=== PATIENT | male | born 1935 | race Caucasian/White ===

== ENCOUNTER 2017-11-19 12:32 | Observation (INO) | payer MEDICARE, OTHER, SELFPAY ==
[2017-11-19] VITALS (12 sets, daily range): BP systolic 119–173; BP diastolic 59–103; PULSE 58–103; RESP 12–20; TEMP 36.6–36.9; O2SAT 94–98; BMI 28.9; BMI 29.0
--- NOTE | 2017-11-19 12:49 | RAD_ITS ---
STUDY: X-RAY CHEST REASON FOR EXAM: Male, 82 years old. Left anterior chest pain. TECHNIQUE: Single AP portable view of the chest. COMPARISON: Comparison is made with prior study dated December 10, 2015. FINDINGS: EKG electrodes are seen. Scattered calcified granulomas. The lungs are clear. There is no demonstrated pleural abnormality. Normal size heart. Normal mediastinum and gerber. Normal visualized pulmonary arteries. There is atherosclerotic tortuosity of the aortic arch and descending thoracic aorta. Normal visualized thoracic spine. Normal visualized ribs, clavicles, and shoulders. There is no demonstrated abnormality of the visualized soft tissue structures of the upper abdomen. RAD/Chest 1 View (Portable) IMPRESSION: No acute abnormality is seen. Electronically Signed: Neil Hines MD at 13:31 EST Tel [phone], Service support ,
--- NOTE | 2017-11-19 12:49 | EKG12_ITS ---
Test Reason : Blood Pressure : / mmHG Vent. Rate : 094 BPM Atrial Rate : 094 BPM P-R Int : 222 ms QRS Dur : 092 ms QT Int : 352 ms P-R-T Axes : 037 -17 016 degrees QTc Int : 440 ms Sinus rhythm with 1st degree A-V block Otherwise normal ECG Confirmed by LOUANN JAFFE, MANUEL ([id number]), photograph editor NAGA RANDHAWA ([id number]) on 11/22/2017 1:33:41 PM Referred By: SHANTELLE Confirmed By:MANUEL LEW MD
--- NOTE | 2017-11-19 12:54 | ED.VISSUMM ---
- ER Visit Summary Date of Service: 11/19/17 Chief Complaint: Achy left-sided chest pain with diaphoresis on Saturday and midsternal chest discomfort with radiation to both arms and diaphoresis this morning History of Present Illness: The patient is a 82 M because of aching chest discomfort that occurred on Saturday while at rest. Lasted approximately hour. He took one his 's nitro. There was no effect. He states it did not burn under his tongue. He denied nausea question dyspnea. There was no alleviating, precipitating or exacerbating factors. Both parents had [place] in their 80s. He states this morning at 0930 while at rest developed mid chest discomfort with radiation to left and right shoulder and down the right and left upper extremity associated with significant diaphoresis and no other symptoms. Since he was still having pain 1 hour after onset he took 1 of his 's nitroglycerin tablets. He states this 1 burned and it did improve his discomfort. He reports mild discomfort presently. He denies any fever, chills or night sweats. He denies any ocular, visual or auditory symptoms. He denies back pain. He denies any paresthesia, anesthesia or motor weakness. He denies any GI or symptoms. He was seen by Dr. Lonny Masters many years ago and his workup at that time was negative. Physical Examination: Patient's vitals remarkable blood pressure 173/95 and heart rate 103. He states he does not have history of hypertension. He is slightly diaphoretic. HEENT exam is unremarkable. Heart is regular without murmur, gallop or rub. S1 and S2 are normal. Lungs are clear to auscultation with good movement of air bilaterally. There is no reproducible chest or abdominal pain. Abdomen is soft nontender with no palpable subtle mass abdominal bruit. There is no asymmetry, swelling, discoloration, leg vein distention, palpable cords or tenderness along the distribution of the deep venous system. Patient is alert and oriented ?3. Motor is 5 over 5. Sensory is intact. DTRs are symmetric with no clonus or Babinski sign. Cranial 2 through 12 are intact. Cerebellar testing is normal. Test Results: EKG reveals a sinus rhythm rate of 94 with first-degree AV block, otherwise normal. Portable chest x-ray to read by me as negative. CBC is unremarkable. BMP reveals slight elevation of glucose of 116. Troponin less than 0.02. Emergency Department Course and Treatment: Chest pain workup was undertaken to evaluate cardiac versus noncardiac etiology. He will receive aspirin since he does not take aspirin and nitroglycerin was ordered since he still complaining of discomfort. Treatment Plan: Serial blood work and provocative testing Disposition: Hospitalist was informed the patient and will admit 23 hour observation monitored bed Impression: Chest pain unknown etiology This note was generated with PowWow[employer] dictation software. It may contain incorrect words, spelling, and punctuation that were not noted in review of the chart prior to signing ED Disposition - Plan for ED Patient: Chief Complaint: Chest Pain Referrals: Al Higuera MD [Primary Care Provider] -
--- NOTE | 2017-11-19 12:58 | ED.DCSUM_ITS ---
- ER Visit Summary Date of Service: 11/19/17 Chief Complaint: Achy left-sided chest pain with diaphoresis on Saturday and midsternal chest discomfort with radiation to both arms and diaphoresis this morning History of Present Illness: The patient is a 82 M because of aching chest discomfort that occurred on Saturday while at rest. Lasted approximately hour. He took one his 's nitro. There was no effect. He states it did not burn under his tongue. He denied nausea question dyspnea. There was no alleviating , precipitating or exacerbating factors. Both parents had [place] in their 80s. He states this morning at 0930 while at rest developed mid chest discomfort with radiation to left and right shoulder and down the right and left upper extremity associated with significant diaphoresis and no other symptoms. Since he was still having pain 1 hour after onset he took 1 of his 's nitroglycerin tablets. He states this 1 burned and it did improve his discomfort. He reports mild discomfort presently. He denies any fever, chills or night sweats. He denies any ocular, visual or auditory symptoms. He denies back pain. He denies any paresthesia, anesthesia or motor weakness. He denies any GI or symptoms. He was seen by Dr. Lonny Masters many years ago and his workup at that time was negative. Physical Examination: Patient's vitals remarkable blood pressure 173/95 and heart rate 103. He states he does not have history of hypertension. He is slightly diaphoretic. HEENT exam is unremarkable. Heart is regular without murmur, gallop or rub. S1 and S2 are normal. Lungs are clear to auscultation with good movement of air bilaterally. There is no reproducible chest or abdominal pain. Abdomen is soft nontender with no palpable subtle mass abdominal bruit. There is no asymmetry, swelling, discoloration, leg vein distention, palpable cords or tenderness along the distribution of the deep venous system. Patient is alert and oriented ?3. Motor is 5 over 5. Sensory is intact. DTRs are symmetric with no clonus or Babinski sign. Cranial 2 through 12 are intact. Cerebellar testing is normal. Test Results: EKG reveals a sinus rhythm rate of 94 with first-degree AV block, otherwise normal. Portable chest x-ray to read by me as negative. CBC is unremarkable. BMP reveals slight elevation of glucose of 116. Troponin less than 0.02. Emergency Department Course and Treatment: Chest pain workup was undertaken to evaluate cardiac versus noncardiac etiology. He will receive aspirin since he does not take aspirin and nitroglycerin was ordered since he still complaining of discomfort. Treatment Plan: Serial blood work and provocative testing Disposition: Hospitalist was informed the patient and will admit 23 hour observation monitored bed Impression: Chest pain unknown etiology This note was generated with [employer] dictation software. It may contain incorrect words, spelling, and punctuation that were not noted in review of the chart prior to signing ED Disposition - Plan for ED Patient: Chief Complaint: Chest Pain Referrals: Al Higuera MD [Primary Care Provider] -
[2017-11-19 13:00] LABS: Absolute Lymphocyte Count 2.01 X10^3/ul (0.83-4.51); Absolute Neutrophil Count 4.8 X10^3/uL (2.0-7.7); Basophil# 0.04 X10^3/uL; Basophil% 0.5 % (0-1); Eosinophil# 0.05 X10^3/uL; Eosinophils% 0.7 % (0-5); Hematocrit 42.6 % (40-54); Hemoglobin 14.5 g/dl (13.0-16.5); Lymphocyte # 2.01 X10^3/ul (4.0); Lymphocyte % 26.8 % (19-41); Mean Corpuscular Hgb 32.8 pg (27.0-32.0); Mean Corpuscular Volume 96.4 fL (80-94); Mean Platelet Vol. 10.3 fl (6.2-12.0); Monocyte# 0.63 X10^3/uL; Monocyte% 8.4 % (0-10); Neutrophil # 4.75 X10^3/uL (2.7-7.7); Neutrophil % 63.3 % (47-70); Platelet Count 272 K/mm3 (150-450); RBC Distribution Width CV 13.5 % (11.6-14.6); RBC Distribution Width SD 46.3 fl (35.1-43.9); Red Blood Count 4.42 M/mm3 (4.6-6.2); White Blood Count 7.5 K/mm3 (4.4-11.0)
[2017-11-19 13:02] LABS: POSITIVE COUNT NO; POSITIVE DIFFERENTIAL NO; POSITIVE MORPHOLOGY NO
[2017-11-19] MEDS: Aspirin 81 MG TAB.CHEW 324 MG PO (13:05)
[2017-11-19 13:15] LABS: Anion Gap 9 (5-15); BUN 16 mg/dL (7-18); BUN/Creat Ratio 16.3 RATIO (10-20); Chloride 106 mmol/L (98-107); Creatinine, Serum 0.98 mg/dL (0.70-1.30); EST Glomerular Filtration Rate 78 mL/min (>60); Est Glom Filt Rate - Afr Amer 95 mL/min (>60); Estimated Creatinine Clearance 58.16 ml/min; Glucose 116 mg/dL (74-106); Potassium 3.7 mmol/L (3.5-5.1); Sodium Level 140 mmol/L (136-145)
--- NOTE | 2017-11-19 13:52 | PCM.HP.STD ---
Problem List (1) Chest pain Status: Acute Qualifiers: Chest pain type: precordial pain Qualified Code(s): R07.2 - Precordial pain History of Present Illness Date of Admission: 11/19/17 Chief Complaint: Chest pain The patient is a 82 year old M in the emergency room at [facility] with chief complaint of midsternal chest pain which occurred this morning at rest. Patient described the pain as being dull and pressure-like, radiating to both arms, it also caused him to be sweaty and nauseated. Patient took 1 of his 's nitroglycerin today and this resolved the chest pain. The chest pain lasted approximately half an hour. Patient also stated that 48 hours ago he had an additional episode of chest discomfort which lasted 10 minutes this time it went into the left shoulder and down the left arm he described this also as a dull achy feeling and pressure-like in nature. Patient took 1 of his 's nitroglycerin but it did not have any effect on the discomfort and it went away after about 10 minutes. Patient has no history of medical problems, he takes no medications, he does take a baby aspirin daily. Evaluation in the emergency room included an EKG which showed a normal sinus rhythm without evidence of ischemic changes, patient's labs were unremarkable, patient's chest x-ray was unremarkable. On examination, patient's heart rate and rhythm was regular with occasional unifocal PVCs noted on the monitor, lungs are clear bilaterally, patient was alert and appropriate and had no lower extremity edema. Patient will be placed into observation status on PCU for chest pain, cardiac enzymes will be cycled, echocardiogram will be obtained, patient will undergo nuclear stress test (resting) if his enzymes remain negative. I will keep him on a baby aspirin a day for now Past Medical History Past Medical History (Chronic Problems): Chronic Problems Spinal stenosis (Chronic) Allergies gluten Adverse Reaction (Verified 06/16/17 15:18) Other celiac's disease Home Medications: Ambulatory Orders Medication Instructions Recorded NK [NK] 11/19/17 Surgical History: appendectomy, cataract, - - Lumbar surgery for spinal stenosis Psychiatric History: No pertinent psych hx Lives: Spouse/ Significant Other Smoking Status: Never smoker Tobacco Use: Non-smoker Alcohol: None Drugs: None - *Family History Maternal History Items: No pertinent history Paternal History Items: Heart Disease - of heart failure Review of Systems Constitutional: Denies: Anorexia, Chills, Fever, Night Sweats, Malaise, Weakness, Weight Change, Fatigue Eyes: Denies: Blurred vision, Cataracts, Conjunctivae Inflammation, Double vision, Drainage, Eyelid Inflammation HEENT: Denies: Difficulty Swallowing, Dysphasia, Ear Pain, Eye Pain, Head Aches, Hearing Changes, Nasal bleeding, Nasal Congestion, Post Nasal Drip Cardiovascular: Reports: Chest Pain, Chest Pressure. Denies: Claudication, Chest Tightness, Edema, Heaviness, Light Headedness, Orthopnea, Palpitations, Paroxysmal Noc. Dyspnea, Syncope Respiratory: Denies: Cough, Hemoptysis, Pleuritic Pain, Shortness of Breath, Shortness of breath at rest, Shortness of breath upon exertion, Sputum production, Wheezing Gastrointestinal: Reports: Nausea - With episodes of chest discomfort. Denies: Abdominal Pain, Constipation, Diarrhea, Hematemesis, Hematochezia, Melena, Vomiting Genitourinary: Denies: Dysuria, Frequency, Hematuria, Hesitancy, Incontinence, Nocturia, Urgency Musculoskeletal: Denies: Foot Pain, Hand Pain, Joint Pain, Joint stiffness, Joint swelling, Joint Tenderness Skin: Denies: Dryness, Jaundice, Pruritis, Rash Neurological: Denies: Balance problems, Blurred vision, Double vision, Slurred speech, Difficulty swallowing, Focal weakness, Headaches, Incoordination, Numbness, Tingling Psychiatric: Denies: Anxiety, Depression, Homicidal Ideations, Suicidal Ideations Endocrine: Denies: Change in Body Habitus, Heat/ Cold Intolerance, Polydipsia, Polyuria Hematologic/ Lymphatic: Denies: Adenopathy, Anemia, Easy Bruising, Easy Bleeding, Petechiae, Purpura VTE Information - Inpt Only VTE Present on Admission: No VTE Mechan Device Prophylaxis: None VTE Pharm Prophylaxis ordered?: Yes - Physical Exam General: Alert, Oriented x3, Cooperative, No apparent distress, Well developed, Well nourished HEENT: Atraumatic, PERRLA, EOMI, Normocephalic Oral: Moist Mucosa Neck: Supple, No JVD, Negative Carotid Bruits Lungs: Clear to auscultation, Normal air movement, No rhonchi, No wheeze, No rales Cardiovascular: Regular rate, Regular Rhythm, Normal S1, Normal S2, No murmurs, PMI Normal, No rub noted, No Gallop, - - unifocal PVCs are noted occasionally on the monitor Abdomen: Bowel Sounds Present, Soft, Non Tender, Non-Distended, No hernias noted Extremities: No clubbing, No cyanosis, No edema, Capillary Refill Less than 3 Seconds Skin: No rashes, No breakdown Musculoskeletal: No Tenderness to Palpation of Joints or Extremities Neurological: Cranial nerves II-XII grossly intact, Neuro grossly intact, Sensory exam intact to light touch and pain, Coordination normal Psych/Mental Status: Normal Affect, Appropriate, Alert and oriented to time, place, person, mood and affect Vital Signs Temp Pulse Resp BP Pulse Ox 98.2 F 91 16 127/83 H 98 11/19/17 12:34 11/19/17 13:10 11/19/17 12:34 11/19/17 13:10 11/19/17 13:06 Oxygen Flow Rate 2 Oxygen Delivery Method Nasal Cannula Weight: 89.584 kg Body Mass Index (BMI) 30.0 Laboratory Tests Past 24 Hrs 11/19/17 11/19/17 12:40 12:40 WBC 7.5 RBC 4.42 L Hgb 14.5 Hct 42.6 MCV 96.4 H MCH 32.8 H MCHC 34.0 RDW 13.5 RDW Differential 46.3 H Plt Count 272 MPV 10.3 Immature Gran % (Auto) 0.300 Neut % (Auto) 63.3 Lymph % (Auto) 26.8 [place] % (Auto) 8.4 Eos % (Auto) 0.7 Baso % (Auto) 0.5 Absolute Neuts (auto) 4.8 Absolute Lymphs (auto) 2.01 Total Counted Not Reportable Sodium 140 Potassium 3.7 Chloride 106 Carbon Dioxide 25.0 Anion Gap 9 BUN 16 Creatinine 0.98 Estim Creat Clear Calc 58.16 Est GFR (MDRD) Af Amer 95 Est GFR (MDRD) Non-Af 78 BUN/Creatinine Ratio 16.3 Glucose 116 H Calcium 9.0 Troponin I < 0.02 Assessment/Plan #1 precordial chest pain-etiology unclear, patient will be placed in observation status on PCU, enzymes will be cycled, patient will have an echocardiogram, if enzymes are negative, patient will have a resting nuclear stress test tomorrow. Patient will remain on one baby aspirin a day #2 unifocal PVCs-significance unknown patient will be monitored on telemetry Code Visit OBSV E&M: [id number] Initial observation care L3
--- NOTE | 2017-11-19 14:02 | HP.PCM_ITS ---
Problem List (1) Chest pain Status: Acute Qualifiers: Chest pain type: precordial pain Qualified Code(s): R07.2 - Precordial pain History of Present Illness Date of Admission: 11/19/17 Chief Complaint: Chest pain The patient is a 82 year old M in the emergency room at [facility] with chief complaint of midsternal chest pain which occurred this morning at rest. Patient described the pain as being dull and pressure-like, radiating to both arms, it also caused him to be sweaty and nauseated. Patient took 1 of his 's nitroglycerin today and this resolved the chest pain. The chest pain lasted approximately half an hour. Patient also stated that 48 hours ago he had an additional episode of chest discomfort which lasted 10 minutes this time it went into the left shoulder and down the left arm he described this also as a dull achy feeling and pressure-like in nature. Patient took 1 of his 's nitroglycerin but it did not have any effect on the discomfort and it went away after about 10 minutes. Patient has no history of medical problems, he takes no medications, he does take a baby aspirin daily. Evaluation in the emergency room included an EKG which showed a normal sinus rhythm without evidence of ischemic changes, patient 's labs were unremarkable, patient's chest x-ray was unremarkable. On examination, patient's heart rate and rhythm was regular with occasional unifocal PVCs noted on the monitor, lungs are clear bilaterally, patient was alert and appropriate and had no lower extremity edema. Patient will be placed into observation status on PCU for chest pain, cardiac enzymes will be cycled, echocardiogram will be obtained, patient will undergo nuclear stress test ( resting) if his enzymes remain negative. I will keep him on a baby aspirin a day for now Past Medical History Past Medical History (Chronic Problems): Chronic Problems Spinal stenosis (Chronic) Allergies gluten Adverse Reaction (Verified 06/16/17 15:18) Other celiac's disease Home Medications: Ambulatory Orders Medication Instructions Recorded NK [NK] 11/19/17 Surgical History: appendectomy, cataract, - - Lumbar surgery for spinal stenosis Psychiatric History: No pertinent psych hx Lives: Spouse/ Significant Other Smoking Status: Never smoker Tobacco Use: Non-smoker Alcohol: None Drugs: None - *Family History Maternal History Items: No pertinent history Paternal History Items: Heart Disease - of heart failure Review of Systems Constitutional: Denies: Anorexia, Chills, Fever, Night Sweats, Malaise, Weakness , Weight Change, Fatigue Eyes: Denies: Blurred vision, Cataracts, Conjunctivae Inflammation, Double vision, Drainage, Eyelid Inflammation HEENT: Denies: Difficulty Swallowing, Dysphasia, Ear Pain, Eye Pain, Head Aches , Hearing Changes, Nasal bleeding, Nasal Congestion, Post Nasal Drip Cardiovascular: Reports: Chest Pain, Chest Pressure. Denies: Claudication, Chest Tightness, Edema, Heaviness, Light Headedness, Orthopnea, Palpitations, Paroxysmal Noc. Dyspnea, Syncope Respiratory: Denies: Cough, Hemoptysis, Pleuritic Pain, Shortness of Breath, Shortness of breath at rest, Shortness of breath upon exertion, Sputum production, Wheezing Gastrointestinal: Reports: Nausea - With episodes of chest discomfort. Denies: Abdominal Pain, Constipation, Diarrhea, Hematemesis, Hematochezia, Melena, Vomiting Genitourinary: Denies: Dysuria, Frequency, Hematuria, Hesitancy, Incontinence, Nocturia, Urgency Musculoskeletal: Denies: Foot Pain, Hand Pain, Joint Pain, Joint stiffness, Joint swelling, Joint Tenderness Skin: Denies: Dryness, Jaundice, Pruritis, Rash Neurological: Denies: Balance problems, Blurred vision, Double vision, Slurred speech, Difficulty swallowing, Focal weakness, Headaches, Incoordination, Numbness, Tingling Psychiatric: Denies: Anxiety, Depression, Homicidal Ideations, Suicidal Ideations Endocrine: Denies: Change in Body Habitus, Heat/ Cold Intolerance, Polydipsia, Polyuria Hematologic/ Lymphatic: Denies: Adenopathy, Anemia, Easy Bruising, Easy Bleeding , Petechiae, Purpura VTE Information - Inpt Only VTE Present on Admission: No VTE Mechan Device Prophylaxis: None VTE Pharm Prophylaxis ordered?: Yes - Physical Exam General: Alert, Oriented x3, Cooperative, No apparent distress, Well developed, Well nourished HEENT: Atraumatic, PERRLA, EOMI, Normocephalic Oral: Moist Mucosa Neck: Supple, No JVD, Negative Carotid Bruits Lungs: Clear to auscultation, Normal air movement, No rhonchi, No wheeze, No rales Cardiovascular: Regular rate, Regular Rhythm, Normal S1, Normal S2, No murmurs, PMI Normal, No rub noted, No Gallop, - - unifocal PVCs are noted occasionally on the monitor Abdomen: Bowel Sounds Present, Soft, Non Tender, Non-Distended, No hernias noted Extremities: No clubbing, No cyanosis, No edema, Capillary Refill Less than 3 Seconds Skin: No rashes, No breakdown Musculoskeletal: No Tenderness to Palpation of Joints or Extremities Neurological: Cranial nerves II-XII grossly intact, Neuro grossly intact, Sensory exam intact to light touch and pain, Coordination normal Psych/Mental Status: Normal Affect, Appropriate, Alert and oriented to time, place, person, mood and affect Vital Signs Temp Pulse Resp BP Pulse Ox 98.2 F 91 16 127/83 H 98 11/19/17 12:34 11/19/17 13:10 11/19/17 12:34 11/19/17 13:10 11/19/17 13:06 Oxygen Flow Rate 2 Oxygen Delivery Method Nasal Cannula Weight: 89.584 kg Body Mass Index (BMI) 30.0 Laboratory Tests Past 24 Hrs 11/19/17 11/19/17 12:40 12:40 WBC 7.5 RBC 4.42 L Hgb 14.5 Hct 42.6 MCV 96.4 H MCH 32.8 H MCHC 34.0 RDW 13.5 RDW Differential 46.3 H Plt Count 272 MPV 10.3 Immature Gran % (Auto) 0.300 Neut % (Auto) 63.3 Lymph % (Auto) 26.8 [place] % (Auto) 8.4 Eos % (Auto) 0.7 Baso % (Auto) 0.5 Absolute Neuts (auto) 4.8 Absolute Lymphs (auto) 2.01 Total Counted Not Reportable Sodium 140 Potassium 3.7 Chloride 106 Carbon Dioxide 25.0 Anion Gap 9 BUN 16 Creatinine 0.98 Estim Creat Clear Calc 58.16 Est GFR (MDRD) Af Amer 95 Est GFR (MDRD) Non-Af 78 BUN/Creatinine Ratio 16.3 Glucose 116 H Calcium 9.0 Troponin I < 0.02 Assessment/Plan #1 precordial chest pain-etiology unclear, patient will be placed in observation status on PCU, enzymes will be cycled, patient will have an echocardiogram, if enzymes are negative, patient will have a resting nuclear stress test tomorrow. Patient will remain on one baby aspirin a day #2 unifocal PVCs-significance unknown patient will be monitored on telemetry Code Visit OBSV E&M: [id number] Initial observation care L3
--- NOTE | 2017-11-19 14:20 | ECHOD_ITS ---
Reason For Study: CHEST PAIN Procedure This was a 2D Doppler, Color Flow transthoracic echocardiogram. The exam was of fair technical quality due to poor acoustic windows. The study was technically difficult. Contrast injection was performed. Exam performed in department. Left Ventricle Normal LV size. Left ventricular systolic function is normal. The estimated ejection fraction is 60 %. No regional wall motion abnormalities noted. Right Ventricle Normal RV size. Normal systolic function. Atria Normal left atrium. Normal right atrium. No doppler evidence for ASD. Mitral Valve There is mild to moderate mitral annular calcification. Equivocal mitral valve prolapse. Trivial mitral valve insufficiency. Tricuspid Valve Normal tricuspid valve. Trivial tricuspid valve insufficiency. Right ventricular systolic pressure estimated to be 31 mmHg. Aortic Valve Trisinus/trileaflet aortic valve. Mild focal aortic valve calcification. Trivial aortic valve insufficiency. Pulmonic Valve The pulmonic valve is not well visualized. Trivial eccentric pulmonic valve insufficiency. Great Vessels Normal sized aortic root. Pericardium/Pleural No pericardial effusion. Medication Diluted definity 3ml given slow IV push to enhance endocardial definition. MMode/2D Measurements & Calculations LVIDd: 4.9 cm IVSd: 1.00 cm Ao root diam: 3.7 cm LVIDs: 3.5 cm LVPWd: 1.2 cm LA dimension: 3.8 cm RVDd: 3.9 cm FS: 27.7 % LAV(MOD-bp): 39.6 ml EDV(MOD-sp4): 117.4 ml EDV(MOD-sp2): 106.9 ml LAV(MOD-bp) Indexed: 19.4 ml/m2 ESV(MOD-sp4): 52.9 ml EF(MOD-sp2): 64.3 % LAV(MOD-sp2): 52.1 ml EF(MOD-sp4): 55.0 % LAV(MOD-sp4): 24.1 ml SV(MOD-sp4): 64.5 ml SV(MOD-sp2): 68.8 ml LA A4 area: 11.3 cm2 RA A4 area: 8.8 cm2 Doppler Measurements & Calculations MV E max jeannine: 63.9 cm/sec Ao V2 max: 143.1 cm/sec AI max jeannine: 332.5 cm/sec MV A max jeannine: 114.1 cm/sec Ao max P.2 mmHg AI max P.2 mmHg MV E/A: 0.56 AI dec slope: 163.4 cm/sec2 AI P1/2t: 596.1 msec PA V2 max: 110.3 cm/sec PI end-d jeannine: 129.4 cm/sec TR max jeannine: 263.9 cm/sec TR max P.9 mmHg Interpretation Summary The study was technically difficult. Contrast injection was performed. Left ventricular systolic function is normal. The estimated ejection fraction is 60 %. There is mild to moderate mitral annular calcification. Equivocal mitral valve prolapse. Trivial mitral valve insufficiency. Trivial tricuspid valve insufficiency. Mild focal aortic valve calcification. Trivial aortic valve insufficiency. Trivial eccentric pulmonic valve insufficiency. Right ventricular systolic pressure estimated to be 31 mmHg. Ordering Physician: Joshua Garrison Referring Physician: VICKI SALINAS Performed By: Ya Robleod RDCS, RVT
[2017-11-19] MEDS: Heparin Injection 5,000 UNITS/ML Syringe 5000 UNITS SC ×2 (15:57→21:02)
[2017-11-20] MEDS: 0.9% NaCl Peripheral Flush Adult/Peds IV (02:47)
[2017-11-20 02:50] VITALS: BP 133/70; PULSE 66; RESP 18; TEMP 36.7; O2SAT 95
[2017-11-20 03:09] LABS: Absolute Lymphocyte Count 1.91 X10^3/ul (0.83-4.51); Absolute Neutrophil Count 3.3 X10^3/uL (2.0-7.7); Basophil# 0.05 X10^3/uL; Basophil% 0.8 % (0-1); Eosinophil# 0.06 X10^3/uL; Hematocrit 37.4 % (40-54); Hemoglobin 13.2 g/dl (13.0-16.5); Lymphocyte # 1.91 X10^3/ul (4.0); Lymphocyte % 31.9 % (19-41); Mean Corp Hgb Conc 35.3 g/gl (32-36); Mean Corpuscular Hgb 33.8 pg (27.0-32.0); Mean Corpuscular Volume 95.9 fL (80-94); Mean Platelet Vol. 10.3 fl (6.2-12.0); Monocyte# 0.67 X10^3/uL; Monocyte% 11.2 % (0-10); Neutrophil # 3.29 X10^3/uL (2.7-7.7); Neutrophil % 54.9 % (47-70); POSITIVE COUNT NO; POSITIVE DIFFERENTIAL NO; POSITIVE MORPHOLOGY NO; Platelet Count 230 K/mm3 (150-450); RBC Distribution Width CV 13.3 % (11.6-14.6); RBC Distribution Width SD 45.1 fl (35.1-43.9)
[2017-11-20 03:12] VITALS: PULSE 65
[2017-11-20 03:13] LABS: International Normalized Ratio 1.2; Prothrombin Time (Protime)PT. 14.9 SECONDS (11.7-14.9)
[2017-11-20 03:14] LABS: Partial Thromboplast Time 51.3 Seconds (24.1-36.2)
[2017-11-20 03:47] LABS: Anion Gap 6 (5-15); BUN 16 mg/dL (7-18); BUN/Creat Ratio 18.9 RATIO (10-20); Calcium,Total 8.4 mg/dL (8.5-10.1); Chloride 106 mmol/L (98-107); Creatinine, Serum 0.85 mg/dL (0.70-1.30); EST Glomerular Filtration Rate 92 mL/min (>60); Est Glom Filt Rate - Afr Amer 112 mL/min (>60); Estimated Creatinine Clearance 67.06 ml/min; Glucose 98 mg/dL (74-106); Sodium Level 140 mmol/L (136-145)
--- NOTE | 2017-11-20 05:55 | EKG12_ITS ---
Test Reason : MORNING EKG Blood Pressure : / mmHG Vent. Rate : 064 BPM Atrial Rate : 064 BPM P-R Int : 214 ms QRS Dur : 098 ms QT Int : 410 ms P-R-T Axes : 021 -10 020 degrees QTc Int : 422 ms Sinus rhythm with 1st degree A-V block Otherwise normal ECG Confirmed by LOUANN JAFFE, MANUEL ([id number]), clinical editor NAGA RANDHAWA ([id number]) on 11/25/2017 1:58:29 PM Referred By: Confirmed By:MANUEL LEW MD
[2017-11-20 06:58] VITALS: PULSE 70
[2017-11-20] MEDS: Aspirin 81 MG TAB.CHEW PO (07:42)
[2017-11-20 07:45] VITALS: BP 140/71; PULSE 71; RESP 15; TEMP 36.7; O2SAT 96
[2017-11-20 11:00] VITALS: PULSE 62
[2017-11-20] MEDS: Heparin Injection 5,000 UNITS/ML Syringe 5000 UNITS SC (13:41)
[2017-11-20 13:42] VITALS: BP 132/75; PULSE 68; RESP 16; TEMP 37.1; O2SAT 94
--- NOTE | 2017-11-20 13:48 | PCM.DC ---
- Discharge Diagnoses Reason(s) for Visit for Discharge Instructions: chest pain You will use the following diet at home:: Regular Your food should be the consistency of: Regular Your liquids should be the consistency of: Regular/Thin Discharge Activity: Return to Normal Activity Additional Instructions: Your stress test was negative. Please follow-up with your doctor on discharge. Allergies/Adverse Reactions: Allergies gluten Adverse Reaction (Verified 06/16/17 15:18) Other celiac's disease Medications to take at Discharge Aspirin [Aspirin, Baby] 81 mg PO DAILY@0800 #0 tab.chew 11/20/17 Primary Care Physician: Al Higuera MD [Primary Care Provider] - Please follow up with your Primary Care Physician in: within 2 weeks Proposed Discharge Date: 11/20/17
--- NOTE | 2017-11-20 13:50 | PCM.DC.SUM ---
Discharge Date and Diagnosis Date of Admission: 11/19/17 Date of Discharge: 11/20/17 - Primary Discharge Diagnosis Chest pain - Secondary Discharge Diagnosis Chronic Problems Spinal stenosis (Chronic) Hospital Course and Treatment Imaging Results: Clinical Impression(s) from Imaging Studies Chest X-Ray 11/19/17 12:49 IMPRESSION: No acute abnormality is seen. Electronically Signed: Neil Hines MD at 13:31 EST Tel [phone], Service support , None Operations: None Procedures: None Summary of Care Provided: 82 year old M with no significant past medical history who comes in to the hospital with complaints of midsternal chest pain that located at rest, described as dull and pressure-like , radiating to both arms, causing him to be sweaty and nauseated. Patient says his chest pain went away with his 's nitroglycerin. His admitting EKG showed normal sinus rhythm with no ST-T changes, his labs are unremarkable as well as his chest x-ray. Patient was admitted to the monitored bed, monitored on telemetry with no acute events. He underwent 2D echo that was essentially normal. He also underwent stress test that was negative. Patient continued to be asymptomatic throughout his hospital stay and was subsequently discharged to continue on baby aspirin. He will follow-up with his primary care doctor within 2 weeks. Discharge Diet: No Restrictions Discharge Activity: Return to Normal Activity Home Medications: Medications to take at Discharge Aspirin [Aspirin, Baby] 81 mg PO DAILY@0800 #0 tab.chew 11/20/17 Primary Care Physician: Al Higuera MD [Primary Care Provider] - Please follow up with your Primary Care Physician in: within 2 weeks Disposition: Home Minutes spent on discharge:: 25 Patient Condition:: Stable Meaningful Use Info Meaningful Use Diagnoses (Choose all that apply): None applicable Code Visit Inpatient E&M: 78560 Disch Hosp
--- NOTE | 2017-11-20 14:14 | CHAPLAIN ---
Type of Pastoral Visit _x__ Initial Visit ___ Follow-up Visit ___ On-call Visit ___ General Patient Visit ___ Spiritual Assessment ___ Family Conference ___ Bereavement ___ Rapid Response ___ Code Blue ___ Other (describe below) Pastoral Care Referral From _x__ Patient ___ Family ___ Nurse ___ Physician ___ Plating Tank Operator Apprentice ___ Outsole Compressor ___ Other (describe below) Sacrament/Intervention _x__ Active listening ___ Anointing ___ Alevism ___ Bereavement ___ Communion ___ Linda exploration ___ ___ Life review _x__ Prayer ___ Reconciliation ___ Sacrament of Sick ___ Supportive presence ___ Wedding ___ Other (describe below) Pastoral Comments
--- NOTE | 2017-11-20 14:24 | STRESSREP ---
Stress Test Report Pharmacologic myocardial perfusion stress test. 82-year-old man with a history of chest pain. Stress protocol: Resting EKG demonstrates sinus rhythm with a rate of 71 bpm resting blood pressure is 142/84 mmHg. 0.4 mg of regadenoson was infused per usual protocol followed by rapid intravenous saline flush injection continuous EKG monitoring was performed. The patient maintained sinus rhythm throughout the recording the resting heart rate was 72 bpm with a maximum heart rate of 94 bpm. The maximum workload was 1 metabolic equivalent. At rest there were no ST or T-wave changes noted to suggest abnormal flow reserve at peak infusion no ST or T-wave changes were noted to suggest abnormal flow reserve. Myocardial perfusion protocol. 9.9 mCi of technetium 99m sestamibi was injected at rest. 0.4 mg of regadenoson was infused per usual protocol peak infusion 30.3 mCi of technetium 99m sestamibi was injected. Stress images were obtained. Stress and rest images were reconstructed and compared in the short axis vertical long and horizontal long axis. Gated images were also obtained. Perfusion SPECT analysis: Review of the stress images demonstrate normal uptake of tracer noted in all areas of the myocardium. The resting images similarly demonstrate normal uptake of tracer noted in all areas of the myocardium. No areas of reversibility are noted suggest ischemia. Gated SPECT analysis: The gated ejection fraction is noted to be 61%. Conclusion: Normal pharmacologic myocardial perfusion stress test. Preserved ejection fraction.
--- NOTE | 2017-11-20 15:05 | STRESSREP_ITS ---
Stress Test Report Pharmacologic myocardial perfusion stress test. 82-year-old man with a history of chest pain. Stress protocol: Resting EKG demonstrates sinus rhythm with a rate of 71 bpm resting blood pressure is 142/84 mmHg. 0.4 mg of regadenoson was infused per usual protocol followed by rapid intravenous saline flush injection continuous EKG monitoring was performed. The patient maintained sinus rhythm throughout the recording the resting heart rate was 72 bpm with a maximum heart rate of 94 bpm. The maximum workload was 1 metabolic equivalent. At rest there were no ST or T- wave changes noted to suggest abnormal flow reserve at peak infusion no ST or T- wave changes were noted to suggest abnormal flow reserve. Myocardial perfusion protocol. 9.9 mCi of technetium 99m sestamibi was injected at rest. 0.4 mg of regadenoson was infused per usual protocol peak infusion 30.3 mCi of technetium 99m sestamibi was injected. Stress images were obtained. Stress and rest images were reconstructed and compared in the short axis vertical long and horizontal long axis. Gated images were also obtained. Perfusion SPECT analysis: Review of the stress images demonstrate normal uptake of tracer noted in all areas of the myocardium. The resting images similarly demonstrate normal uptake of tracer noted in all areas of the myocardium. No areas of reversibility are noted suggest ischemia. Gated SPECT analysis: The gated ejection fraction is noted to be 61%. Conclusion: Normal pharmacologic myocardial perfusion stress test. Preserved ejection fraction.
== END 2017-11-20 14:20 | disposition home or self-care (01) ==
LOC: ED 13:35 → PCU 13:56
PROVIDERS: Admitting Provider Internal Medicine; Emergency Provider Emergency Medicine; Family Provider Family Medicine; PCP Family Medicine; Visit Provider Internal Medicine
DX: R07.2 Precordial pain (principal); M48.061 Spinal stenosis, lumbar region without neurogenic claudication; M25.512 Pain in left shoulder; M25.511 Pain in right shoulder; I49.3 Ventricular premature depolarization; R11.0 Nausea
CPT/HCPCS: 36415; 71045; 78452; 80048; 84484; 85025; 85610; 85730; 93005; 93017; 93306; 96372; 99218; 99285; A9500; Q9957; A4216; C8929; G0378; J2785

== ENCOUNTER → 2017-12-04 14:43 | Outpatient (CLI) | payer MEDICARE, OTHER, SELFPAY ==
--- NOTE | 2017-12-04 15:00 | RAD_ITS ---
STUDY: X-RAY - ABDOMEN/PELVIS REASON FOR EXAM: Male, 82 years old. Constipation. Pain. TECHNIQUE: AP supine and upright views of the abdomen and pelvis. COMPARISON: January 22, 2017 FINDINGS: Normal visualized lung bases. There is an unremarkable bowel gas pattern. There is a moderate amount of feces in the colon. There is no demonstrated free abdominal air. The visualized liver, spleen and kidneys are grossly normal in size and morphology. Incidentally noted is a stable calcification in the right upper quadrant of the abdomen There are postsurgical changes in the region of the prostate. There is generalized osteopenia with lower lumbar spondylosis and postsurgical changes. RAD/Abd Inc Decub and/or Erect IMPRESSION: Moderate amount of feces in the colon. No acute pathology. Electronically Signed: Daniel Lora MD at 19:09 EST , Service support ,
== END ==
PROVIDERS: Family Provider Family Medicine; PCP Family Medicine; Visit Provider Family Medicine Geriatric Medicine
DX: K59.09 Other constipation (principal)
CPT/HCPCS: 74019

== ENCOUNTER → 2017-12-04 14:45 | Outpatient (CLI) | payer MEDICARE, OTHER, SELFPAY ==
[2017-12-04 17:21] LABS: Absolute Lymphocyte Count 1.49 X10^3/ul (0.83-4.51); Absolute Neutrophil Count 4.7 X10^3/uL (2.0-7.7); Basophil# 0.02 X10^3/uL; Basophil% 0.3 % (0-1); Eosinophil# 0.05 X10^3/uL; Eosinophils% 0.7 % (0-5); Hematocrit 40.1 % (40-54); Hemoglobin 13.8 g/dl (13.0-16.5); Lymphocyte # 1.49 X10^3/ul (4.0); Lymphocyte % 21.5 % (19-41); Mean Corp Hgb Conc 34.4 g/gl (32-36); Mean Corpuscular Hgb 33.5 pg (27.0-32.0); Mean Corpuscular Volume 97.3 fL (80-94); Mean Platelet Vol. 10.8 fl (6.2-12.0); Monocyte# 0.62 X10^3/uL; Neutrophil # 4.73 X10^3/uL (2.7-7.7); Neutrophil % 68.4 % (47-70); Platelet Count 268 K/mm3 (150-450); RBC Distribution Width CV 13.5 % (11.6-14.6); RBC Distribution Width SD 47.2 fl (35.1-43.9); Red Blood Count 4.12 M/mm3 (4.6-6.2); White Blood Count 6.9 K/mm3 (4.4-11.0)
[2017-12-04 17:30] LABS: POSITIVE COUNT NO; POSITIVE DIFFERENTIAL NO; POSITIVE MORPHOLOGY NO
[2017-12-04 17:34] LABS: ALB/GLOB Ratio 1.2 RATIO (0.9-2.4); AST(SGOT) 34 U/L (15-37); Alanine Aminotransfer ALT/SGPT 33 U/L (16-61); Albumin, Serum 4.4 g/dL (3.2-5.0); Alkaline Phosphatase 89 U/L (45-117); Anion Gap 9 (5-15); BUN 26 mg/dL (7-18); BUN/Creat Ratio 27.4 RATIO (10-20); Calcium,Total 8.6 mg/dL (8.5-10.1); Chloride 103 mmol/L (98-107); Creatinine, Serum 0.95 mg/dL (0.70-1.30); EST Glomerular Filtration Rate 81 mL/min (>60); Est Glom Filt Rate - Afr Amer 98 mL/min (>60); Globulin 3.6 g/dL (2.2-4.2); Glucose 88 mg/dL (74-106); Potassium 3.7 mmol/L (3.5-5.1); Sodium Level 139 mmol/L (136-145); Thyroid Stim Hormone (TSH) 1.23 uIU/mL (0.358-3.74)
[2017-12-06 10:27] LABS: Vitamin D,25 Hydroxy 13.7 ng/mL (19.95-100.01)
== END ==
PROVIDERS: Visit Provider Family Medicine Geriatric Medicine
DX: E55.9 Vitamin D deficiency, unspecified (principal); R53.83 Other fatigue; K59.09 Other constipation
CPT/HCPCS: 36415; 74019; 80053; 82306; 84443; 85025

== ENCOUNTER → 2018-05-29 09:16 | Outpatient (CLI) | payer MEDICARE, OTHER, SELFPAY ==
[2018-05-29 11:45] LABS: AST(SGOT) 26 U/L (15-37); Alanine Aminotransfer ALT/SGPT 29 U/L (16-61); Albumin, Serum 4.2 g/dL (3.2-5.0); Alkaline Phosphatase 91 U/L (45-117); Anion Gap 6 (5-15); BUN 16 mg/dL (7-18); BUN/Creat Ratio 15.1 RATIO (10-20); Calcium,Total 9.2 mg/dL (8.5-10.1); Chloride 104 mmol/L (98-107); Creatinine, Serum 1.06 mg/dL (0.70-1.30); EST Glomerular Filtration Rate 71 mL/min (>60); Est Glom Filt Rate - Afr Amer 86 mL/min (>60); Glucose 111 mg/dL (74-106); Potassium 4.2 mmol/L (3.5-5.1); Protein, Total 8.2 g/dL (6.4-8.2); Sodium Level 139 mmol/L (136-145)
[2018-05-29 14:08] LABS: Absolute Neutrophil Count 3.8 X10^3/uL (2.0-7.7); Basophil# 0.03 X10^3/uL; Basophil% 0.5 % (0-1); Eosinophil# 0.05 X10^3/uL; Eosinophils% 0.8 % (0-5); Hematocrit 43.1 % (40-54); Hemoglobin 14.2 g/dl (13.0-16.5); Lymphocyte % 26.1 % (19-41); Mean Corp Hgb Conc 32.9 g/gl (32-36); Mean Corpuscular Hgb 32.7 pg (27.0-32.0); Mean Corpuscular Volume 99.3 fL (80-94); Mean Platelet Vol. 11.3 fl (6.2-12.0); Monocyte# 0.64 X10^3/uL; Monocyte% 10.4 % (0-10); Neutrophil # 3.81 X10^3/uL (2.7-7.7); Neutrophil % 62.2 % (47-70); Platelet Count 263 K/mm3 (150-450); RBC Distribution Width CV 13.8 % (11.6-14.6); Red Blood Count 4.34 M/mm3 (4.6-6.2); White Blood Count 6.1 K/mm3 (4.4-11.0)
[2018-05-29 14:11] LABS: POSITIVE COUNT NO; POSITIVE DIFFERENTIAL NO; POSITIVE MORPHOLOGY NO
[2018-05-30 08:25] LABS: Vitamin B12 503 pg/mL (211-911); Vitamin D,25 Hydroxy 28.8 ng/mL (29.95-100.01)
== END ==
PROVIDERS: Family Provider Internal Medicine; PCP Internal Medicine; Visit Provider Internal Medicine
DX: K90.9 Intestinal malabsorption, unspecified (principal)
CPT/HCPCS: 36415; 80053; 82306; 82607; 85025

== ENCOUNTER → 2018-07-07 09:21 | Outpatient (CLI) | payer MEDICARE, OTHER, SELFPAY | PROVIDERS: Family Provider Internal Medicine; PCP Internal Medicine; Visit Provider Internal Medicine | DX: R10.9 Unspecified abdominal pain (principal) | CPT/HCPCS: 82274 ==

== ENCOUNTER → 2018-08-07 08:58 | Outpatient (CLI) | payer MEDICARE, OTHER, SELFPAY ==
--- NOTE | 2018-08-07 09:00 | US_ITS ---
STUDY: ABDOMINAL ULTRASOUND - RIGHT UPPER QUADRANT REASON FOR VISIT: Male, 82 years old. Right upper quadrant pain radiating to back x2 years TECHNIQUE: Ultrasound evaluation of the right upper quadrant was performed with real-time and static metz-scale imaging. TECHNICAL QUALITY: Limited. Examination limited by bowel gas. COMPARISON: None. FINDINGS: Liver: The liver measures 13.1 cm. There is normal echogenicity of the liver. The bile ducts are within normal limits. There is hepatic color flow. The direction of portal flow is hepatopetal. There is no demonstrated mass lesion. Gallbladder: Normal distended gallbladder. The gallbladder wall measures 3.9 mm. There is a negative sonographic Quezada's sign. There is no pericholecystic fluid. There are no gallstones. There are several small hyperechoic nonmobile foci of the gallbladder which may represent polyps. Common Bile Duct (C.B.D.): The common bile duct measures 3.2 mm. Pancreas: There is nonvisualization of the pancreas. Right Kidney: Normal size of the right kidney. The right kidney measures 9.1 x 4.7 x 4.3 cm. Normal renal cortex. The right cortex measures 1.3 cm. There is no demonstrated renal mass or cyst. There is no right hydronephrosis. US/Gallbladder IMPRESSION: Limited study secondary to excessive bowel gas artifact. Several small hyperechoic nonmobile foci along the gallbladder wall noted which may represent polyps. There is nonvisualization of the pancreas. Electronically Signed: Malachi Ferro MD at 19:03 EDT , Service support ,
== END ==
PROVIDERS: Family Provider Internal Medicine; PCP Internal Medicine; Referring Provider Surgery; Visit Provider Surgery
DX: R10.11 Right upper quadrant pain (principal)
CPT/HCPCS: 76705

== ENCOUNTER 2018-08-19 07:23 | Day surgery (SDC) | payer MEDICARE, OTHER, SELFPAY ==
--- NOTE | 2018-08-19 | IMM_PTH ---
PATIENT: SARAH WHALEY LOC: EN U#:[id number] AGE/SX: 82/M ROOM: RE08/19/[address]: Dr. Adolph Wilde MD : 1935 BED: DIS: 08/19/2018 SPEC #: [id number] RECD: 08/19/18 15:53 STATUS: AI REKeyon #: [id number] MAXIMINO: 08/19/18 00:[address]: Adolph Wilde DEPT: IMMUNOHISTOCHEMISTRY RECD BY: Bhumika Trimble ENTERED: 08/19/18 15:53 SP TYPE: IMMUNO OTHR DR: Dr. Abilio Valencia MD Tissues: Stomach, NOS Procedures: H Pylori (initial) PHYSICIAN & [place] [id number] SPECIMEN INFORMATION: Tissue Source: Antrum biopsy Clinical Info: RUQ pain Specimen Number: [id number] CPT code: 17014 METHODOLOGY: Deparaffinized sections of prefer/formalin-fixed tissue or PAP/DQ stained slides are incubated with monoclonal/polyclonal antibodies/oligonucleotide probes. Localization is made via biotin free immunoperoxidase method. Appropriate controls are performed and reacted as expected. Results on target cell population are indicated in the following table: RESULTS: ANTIBODY / CLONE RESULT H Pylori (polyclonal) negative These tests were developed and their performance characteristics determined by [facility]. They may not have been cleared or approved by the U.S. Food and Drug Administration. The FDA has determined that such clearance or approval is not necessary. INTERPRETATION: Antrum, biopsy: Negative for Helicobacter pylori organisms. SJ:juan luis 08/20/18
[2018-08-19 07:54] VITALS: BP 140/72; PULSE 80; RESP 16; TEMP 36.7; O2SAT 98; BMI 29.2
--- NOTE | 2018-08-19 08:30 | EGD_PTH ---
PATIENT: SARAH WHALEY LOC: EN U#:[id number] AGE/SX: 82/M ROOM: RE08/19/[address]: Dr. Adolph Wilde MD : 1935 BED: DIS: 08/19/2018 SPEC #: [id number] RECD: 08/19/18 12:22 STATUS: AI SHAYE #: [id number] MAXIMINO: 08/19/18 08:[address]: Adolph Wilde DEPT: SURGICAL PATHOLOGY RECD BY: Tequila North ENTERED: 08/19/18 12:47 SP TYPE: EGD BIOPSY OT DR: Dr. Abilio Valencia MD Tissues: Gastric mucous membrane Procedures: Surgery Specimen Level IV HEADER OPERATION: EGD ([facility] [place]) PRE-OP DIAGNOSIS: RUQ pain TISSUE SUBMITTED: Antrum biopsy for H. pylori and path MICROSCOPIC DIAGNOSIS Gastric antrum, biopsy: Chronic gastritis, mild to moderate. AM:juan luis 08/20/18 COMMENT The results of immunohistochemistry for Helicobacter pylori will be reported separately ([id number]). MICROSCOPIC DESCRIPTION Slides are reviewed. GROSS DESCRIPTION Received in fixative is one container labeled with the patient's name and designated antrum biopsy for H. pylori and path. The specimen consists of multiple irregular fragments of light elizabeth soft tissue that in aggregate measure 0.8 x 0.3 x 0.1 cm. The specimen is totally submitted in one cassette. / SJ:juan luis 08/19/18 TC:3 CPT: 18262
[2018-08-19 09:01] VITALS: BP 102/52; BP 140/72; PULSE 63; RESP 16; TEMP 36.8; O2SAT 97
[2018-08-19 09:06] VITALS: BP 108/57; BP 140/72; PULSE 61; RESP 16; O2SAT 97
--- NOTE | 2018-08-19 09:08 | OP.ENDO_ITS ---
Patient Name: Bret Rivera Procedure Date: 08/19/2018 8:49 AM Date of : 1935 Age: 82 Procedure: Upper GI endoscopy Indications: Abdominal pain in the right upper quadrant Providers: Adolph Wilde MD Referring MD: Adolph Wilde MD Medicines: Monitored Anesthesia Care Patient Profile: This is an 82 year old male. Refer to note in patient chart for documentation of history and physical. Complications: No immediate complications. Estimated blood loss: Minimal. Procedure: Pre-Anesthesia Assessment: - Prior to the procedure, a History and Physical was performed, and patient medications and allergies were reviewed. The patient's tolerance of previous anesthesia was also reviewed. The risks and benefits of the procedure and the sedation options and risks were discussed with the patient. All questions were answered, and informed consent was obtained. Prior Anticoagulants: The patient has taken aspirin, last dose was 5 days prior to procedure. After reviewing the risks and benefits, the patient was deemed in satisfactory condition to undergo the procedure. After obtaining informed consent, the endoscope was passed under direct vision. Throughout the procedure, the patient's blood pressure, pulse, and oxygen saturations were monitored continuously. The gastroscope was introduced through the mouth, and advanced to the second part of duodenum. The upper GI endoscopy was accomplished without difficulty. The patient tolerated the procedure well. Scope In: 8:52:55 AM Scope Out: 8:57:38 AM Total Procedure Duration Time 0 hours 4 minutes 43 seconds Findings: Localized mild inflammation characterized by linear erosions was found in the cardia. The exam was otherwise without abnormality. Biopsies were taken with a cold forceps in the gastric antrum for Helicobacter pylori testing. The esophagus was normal. Impression: - Gastritis. - The examination was otherwise normal. - Normal esophagus. - Biopsies were taken with a cold forceps for Helicobacter pylori testing. Recommendation: - Patient has a contact number available for emergencies. The signs and symptoms of potential delayed complications were discussed with the patient. Return to normal activities tomorrow. Written discharge instructions were provided to the patient. - Resume previous diet. - Continue present medications. - Await pathology results. - Resume aspirin at prior dose tomorrow. - Return to my office in 1 month. - Use sucralfate suspension 1 gram PO QID for 1 month. Procedure Code(s): --- Professional --- 30880, Esophagogastroduodenoscopy, flexible, transoral; with biopsy, single or multiple Diagnosis Code(s): --- Professional --- K29.70, Gastritis, unspecified, without bleeding R10.11, Right upper quadrant pain CPT copyright 2017 [employer]. All rights reserved. The codes documented in this report are preliminary and upon pyrometer operator review may be revised to meet current compliance requirements. Adolph Wilde MD 08/19/2018 9:07:51 AM This report has been signed electronically. Number of Addenda: 0 Note Initiated On: 08/19/2018 8:49 AM
[2018-08-19 09:11] VITALS: BP 114/59; BP 140/72; PULSE 61; RESP 16; O2SAT 97
[2018-08-19 09:16] VITALS: BP 110/60; BP 140/72; PULSE 62; RESP 16; TEMP 36.8; O2SAT 100
[2018-08-19 09:40] VITALS: BP 140/72
== END 2018-08-19 09:40 | disposition home or self-care (01) ==
LOC: EN 07:23 → AC 07:24
PROVIDERS: Family Provider Internal Medicine; PCP Internal Medicine; Referring Provider Surgery; Visit Provider Surgery
PROC: 0DJ08ZZ Inspection of Upper Intestinal Tract, Via Natural or Artificial Opening Endoscopic (ICD-10-PCS; CPT 43235; principal; 2018-08-19 08:25)
DX: K29.50 Unspecified chronic gastritis without bleeding (principal); K58.1 Irritable bowel syndrome with constipation; K21.9 Gastro-esophageal reflux disease without esophagitis; Z79.82 Long term (current) use of aspirin; Z79.899 Other long term (current) drug therapy
CPT/HCPCS: 43239; 88305; 88342; J7120

== ENCOUNTER 2018-09-24 12:15 | Day surgery (SDC) | payer MEDICARE, OTHER, SELFPAY ==
[2018-09-17 09:25] VITALS: BMI 28.9
[2018-09-24] VITALS (9 sets, daily range): BP systolic 148–196; BP diastolic 85–96; PULSE 70–96; RESP 16–18; TEMP 36.4–37; O2SAT 92–100; BMI 29.8
--- NOTE | 2018-09-24 12:41 | EKG12_ITS ---
Test Reason : PREOP Blood Pressure : / mmHG Vent. Rate : 086 BPM Atrial Rate : 074 BPM P-R Int : 214 ms QRS Dur : 088 ms QT Int : 386 ms P-R-T Axes : 030 -12 062 degrees QTc Int : 461 ms Sinus rhythm with 1st degree A-V block with frequent and consecutive Premature ventricular complexes Abnormal ECG When compared with ECG of 20-NOV-2017 05:29, Premature ventricular complexes are now Present Confirmed by ZACKARY JAFFE, PORFIRIO ([id number]), content editor NAGA RANDHAWA ([id number]) on 09/26/2018 11:27:54 AM Referred By: Adolph Wilde Confirmed By:PORFIRIO RAYMUNDO MD
[2018-09-24 12:50] LABS: Hematocrit 42.2 % (40-54); Hemoglobin 14.3 g/dl (13.0-16.5); Mean Corp Hgb Conc 33.9 g/gl (32-36); Mean Corpuscular Hgb 32.7 pg (27.0-32.0); Mean Corpuscular Volume 96.6 fL (80-94); Platelet Count 252 K/mm3 (150-450); RBC Distribution Width CV 13.4 % (11.6-14.6); RBC Distribution Width SD 47.5 fl (35.1-43.9); Red Blood Count 4.37 M/mm3 (4.6-6.2)
[2018-09-24 12:52] LABS: Scan Indicated on CBC? Y/N NO
[2018-09-24 13:07] LABS: International Normalized Ratio 1.2; Partial Thromboplast Time 40.2 Seconds (24.1-36.2); Prothrombin Time (Protime)PT. 14.7 SECONDS (11.7-14.9)
[2018-09-24 13:15] LABS: AST(SGOT) 19 U/L (15-37); Alanine Aminotransfer ALT/SGPT 28 U/L (16-61); Albumin, Serum 4.3 g/dL (3.2-5.0); Alkaline Phosphatase 104 U/L (45-117); Bilirubin, Direct 0.17 mg/dL (0.00-0.30); Globulin 3.8 g/dL (2.2-4.2); Protein, Total 8.1 g/dL (6.4-8.2)
--- NOTE | 2018-09-24 14:35 | GALL_PTH ---
PATIENT: SARAH WHALEY LOC: [facility] [place] U#:[id number] AGE/SX: 83/M ROOM: RE09/24/[address]: Dr. Adolph Wilde MD : 1935 BED: DIS: 09/24/2018 SPEC #: [id number] RECD: 09/24/18 16:23 STATUS: AI SHAYE #: [id number] MAXIMINO: 09/24/18 14:[address]: Adolph Wilde DEPT: SURGICAL PATHOLOGY RECD BY: Nemesio Greene ENTERED: 09/25/18 11:23 SP TYPE: SHIRA VARELA DR: Dr. Abilio Valencia MD Tissues: Gallbladder, NOS Procedures: Surgery Specimen Level III HEADER OPERATION: Laparoscopic cholecystectomy with IOC PRE-OP DIAGNOSIS: Biliary colic TISSUE SUBMITTED: Gallbladder MICROSCOPIC DIAGNOSIS Gallbladder: Chronic cholecystitis and cholesterolosis. No stones are identified in the container or in the gallbladder. SJ:juan luis 09/26/18 MICROSCOPIC DESCRIPTION Slides are reviewed. GROSS DESCRIPTION Received is one container labeled with the patient's name and designated gallbladder. The specimen consists of a gallbladder measuring 8 cm in length and up to 4 cm in diameter. The external surface is pink-elizabeth, smooth and glistening for the most part. Focally it is granular, hemorrhagic and contains cautery artifact. The gallbladder contains green-yellow mucoid bile. No stones are identified in the container or in the gallbladder. The mucosa is bile-stained and without any mass lesions. The gallbladder wall measures up to 0.5 cm in thickness. A focal area of increased subserosal fat is noted. Office Inspector sections from the gallbladder and the cystic duct are submitted in one cassette. / SJ:juan luis 09/25/18 TC:3 [facility]: [id number]
--- NOTE | 2018-09-24 14:49 | RAD_ITS ---
CLINICAL HISTORY: Male, 83 years old. Cholecystectomy PROCEDURE: CHOLANGIOGRAM - intraoperative CONSENT: Obtained Placement of the catheter and the procedure were performed by: Dr. Wilde Fluoroscopy was provided by Sarmad Garcia, who was present in the room time of the procedure. TECHNIQUE: (All elements of maximal sterile barrier technique followed, including US elements as applicable) After removal of the gallbladder, the cystic duct was cannulized, and contrast injected into the biliary tree in a retrograde manner. There is normal distention of the biliary tree with normal flow of contrast into the duodenum. There is no extravasation of contrast outside the lumen of the biliary tree. RAD/Cholangiogram/ O R,Initial IMPRESSION: Normal intraoperative cholangiogram Electronically Signed: Joe Iraheta MD at 16:17 EST , Service support ,
[2018-09-24] MEDS: Bupiv/Epi 0.5% Mpf 30 ML Vial (15:15)
--- NOTE | 2018-09-24 15:33 | PCM.OPRPT ---
Problem List (1) Chronic cholecystitis Status: Chronic Report of Operation Date of Procedure: 09/24/18 Pre-Operative Diagnosis: Biliary colic and chronic cholecystitis Post-Operative Diagnosis: Same Surgery/Procedure Performed:: Laparoscopic cholecystectomy with intraoperative cholangiogram Description of Surgical Findings:: Inflamed gallbladder Specimen's removed: Gallbladder and contents Description of Procedure: After obtaining informed consent patient was brought back to the operating room. General anesthesia was induced. The abdomen was prepped and draped in usual sterile fashion. A small midline incision was made superior to the umbilicus and deepened to the level of fascia. The fascia was elevated and incised. Next the peritoneum was elevated and incised in the same fashion. Finger sweep was performed and the Ramírez trocar was placed into the abdomen. The balloon was inflated. The abdomen was inflated to 15 mmHg. Next a camera was introduced into the abdomen and the abdomen was inspected. Next under direct visualization three 5-mm ports were placed one subxiphoid and 2 subcostal. The gallbladder appeared inflamed. Next the gallbladder was elevated and retracted toward the right shoulder. The peritoneum was stripped from the gallbladder. The infundibulum was located and retracted laterally. Next the triangle of Calot was dissected and the cystic duct and cystic artery were identified. Cholangiograms were performed. The Cooney catheter was used to clamp across the infundibulum and the needle was inserted into the gallbladder. Under fluoroscopy contrast was instilled into the gallbladder and the common duct, cystic duct as well as proximal hepatic ducts were identified. There was good filling of the duodenum. There were no filling defects noted in the common bile duct. The clamp was removed as well as the needle and the infundibulum was grasped once more. Three hemolock clips were placed across the cystic duct. The cystic duct was then divided leaving 2 clips on the stump. The cystic artery was clipped and divided in the same fashion. The hook cautery was then used to take the gallbladder off of the gallbladder bed. Hemostasis was obtained. Gallbladder fossa was irrigated and no active bleeding or bile leakage was noted. Next the camera switched to a 5 mm camera and introduced in the subxiphoid port. An Endopouch bag was placed through the umbilical port and the gallbladder was placed into it. The gallbladder was then removed through the umbilical incision. The camera was then reinserted through the umbilical port. The gallbladder fossa was inspected once more and noted to be hemostatic with no leaking bile. The abdomen was suctioned dry the 5 mm ports were removed under direct visualization. The umbilical port was then removed and the air was removed from the abdomen. Next using an 0 Vicryl suture the umbilical fascia was closed in a slumdi-[id number] fashion. The umbilical port site was irrigated local anesthetic was administered to all the incisions. All the incisions were closed subcuticular 4-0 Monocryl sutures followed by Steri-Strips and dressings. The patient was awoken and taken to PACU in stable condition. - Admit VTE Documentation VTE Mechan Device Prophylaxis: SCD's
--- NOTE | 2018-09-24 15:35 | DCINST_ITS ---
Discharge Diet: Light diet - advance as tolerated Discharge Activity: Return to Normal Activity, May Not Drive - for 2-3 days or while taking narcotic pain medicataions., - - Do not drive, work heavy equipment or sign legal documents for 24 hours. May shower in (days): 1 - with the bandage in place. Additional Activity Instructions:: Pain medication may cause nausea. You should typically eat light foods as you take your pain medications. Pain medication may also cause constipation. If this is a problem for you, please discuss with your doctor. Call your doctor if your incision/area has: Continuous Slow Oozing, Sudden Increased Bleeding, Increased Pain/ Swelling, Increased Redness, Foul Smelling Discharge, Fever of 101 or Higher Call your doctor if you observe: Fever of 101 or Higher Suture Line Care: Avoid Pulling/Pushing, Avoid Pinching/Bending Additional Dressing/Incision Instructions:: Leave operative bandaids on for 2 days. When you remove dressing, leave Steri-Strips on until your follow-up appointment, or until the Steri-Strips fall off on their own. Allergies/Adverse Reactions: Allergies gluten Adverse Reaction (Verified 09/23/18 08:06) Other celiac's disease Medications to take at Discharge Aspirin [Aspirin, Baby] 81 mg PO DAILY@0800 #0 tab.chew 11/20/17 omeprazole 40 mg capsule,delayed release 40 mg PO QAM #90 cap 07/29/18 Cholecalciferol (VIT D3) [Vitamin D] 1,000 unit PO DAILY 08/18/18 Cholecalciferol (Vitamin D3) [Vitamin D3] 50,000 unit PO QMONTH 08/18/18 Polyethylene Glycol 3350 [Miralax] 17 gm PO DAILY 08/18/18 Hydrocodone Bitart/Apap 5-325 [[place] 5MG-325MG] 1 - 2 tablet PO Q6H PRN PRN 4 Days #20 tablet 09/24/18 The following prescriptions were given: Hydrocodone Bitart/Apap 5-325 [[place] 5MG-325MG] 1 - 2 tablet PO Q6H PRN PRN 4 Days #20 tablet PRN Reason: Pain Orders to be completed after discharge: 12 Lead EKG [[facility]] Time Frame: 09/24/18, Location: None Selected Primary Care Physician: Abilio Valencia MD [Primary Care Provider] - Test Results: Test results from this visit will be discussed in further detail at your follow- up appointment, if applicable. Please Follow Up With: Adolph Wilde MD When: Please call to schedule 2 week follow up appointment. [phone]
[2018-09-24] MEDS: HYDROcodone Bitartrate/Apap 5/325 Tablet PO (17:28)
--- OUTSIDE RECORDS SUMMARY | 2018-11-10 15:43 | XMS RPT_ITS ---
:1935 Author Organization [place] Support Name Relationship Address Phone JUDDDOUGHY Unavailable [address] + [place] [address] DM WHALEY Unavailable [address] + [place] [address] R Unavailable Unavailable Unavailable DRAGAN WHALEY Unavailable [address] + [place] [address] DM WHALEY Unavailable [address] + [place] [address] R Unavailable Unavailable Unavailable DRAGAN WHALEY Unavailable [address] + [place] [address] DM WHALEY Unavailable [address] + [place] [address] R Unavailable Unavailable Unavailable DRAGAN WHALEY Unavailable [address] + [place] [address] DM WHALEY Unavailable [address] + [place] [address] R Unavailable Unavailable Unavailable DRAGAN WHALEY Unavailable [address] + [place] [address] DM WHALEY Unavailable [address] + [place] [address] R Unavailable Unavailable Unavailable DRAGAN WHALEY Unavailable [address] + [place] [address] DM WHALEY Unavailable [address] + [place] [address] R Unavailable Unavailable Unavailable DRAGAN WHALEY Unavailable [address] + [place] [address] DM WHALEY Unavailable [address] + [place] [address] R Unavailable Unavailable Unavailable DRAGAN WHALEY Unavailable [address] + [place] [address] DM WHALEY Unavailable [address] + [place] [address] R Unavailable Unavailable Unavailable DRAGAN WHALEY Unavailable [address] + [place] [address] DM WHALEY Unavailable [address] + [place] [address] R Unavailable Unavailable Unavailable DRAGAN WHALEY Unavailable [address] + [place] [address] DM WHALEY Unavailable [address] + [place] [address] R Unavailable Unavailable Unavailable DRAGAN WHALEY Unavailable [address] + [place] [address] DM WHALEY Unavailable [address] + [place] [address] R Unavailable Unavailable Unavailable DRAGAN WHALEY Unavailable [address] + [place] [address] DM WHALEY Unavailable [address] + [place] [address] R Unavailable Unavailable Unavailable DRAGAN WHALEY Unavailable [address] + [place] [address] DM WHALEY Unavailable [address] + [place] [address] R Unavailable Unavailable Unavailable DRAGAN WHALEY Unavailable [address] + [place] [address] DM WHALEY Unavailable [address] + [place] [address] R Unavailable Unavailable Unavailable DRAGAN WHALEY Unavailable [address] + [place] [address] DM WHALEY Unavailable [address] + [place] [address] R Unavailable Unavailable Unavailable DRAGAN WHALEY Unavailable [address] + [place] [address] DM WHALEY Unavailable [address] + [place] [address] R Unavailable Unavailable Unavailable DRAGAN WHALEY Unavailable [address] + [place] [address] DM WHALEY Unavailable [address] + [place] [address] R Unavailable Unavailable Unavailable DRAGAN WHALEY Unavailable [address] + [place] [address] DM WHALEY Unavailable [address] + [place] [address] R Unavailable Unavailable Unavailable DRAGAN WHALEY Unavailable [address] + [place] [address] DM WHALEY Unavailable [address] + [place] [address] R Unavailable Unavailable Unavailable DRAGAN WHALEY Unavailable [address] + [place] [address] DM WHALEY Unavailable [address] + [place] [address] R Unavailable Unavailable Unavailable DRAGAN WHALEY Unavailable [address] + [place] [address] DM WHALEY Unavailable [address] + [place] [address] R Unavailable Unavailable Unavailable DRAGAN WHALEY Unavailable [address] + [place] [address] DM WHALEY Unavailable [address] + [place] [address] R Unavailable Unavailable Unavailable DRAGAN WHALEY Unavailable [address] + [place] [address] DM WHALEY Unavailable [address] + [place] [address] R Unavailable Unavailable Unavailable DRAGAN WHALEY Unavailable [address] + [place] [address] DM WHALEY Unavailable [address] + [place] [address] R Unavailable Unavailable Unavailable DRAGAN WHALEY Unavailable [address] + [place] [address] DM WHALEY Unavailable [address] + [place] [address] R Unavailable Unavailable Unavailable Care Team Providers Name Role Phone Adolph Wilde Attending Unavailable Adolph Wilde Referring Unavailable Oleghe, Efewongbe Primary Care Unavailable Adolph Wilde Consulting Unavailable Oleghe, Efewongbe Attending Unavailable Oleghe, Efewongbe Referring Unavailable Ronald Taylor Attending Unavailable Adolph Wilde Referring Unavailable Adolph Wilde Attending Unavailable Oleghe, Efewongbe Referring Unavailable Bursley, Al Primary Care Unavailable Tereletsky, Joshua Admitting Unavailable Paintsil, [place] Attending Unavailable Tereletsky, Joshua Admitting Unavailable Tereletsky Joshua Attending Unavailable Bursley, Al Primary Care Unavailable Tereletsky Joshua Consulting Unavailable Tereletsky, Joshua Admitting Unavailable Paint[place], [place] Attending Unavailable Bursley, Al Primary Care Unavailable Paintsil, [place] Consulting Unavailable Ricardo, Yosvany Chi Attending Unavailable Bursley, Al Primary Care Unavailable Ricardo, Yosvany Chi Attending Unavailable Fortino Lew Attending Unavailable Tereletsky, Joshua Referring Unavailable Joshua Crain DISPATCH CLERK-C Attending Unavailable Bursley, Al Primary Care Unavailable Oleghe, Efewongbe Referring Unavailable Oleghe, Efewongbe Attending Unavailable Oleghe, Efewongbe Referring Unavailable Oleghe, Efewongbe Attending Unavailable Oleghe, Efewongbe Referring Unavailable Bursley, Al Primary Care Unavailable Adolph Wilde Attending Unavailable Oleghe, Efewongbe Referring Unavailable [place]ursley, Al Primary Care Unavailable Oleghe, Efewongbe Attending Unavailable Oleghe, Efewongbe Referring Unavailable [place]ursley, Al Primary Care Unavailable Oleghe, Efew[place]be Attending Unavailable Oleghe, Efew[place]be Referring Unavailable Oleghe, Efewongbe Primary Care Unavailable Oleghe, Efew[place]be Attending Unavailable Oleghe, Efew[place]be Referring Unavailable Oleghe, Efewongbe Primary Care Unavailable Oleghe, Efew[place]be Attending Unavailable Oleghe, Efewongbe Referring Unavailable Oleghe, Efewongbe Primary Care Unavailable Oleghe, Efewongbe Attending Unavailable Oleghe, Efewongbe Referring Unavailable Calabretta, Adolph Attending Unavailable Oleghe, Efewongbe Referring Unavailable Calabretta, Adolph Attending Unavailable Calab[place]ta, Adolph Referring Unavailable Oleghe, Efewongbe Primary Care Unavailable [place], Adolph Attending Unavailable Calab[place], Adolph Referring Unavailable Oleghe, Efewongbe Primary Care Unavailable Calab[place]ta, Adolph Attending Unavailable [place], Adolph Attending Unavailable Oleghe, Efewongbe Referring Unavailable [place]ab[place], Adolph Attending Unavailable [place], Adolph Referring Unavailable Oleghe, Efewongbe Primary Care Unavailable PROBLEMS PROBLEMS DATE TYPE CONDITION / CODE ATTENDING STATUS SOURCE 10/28/2018 Unknown I10 - Essential Oleghe, Active [place] (primary) hypertension [facility] / I10(ICD-10) Hospital Repository 10/08/2018 Unknown R94.31 - Abnormal Claudia, [place] Active [facility] electrocardiogram Community [ECG] [EKG] / Hospital R94.31(ICD-10) Repository 09/24/2018 Unknown K80.64 - Calculus of [place], Active [facility] gallbladder and bile [facility] duct with chronic Hospital cholecystitis without Repository obstruction / K80.64(ICD-10) 2018 Unknown K80.50 - Calculus of [place], Active [facility] bile duct without [facility] cholangitis or Hospital cholecystitis without Repository obstruction / K80.50(ICD-10) 09/02/2018 Unknown K21.9 - [place], Active [facility] Gastro-esophageal [facility] reflux disease without Hospital esophagitis / Repository K21.9(ICD-10) 09/02/2018 Unknown R10.11 - Right upper [place], Active [facility] quadrant pain / [facility] R10.11(ICD-10) Hospital Repository 09/02/2018 Unknown K29.50 - Unspecified [place], Active [place] [facility] K29.50(ICD-10) Repository 07/29/2018 Unknown R10.9 - Unspecified Oleghe, Active [facility] abdominal pain / [facility] R10.9(ICD-10) Hospital Repository 05/26/2018 Unknown K90.9 - Intestinal Oleghe, Active [facility] malabsorption, [place] Community unspecified / Hospital K90.9(ICD-10) Repository 01/08/2018 Unknown K59.09 - Other Crain, Joshua Active [facility] constipation / DISPATCH CLERK-C Community K59.09(ICD-10) Hospital Repository 12/04/2017 Unknown E55.9 - Vitamin D Ricardo, Yosvany Chi Active [facility] deficiency, Community unspecified / Hospital E55.9(ICD-10) Repository 12/04/2017 Unknown R53.83 - Other fatigue Ricardo, Yosvany Chi Active [facility] / R53.83(ICD-10) [facility] Hospital Repository 12/23/2017 Unknown R07.9 - Chest pain, [place], Active [facility] unspecified / [facility] R07.9(ICD-10) Hospital Repository PROCEDURES PROCEDURES No Procedure Records FoundRESULTS RESULTS INTERNAL MEDICINE Observed: 10/28/2018 Status: F Source: [place] OFFICE VISIT 4:48 PM [facility] REPOSIT[facility] [address] [place] [address] [address] [place] [address] OFFICE VISIT Date of Service: 10/28/18 MR#: [id number] Acct: [id number] Name: BRET WHALEY Rep #: [id number] : 1935 Provider: Abilio Valencia MD Age/Sex: 83/M Location: [facility] [place] Status: Signed Intake Vital Signs10/28/18 Body Mass Index (BMI) 29.8 10/28/18 Height 5 ft 7 in 10/28/18 Weight: 184 lb 10/28/18 Body Mass Index (BMI) 28.8 10/28/18 Blood Pressure 137/74 H Intake Visit Reasons: 1 MO FU Chief Complaint: 1 Mo follow-up visit Is patient in pain?: No Allergies gluten Adverse Reaction (Verified 10/28/18 09:57) Other Medications Aspirin [Aspirin, Baby] 81 mg PO DAILY@0800 #0 tab.chew 11/20/17 [Rx Confirmed 10/28/18] omeprazole 40 mg capsule,delayed release 40 mg PO QAM #90 cap 07/29/18 [Rx Confirmed 10/28/18] Cholecalciferol (VIT D3) [Vitamin D] 1,000 unit PO DAILY 08/18/18 [History Confirmed 10/28/18] Polyethylene Glycol 3350 [Miralax] 17 gm PO DAILY 08/18/18 [History Confirmed 10/28/18] amlodipine 10 mg tablet 10 mg PO DAILY #90 tab 10/28/18 [Rx Confirmed 10/28/18] cholecalciferol (vitamin D3) 50,000 unit capsule 50,000 unit PO QMONTH #12 cap 10/28/18 [Rx Confirmed 10/28/18] PFSH Medical History Chronic cholecystitis (Chronic) Hypertension (Chronic) Borderline hypertension (Chronic) Elevated blood-pressure reading without diagnosis of hypertension (Acute) Abdominal pain (Chronic) Malabsorption (Chronic) Chronic constipation (Chronic) Diverticulitis (Chronic) Celiac disease (Chronic) IBS (irritable bowel syndrome) (Chronic) Spinal stenosis (Chronic) Carpal tunnel syndrome (Acute) Chronic cholecystitis (Chronic) Surgical History History of appendectomy (Acute) History of back surgery (Acute) History of carpal tunnel surgery (Acute) History of cataract surgery (Acute) History of cholecystectomy (Acute) Family History Brother Heart disease Unknown Celiac disease Social History Smoking Status: Never smoker alcohol intake: never substance use type: does not use 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 He was seen about a month ago and started on amlodipine due to poorly controlled blood pressure. His blood pressure is better however, not optimal. He denies any concerns with the medication. ROS Const Constitutional: No chills, fatigue, fever(s), frequent falls, malaise, weakness, sleep problems or change in appetite Eyes Eyes: No blurry vision, change in vision, double vision, discharge or visual disturbances ENT ENT: No abnormal hearing, ear pain, ear pressure, tinnitus or dizziness/vertigo Resp Respiratory: No cough, shortness of breath or wheezing Cardio Cardiology: No chest pain at rest, chest pain with exertion, shortness of breath, dyspnea on exertion, generalized swelling, irregular heart rhythm, lightheadedness, orthopnea, fast heart rate or palpitations Gastro GI: No abdominal pain, change in bowel habits, constipation, diarrhea, nausea/dyspepsia or vomiting Genitourinary Male: No difficulty urinating, burning urination, painful urination, urinary incontinence, urinary frequency, urinary urgency, urinary hesitancy, urinary retention, blood in urine, Frequent nighttime urination/ nocturia, sexual problems, testicle lump or testicle pain Musc Musculoskeletal: No joint pain, joint swelling, limited range of motion, numbness or tingling Skin Skin: No change in skin color, itching, rash or wounds Breast Breast: No breast lump or breast pain Neuro Neurology: No frequent falls, weakness, visual disturbances, abnormal hearing, numbness, tingling, unsteady gait/balance, dizziness, loss of vision or memory loss Psych Psychiatric: No change in appetite, No memory loss, No anxiety, No depression, No Thoughts of harming yourself/Others Endo Endocrine: No fatigue, heat intolerance, increased thirst/drinking, increased hunger or increased urination Aller/Imm Allergy/Immunologic: No wheezing, itchy eyes or seasonal allergy symptoms Ganesh/Lymp Hematologic/Lymphatic: No easy bleeding, easy bruising or enlarged lymph nodes Exam Const General: cooperative, no acute distress Orientation: alert, awake, oriented x3 [facility]: atraumatic, normocephalic Ears: hearing grossly normal bilaterally Resp Effort AND Inspection: normal respiratory effort, able to speak in complete sentences Auscultation: Bilateral: Clear to Auscultation Cardio Rate: regular rate Rhythm: regular rhythm Heart Sounds: S1 normal, S2 normal GI Palpation: soft, no hepatosplenomegaly Other: Neuro General: alert, awake, oriented x3, moves all extremities, CN's II-XI intact bilaterally Extrem General: no clubbing, cyanosis or edema Psych Appearance: grossly normal Mental Status: mental status grossly normal Affect: normal affect Assessment AND Plan 1. Hypertension I10 Plan Better controlled, however not optimal. Increase amlodipine to 10 mg daily. Continue lifestyle and dietary modifications. Follow-up in 3 months. Orders Orders: 2. Vitamin D deficiency E55.9 Plan Stable. Continue 50,000 units monthly. We will follow. 3. Chronic constipation K59.09 Plan No concerns at this time. He denies blood in his stool. Will monitor. This note was generated with [employer] software. It may contain incorrect words, spelling, and punctuation that were not noted in checking the note before signing. Plan Detail Other Medications New: Changed: Coding Level of Care Code Off vis,est,level 3 Diagnoses Hypertension I10 Vitamin D deficiency E55.9 Chronic constipation K59.09 10/28/18 1648 <Electronically signed by Abilio Valencia MD> Date Abilio Valencia MD Cosigner Signature: Date (if applicable) CC: SURGERY VISIT REPORT Observed: 10/09/2018 Status: F Source: [place] 3:22 PM [facility] [address] [place] [address] [address] [place] [address] OFFICE VISIT Date of Service: 10/09/18 MR#: [id number] Acct: [id number] Name: BRET WHALEY Rep #: [id number] : 1935 Provider: Adolph Wilde MD Age/Sex: 83/M Location: 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 Is patient in pain?: No Allergies gluten Adverse Reaction (Verified 10/09/18 13:30) Other Medications Aspirin [Aspirin, Baby] 81 mg PO DAILY@0800 #0 tab.chew 11/20/17 [Rx Confirmed 10/09/18] omeprazole 40 mg capsule,delayed release 40 mg PO QAM #90 cap 07/29/18 [Rx Confirmed 10/09/18] Cholecalciferol (VIT D3) [Vitamin D] 1,000 unit PO DAILY 08/18/18 [History Confirmed 10/09/18] Cholecalciferol (Vitamin D3) [Vitamin D3] 50,000 unit PO QMONTH 08/18/18 [History Confirmed 10/09/18] Polyethylene Glycol 3350 [Miralax] 17 gm PO DAILY 08/18/18 [History Confirmed 10/09/18] amlodipine 5 mg tablet 5 mg PO DAILY #30 tab 09/29/18 [Rx Confirmed 10/09/18] Subjective Details: Patient is doing well after laparoscopic cholecystectomy. He reports the pain in his right upper quadrant that radiates to his back is gone. Objective Details: Patient's abdomen is soft and nontender and nondistended. Incisions are healing well. Assessment AND Plan Plan 1. Patient is doing well after laparoscopic cholecystectomy. He appears to be having much less pain in his right upper quadrant but he does say that some foods do give him diarrhea and indigestion. 2. Follow-up as needed Adolph Wilde MD Pager: [facility] [address] [place] [address] [address] [place] [address] Office: Coding Level of Care Code Global Post Op 10/09/18 1522 <Electronically signed by Adolph Wilde MD> Date Adolph Wilde MD Cosign Signature: Date (if applicable) CC: Abilio Valencia MD INTERNAL MEDICINE Observed: 10/01/2018 Status: F Source: [place] OFFICE VISIT 4:59 PM [facility] [address] [place] [address] OFFICE VISIT Date of Service: 09/29/18 MR#: [id number] Acct: [id number] Name: BRET WHALEY Rep #: [id number] : 1935 Provider: Abilio Valencia MD Age/Sex: 83/M Location: [facility] Status: Signed Intake Vital Signs09/29/18 Body Mass Index (BMI) 29.8 09/29/18 Height 5 ft 7 in Intake Visit Reasons: 2 MO FU Chief Complaint: follow-up visit Is patient in pain?: Yes (headache) Pain scale (1-10): 6 Allergies gluten Adverse Reaction (Verified 09/23/18 08:06) Other Medications Aspirin [Aspirin, Baby] 81 mg PO DAILY@0800 #0 tab.chew 11/20/17 [Rx Confirmed 09/24/18] omeprazole 40 mg capsule,delayed release 40 mg PO QAM #90 cap 07/29/18 [Rx Confirmed 09/24/18] Cholecalciferol (VIT D3) [Vitamin D] 1,000 unit PO DAILY 08/18/18 [History Confirmed 09/24/18] Cholecalciferol (Vitamin D3) [Vitamin D3] 50,000 unit PO QMONTH 08/18/18 [History Confirmed 09/24/18] Polyethylene Glycol 3350 [Miralax] 17 gm PO DAILY 08/18/18 [History Confirmed 09/24/18] amlodipine 5 mg tablet 5 mg PO DAILY #30 tab 09/29/18 [Rx Confirmed 09/29/18] PFSH Medical History Chronic constipation (Chronic) Diverticulitis (Chronic) Celiac disease (Chronic) IBS (irritable bowel syndrome) (Chronic) Spinal stenosis (Chronic) Carpal tunnel syndrome (Acute) Surgical History History of appendectomy (Acute) History of back surgery (Acute) History of carpal tunnel surgery (Acute) History of cataract surgery (Acute) History of cholecystectomy (Acute) Family History Brother Heart disease Unknown Celiac disease Social History Smoking Status: Never smoker alcohol intake: never substance use type: does not use 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 Has been seen for persistent abdominal pain and was subsequently referred to general surgery. 5 days ago, he had a laparoscopic cholecystectomy. He has done well since surgery. Due to pain medication, he has noted some constipation. He feels well otherwise. Blood pressure has continued to remain elevated. Also noted to have significant elevations during his hospital stay. He is concerned about a lingering dull headache. ROS Const Constitutional: Positive for headache(s) (becoming more frequent); no body ache, chills, weakness or fever(s) Eyes Eyes: No blurry vision, change in vision, eye pain or discharge ENT ENT: Positive for headache(s) (becoming more frequent); no abnormal hearing, ear pain, ear pressure, tinnitus, dizziness/vertigo or balance problems Resp Respiratory: No cough, shortness of breath or wheezing Cardio Cardiology: No chest pain at rest, shortness of breath, dyspnea on exertion or palpitations Gastro GI: Positive for constipation; no abdominal pain or bloating Neuro Neurology: Positive for headache(s) (becoming more frequent); no weakness or abnormal hearing Aller/Imm Allergy/Immunologic: No wheezing Exam Const General: cooperative, no acute distress Orientation: alert, awake, oriented x3 HENMT Head: atraumatic, normocephalic Ears: hearing grossly normal bilaterally Resp Effort AND Inspection: normal respiratory effort, able to speak in complete sentences Auscultation: Bilateral: Clear to Auscultation Cardio Rate: regular rate Rhythm: regular rhythm Heart Sounds: S1 normal, S2 normal GI Palpation: soft, no hepatosplenomegaly Other: Surgical site clean and dry. Neuro General: alert, awake, oriented x3, moves all extremities, CN's II-XI intact bilaterally Extrem General: no clubbing, cyanosis or edema Psych Appearance: grossly normal Mental Status: mental status grossly normal Affect: normal affect Assessment AND Plan 1. Abdominal pain R10.9 Plan Status post recent laparoscopic cholecystectomy. Has done well. Mild constipation. Continue MiraLAX. Add senna. Increase fluid intake. Advised to call with any questions or concerns. 2. Hypertension I10 Plan Poorly controlled. Now open to medication. We will start on amlodipine, 5 mg daily. Lifestyle/dietary modifications also recommended. Follow- up in 1 month. 3. Headache R51 Plan Chronic, intermittent. However appears to be more bothersome lately. Also history of nasal congestion. Patient with a history of chronic sinusitis. No chills, fever or concerns for ongoing infection at this time. Advised to use Flonase. Tylenol as needed. Readdress at next visit. This note was generated with [employer] dictation software. It may contain incorrect words, spelling, and punctuation that were not noted in checking the note before signing. Plan Detail Other Medications New: Coding Level of Care Code Off vis,est,level 4 Diagnoses Abdominal pain R10.9 Hypertension I10 Headache R51 10/01/18 1659 <Electronically signed by Abilio Valencai MD> Date Abilio Valencia MD Cosigner Signature: Date (if applicable) CC: 12 LEAD ELECTROCARDIOGRAM Observed: 09/26/2018 Status: F Source: [place] 11:28 AM [facility] REPOSITORY [facility] [address] [place] [id number] 12 Lead EKG 09/24/18 1241 MR#: [id number] Acct: [id number] Name: BRET WHALEY Rep #: [id number] : 1935 83 From: Ronald Taylor MD Attending Dr: Adolph Wilde MD Status: DEP [facility] Ordering Dr: Adolph Wilde MD Date: 09/24/18 Location: [facility] Sex: M C Admitted: Test Reason : PREOP Blood Pressure : / mmHG Vent. Rate : 086 BPM Atrial Rate : 074 BPM P-R Int : 214 ms QRS Dur : 088 ms QT Int : 386 ms P-R-T Axes : 030 -12 062 degrees QTc Int : 461 ms Sinus rhythm with 1st degree A-V block with frequent and consecutive Premature ventricular complexes Abnormal ECG When compared with ECG of 20-NOV-2017 05:29, Premature ventricular complexes are now Present Confirmed by RONALD TAYLOR MD ([id number]), research editor NAGA RANDHAWA ([id number]) on 09/26/2018 11:27:54 AM Referred By: Adolph Wilde Confirmed By:RONALD TAYLOR MD 09/26/18 1128 Date Ronald Taylor MD CC: Adolph Wilde MD; Abilio Valencia MD Signed OPERATIVE REPORT Observed: 09/24/2018 Status: F Source: [place] 3:35 PM [facility] REPOSITORY [facility] Medical Records Department [address] [place] [address] [place] [address] Operative Report 09/24/18 1533 MR#: [id number] Acct: [id number] Name: BRET WHALEY Rep #: [id number] : 1935 83 From: Adolph Wilde MD PCP: Abilio Valencia MD Status: REG [facility] Y Location: [place] [address] Problem List (1) Chronic cholecystitis Status: Chronic Report of Operation Date of Procedure: 09/24/18 Pre-Operative Diagnosis: Biliary colic and chronic cholecystitis Post-Operative Diagnosis: Same Surgery/Procedure Performed:: Laparoscopic cholecystectomy with intraoperative cholangiogram Description of Surgical Findings:: Inflamed gallbladder Specimen's removed: Gallbladder and contents Description of Procedure: After obtaining informed consent patient was brought back to the operating room. General anesthesia was induced. The abdomen was prepped and draped in usual sterile fashion. A small midline incision was made superior to the umbilicus and deepened to the level of fascia. The fascia was elevated and incised. Next the peritoneum was elevated and incised in the same fashion. Finger sweep was performed and the Ramírez trocar was placed into the abdomen. The balloon was inflated. The abdomen was inflated to 15 mmHg. Next a camera was introduced into the abdomen and the abdomen was inspected. Next under direct visualization three 5-mm ports were placed one subxiphoid and 2 subcostal. The gallbladder appeared inflamed. Next the gallbladder was elevated and retracted toward the right shoulder. The peritoneum was stripped from the gallbladder. The infundibulum was located and retracted laterally. Next the triangle of Calot was dissected and the cystic duct and cystic artery were identified. Cholangiograms were performed. The Cooney catheter was used to clamp across the infundibulum and the needle was inserted into the gallbladder. Under fluoroscopy contrast was instilled into the gallbladder and the common duct, cystic duct as well as proximal hepatic ducts were identified. There was good filling of the duodenum. There were no filling defects noted in the common bile duct. The clamp was removed as well as the needle and the infundibulum was grasped once more. Three hemolock clips were placed across the cystic duct. The cystic duct was then divided leaving 2 clips on the stump. The cystic artery was clipped and divided in the same fashion. The hook cautery was then used to take the gallbladder off of the gallbladder bed. Hemostasis was obtained. Gallbladder fossa was irrigated and no active bleeding or bile leakage was noted. Next the camera switched to a 5 mm camera and introduced in the subxiphoid port. An Endopouch bag was placed through the umbilical port and the gallbladder was placed into it. The gallbladder was then removed through the umbilical incision. The camera was then reinserted through the umbilical port. The gallbladder fossa was inspected once more and noted to be hemostatic with no leaking bile. The abdomen was suctioned dry the 5 mm ports were removed under direct visualization. The umbilical port was then removed and the air was removed from the abdomen. Next using an 0 Vicryl suture the umbilical fascia was closed in a [id number] fashion. The umbilical port site was irrigated local anesthetic was administered to all the incisions. All the incisions were closed subcuticular 4-0 Monocryl sutures followed by Steri-Strips and dressings. The patient was awoken and taken to PACU in stable condition. - Admit VTE Documentation VTE Mechan Device Prophylaxis: SCD's 09/24/18 1535 <Electronically signed by Adolph Wilde MD> Date Adolph Wilde MD CC: Adolph Wilde MD; Abilio Valencia MD Signed DISCHARGE INSTRUCTION Observed: 09/24/2018 Status: F Source: [place] 3:35 PM [facility] Medical Records Department [address] [place] [address] Instructions for Home/Discharge Instructions 09/24/18 1535 MR#: [id number] Acct: [id number] Name: BRET WHALEY Rep #: [id number] : 1935 83 From: Adolph Wilde MD PCP: Abilio Valencia MD Status: REG [facility] Discharge Diet: Light diet - advance as tolerated Discharge Activity: Return to Normal Activity, May Not Drive - for 2-3 days or while taking narcotic pain medicataions., - - Do not drive, work heavy equipment or sign legal documents for 24 hours. May shower in (days): 1 - with the bandage in place. Additional Activity Instructions:: Pain medication may cause nausea. You should typically eat light foods as you take your pain medications. Pain medication may also cause constipation. If this is a problem for you, please discuss with your doctor. Call your doctor if your incision/area has: Continuous Slow Oozing, Sudden Increased Bleeding, Increased Pain/ Swelling, Increased Redness, Foul Smelling Discharge, Fever of 101 or Higher Call your doctor if you observe: Fever of 101 or Higher Suture Line Care: Avoid Pulling/Pushing, Avoid Pinching/Bending Additional Dressing/Incision Instructions:: Leave operative bandaids on for 2 days. When you remove dressing, leave Steri-Strips on until your follow-up appointment, or until the Steri-Strips fall off on their own. Allergies/Adverse Reactions: Allergies gluten Adverse Reaction (Verified 09/23/18 08:06) Other celiac's disease Medications to take at Discharge Aspirin [Aspirin, Baby] 81 mg PO DAILY@0800 #0 tab.chew 11/20/17 omeprazole 40 mg capsule,delayed release 40 mg PO QAM #90 cap 07/29/18 Cholecalciferol (VIT D3) [Vitamin D] 1,000 unit PO DAILY 08/18/18 Cholecalciferol (Vitamin D3) [Vitamin D3] 50,000 unit PO QMONTH 08/18/18 Polyethylene Glycol 3350 [Miralax] 17 gm PO DAILY 08/18/18 Hydrocodone Bitart/Apap 5-325 [[place] 5MG-325MG] 1 - 2 tablet PO Q6H PRN PRN 4 Days #20 tablet 09/24/18 The following prescriptions were given: Hydrocodone Bitart/Apap 5-325 [[place] 5MG-325MG] 1 - 2 tablet PO Q6H PRN PRN 4 Days #20 tablet PRN Reason: Pain Orders to be completed after discharge: 12 Lead EKG [[facility]] Time Frame: 09/24/18, Location: None Selected Primary Care Physician: Abilio Valencia MD [Primary Care Provider] - Test Results: Test results from this visit will be discussed in further detail at your follow-up appointment, if applicable. Please Follow Up With: Adolph Wilde MD When: Please call to schedule 2 week follow up appointment. [phone] 09/24/18 153 <Electronically signed by Adolph Wilde MD> Date Adolph Wilde MD CC: Abilio Valencia MD GALLBLADDER Observed: 09/24/2018 Status: F Source: [place] 2:35 PM [facility] RE[facility]ORY Patient: BRET WHALEY : 1935 (83/M) Acct Num: [id number] Phys: Adolph Wilde MD Unit Num: [id number] Loc: [facility] Specimen: [id number] Received: 09/24/181622 Spec Type: GALLBLADDE TISSUES 1 TISSUES: Gallbladder, NOS GROSS DESCRIPTION Received is one container labeled with the patient's name and designated gallbladder. The specimen consists of a gallbladder measuring 8 cm in length and up to 4 cm in diameter. The external surface is pink- elizabeth, smooth and glistening for the most part. Focally it is granular, hemorrhagic and contains cautery artifact. The gallbladder contains green-yellow mucoid bile. No stones are identified in the container or in the gallbladder. The mucosa is bile- stained and without any mass lesions. The gallbladder wall measures up to 0.5 cm in thickness. A focal area of increased subserosal fat is noted. Early Breastfeeding Care Specialist sections from the gallbladder and the cystic duct are submitted in one cassette. / SJ:juan luis 09/25/18 TC:3 CPT: 41801 HEADER OPERATION: Laparoscopic cholecystectomy with IOC PRE-OP DIAGNOSIS: Biliary colic TISSUE SUBMITTED: Gallbladder MICROSCOPIC DESCRIPTION Slides are reviewed. MICROSCOPIC DIAGNOSIS Gallbladder: Chronic cholecystitis and cholesterolosis. No stones are identified in the container or in the gallbladder. SJ:juan luis 09/26/18 Signed Chuckie Juan 09/26/18 <signature on file> Performed By: #### PGALL #### [facility] [address] [facility] [address] [place], [place], [address] CBC-COMPLETE BLOOD CNT Collected: 09/24/2018 Status: F Source: [place] NO DIFF 12:29 PM [facility] Order Comment: Reason for Laboratory Test PREOP TYPE CODE TESTS RESULT OUT OF RANGE REFERENCE UNITS LAB L100.1000 4.4-11.0 K/mm3 Normal WBC 7.0 LAB L100.1200 4.6-6.2 M/mm3 Low RBC 4.37 LAB L100.1300 13.0-16.5 g/dl Normal HGB 14.3 LAB L100.1400 40-54 % Normal HCT 42.2 LAB L100.1500 80-94 fL High MCV 96.6 LAB L100.1600 27.0-32.0 pg High MCH 32.7 LAB L100.1700 32-36 g/gl Normal MCHC 33.9 LAB L100.1810 11.6-14.6 % Normal RDW CV 13.4 LAB L100.1820 35.1-43.9 fl High RDW SD 47.5 LAB L100.1900 150-450 K/mm3 Normal PLT 252 LAB L100.2000 6.2-12.0 fl Normal MPV 10.0 Performed By: #### L100.0500 #### [facility] [address] [place], [address] PROTHROMBIN TIME W/INR Collected: 09/24/2018 Status: F Source: [place] 12:29 PM [facility] Order Comment: Reason for Laboratory Test PREOP TYPE CODE TESTS RESULT OUT OF RANGE REFERENCE UNITS LAB L300.4150 11.7-14.9 SECONDS Normal PROTIME 14.7 LAB L300.4200 Normal INR 1.2 Performed By: #### L300.3900, L300.4310 #### [facility] [address] [facility] [address] [place], [place], [id number] PARTIAL THROMBOPLAST Collected: 09/24/2018 Status: F Source: [place] TIME 12:29 PM [facility] Order Comment: Reason for Laboratory Test PREOP TYPE CODE TESTS RESULT OUT OF REFERENCE UNITS RANGE LAB L300.4310 24.1-36.2 Seconds High PTT 40.2 Performed By: #### L300.3900, L300.4310 #### [facility] [address] [facility] [place], [place], [id number] LIVER PROFILE Collected: 09/24/2018 Status: F Source: [place] 12:29 PM [facility] Order Comment: Reason for Laboratory Test PREOP TYPE CODE TESTS RESULT OUT OF RANGE REFERENCE UNITS LAB L501.1500 6.4-8.2 g/dL Normal T PROT 8.1 LAB L501.1800 3.2-5.0 g/dL Normal ALB 4.3 LAB L501.1950 2.2-4.2 g/dL Normal GLOB 3.8 LAB L501.4100 15-37 U/L Normal AST 19 LAB L501.4305 45-117 U/L Normal ALK P 104 LAB L501.4405 16-61 U/L Normal ALT 28 LAB L501.4600 0.20-1.00 mg/dL Normal T BILI 0.70 LAB L501.4700 0.00-0.30 mg/dL Normal D BILI 0.17 Performed By: #### L500.3400 #### [facility] [address] [facility] [place], [place], [address] CHOLANGIOGRAM/ O Observed: 09/24/2018 Status: F Source: [place] R,INITIAL 4:25 AM [facility] RE[facility]IT[facility] Imaging Services [address] [place] [address] Cholangiogram/ O R,Initial MR#: [id number] Acct: [id number] Name: BRET WHALEY Rep #: [id number] : 1935 M 83 From: Ronnell Iraheta MD PCP: Abilio Valencia MD Status: [facility] Study: Cholangiogram/ O R,Initial Date of Exam: 09/24/18 Exam# [id number] Ordering Dr: Adolph Wilde MD CLINICAL HISTORY: Male, 83 years old. Cholecystectomy PROCEDURE: CHOLANGIOGRAM - intraoperative CONSENT: Obtained Placement of the catheter and the procedure were performed by: Dr. Wilde Fluoroscopy was provided by Sarmad Garcia, who was present in the room time of the procedure. TECHNIQUE: (All elements of maximal sterile barrier technique followed, including US elements as applicable) After removal of the gallbladder, the cystic duct was cannulized, and contrast injected into the biliary tree in a retrograde manner. There is normal distention of the biliary tree with normal flow of contrast into the duodenum. There is no extravasation of contrast outside the lumen of the biliary tree. RAD/Cholangiogram/ O R,Initial IMPRESSION: Normal intraoperative cholangiogram Electronically Signed: Joe Iraheta MD at 16:17 EST , Service support , CC: Adolph Wilde MD; Abilio Valencia MD Equipment Or Machinery Cleaner: Signed SURGERY VISIT REPORT Observed: 2018 Status: F Source: [place] 10:09 AM [facility] [address] [place] [address] [address] [place] [address] OFFICE VISIT Date of Service: 09/17/18 MR#: [id number] Acct: [id number] Name: BRET WHALEY Rep #: [id number] : 1935 Provider: Adolph Wilde MD Age/Sex: 83/M Location: [facility] Status: Signed Intake Intake Visit Reasons: PO EGD 08/19 Chief Complaint: 1 mo Follow up - stomach problem Allergies gluten Adverse Reaction (Verified 08/18/18 16:20) Other Medications Aspirin [Aspirin, Baby] 81 mg PO DAILY@0800 #0 tab.chew 11/20/17 [Rx Confirmed 09/17/18] omeprazole 40 mg capsule,delayed release 40 mg PO QAM #90 cap 07/29/18 [Rx Confirmed 09/17/18] Cholecalciferol (VIT D3) [Vitamin D] 1,000 unit PO DAILY 08/18/18 [History Confirmed 09/17/18] Cholecalciferol (Vitamin D3) [Vitamin D3] 50,000 unit PO QMONTH 08/18/18 [History Confirmed 09/17/18] Polyethylene Glycol 3350 [Miralax] 17 gm PO DAILY 08/18/18 [History Confirmed 09/17/18] Sucralfate [Carafate] 1 gm PO 4X/DAY 30 Days #120 dose 08/19/18 [Rx Confirmed 09/17/18] PFSH Medical History Chronic constipation (Chronic) Diverticulitis (Chronic) Celiac disease (Chronic) IBS (irritable bowel syndrome) (Chronic) Spinal stenosis (Chronic) Carpal tunnel syndrome (Acute) Surgical History History of appendectomy (Acute) History of back surgery (Acute) History of carpal tunnel surgery (Acute) History of cataract surgery (Acute) Family History Brother Heart disease Unknown Celiac disease Social History Smoking Status: Never smoker alcohol intake: never substance use type: does not use 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 The patient an EGD which did show erythema in the stomach and he was started on Carafate and PPI. The patient overall seems to be doing better but he says that the burning in his epigastric region is better but he still has daily right upper quadrant pain radiating to the back. ROS General General: No weight change or fatigue Cardio Cardiovascular: No murmur, pacemaker, heart disease, atrial fibrillation, high blood pressure, heart attack, heart stent, palpitations, shortness of breat with exertion or chest pain Psych Psychiatric: No depression or anxiety Resp Respiratory: No shortness of breath, No sleep apnea, No cough, No COPD, No asthma, No emphysema, No wheezing Gastro Gastrointestinal: Yes abdominal pain, Yes nausea or vomiting, No diarrhea, No constipation, No blood in stool, No acid reflux, No hemorrhoids, No ulcers, No gallbladder problem, No black,tarry stools Ganesh Hematologic: No blood thinners Exam Const General: cooperative Orientation: alert, oriented x3 Resp Effort AND Inspection: normal respiratory effort Auscultation: clear to auscultation bilaterally Cardio Rate: regular rate Rhythm: regular rhythm Heart Sounds: no murmurs GI Inspection: non-distended Palpation: soft, nontender Assessment AND Plan Problems 1. Biliary colic symptom K80.50 Plan 1. Patient seems to be still having biliary colic. He complains of daily right upper quadrant pain that radiates to the back. The patient had an ultrasound originally that showed thickening of his gallbladder with echogenic structures inside of the gallbladder which were thought to be polyps. I explained that I could remove his gallbladder and I could not guarantee that this would resolve his pain but I have already done an EGD and started patient on Carafate so it does not appear to be peptic ulcer disease in origin. 2. I discussed the procedure in detail with the patient. I discussed the risks, benefits, and alternatives of the procedure. I discussed the risks including but not limited to bleeding, infection, injury to surrounding organs such as the liver, bile duct, bowels. I did discuss the possibility of having to convert to an open procedure as well as the possibility that if any injuries occurred this may necessitate further surgery at a tertiary care center. 3. Hold aspirin 5 days prior to procedure Adolph Wilde MD Pager: [facility] [address] [place] [address], [address] [place] [address] Office: Coding Level of Care Code Off vis,est,level 3 Diagnoses Biliary colic symptom K80.50 09/17/18 1009 <Electronically signed by Adolph Wilde MD> Date Adolph Wilde MD Cosigner Signature: Date (if applicable) CC: Abilio Valencia MD OPERATIVE REPORT - Observed: 08/19/2018 Status: F Source: [place] ENDOSCOPY 9:08 AM [facility]ORY [facility] Medical Records Department [address] [place] [address] Operative Report - Endoscopy MR#: [id number] Acct: [id number] Name: BRET WHALEY Rep #: [id number] : 1935 82 From: Adolph Wilde MD PCP: Abilio Valencia MD Status: REG [facility] Patient Name: Bret Whaley Procedure Date: 08/19/2018 8:49 AM Date of : 1935 Age: 82 Procedure: Upper GI endoscopy Indications: Abdominal pain in the right upper quadrant Providers: Adolph Wilde MD Referring MD: Adolph Wilde MD Medicines: Monitored Anesthesia Care Patient Profile: This is an 82 year old male. Refer to note in patient chart for documentation of history and physical. Complications: No immediate complications. Estimated blood loss: Minimal. Procedure: Pre-Anesthesia Assessment: - Prior to the procedure, a History and Physical was performed, and patient medications and allergies were reviewed. The patient's tolerance of previous anesthesia was also reviewed. The risks and benefits of the procedure and the sedation options and risks were discussed with the patient. All questions were answered, and informed consent was obtained. Prior Anticoagulants: The patient has taken aspirin, last dose was 5 days prior to procedure. After reviewing the risks and benefits, the patient was deemed in satisfactory condition to undergo the procedure. After obtaining informed consent, the endoscope was passed under direct vision. Throughout the procedure, the patient's blood pressure, pulse, and oxygen saturations were monitored continuously. The gastroscope was introduced through the mouth, and advanced to the second part of duodenum. The upper GI endoscopy was accomplished without difficulty. The patient tolerated the procedure well. Scope In: 8:52:55 AM Scope Out: 8:57:38 AM Total Procedure Duration Time 0 hours 4 minutes 43 seconds Findings: Localized mild inflammation characterized by linear erosions was found in the cardia. The exam was otherwise without abnormality. Biopsies were taken with a cold forceps in the gastric antrum for Helicobacter pylori testing. The esophagus was normal. Impression: - Gastritis. - The examination was otherwise normal. - Normal esophagus. - Biopsies were taken with a cold forceps for Helicobacter pylori testing. Recommendation: - Patient has a contact number available for emergencies. The signs and symptoms of potential delayed complications were discussed with the patient. Return to normal activities tomorrow. Written discharge instructions were provided to the patient. - Resume previous diet. - Continue present medications. - Await pathology results. - Resume aspirin at prior dose tomorrow. - Return to my office in 1 month. - Use sucralfate suspension 1 gram PO QID for 1 month. Procedure Code(s): --- Professional --- 32142, Esophagogastroduodenoscopy, flexible, transoral; with biopsy, single or multiple Diagnosis Code(s): --- Professional --- K29.70, Gastritis, unspecified, without bleeding R10.11, Right upper quadrant pain CPT copyright 2017 [employer]. All rights reserved. The codes documented in this report are preliminary and upon corporate relations director review may be revised to meet current compliance requirements. Adolph Wilde MD 08/19/2018 9:07:51 AM This report has been signed electronically. Number of Addenda: 0 Note Initiated On: 08/19/2018 8:49 AM 08/19/18 0907 Date Adolph Wilde MD Cosigner Signature: Date (if indicated) CC: Adolph Wilde MD; Abilio Valencia MD Date Dictated: 08/19/18 0849 Date Transcribed: Equipment Or Machinery Cleaner: MICHELLE Signed EGD ([facility] S[facility]) Observed: 08/19/2018 Status: F Source: [place] 8:30 AM [facility] Patient: BRET WHALEY : 1935 (82/M) Acct Num: [id number] Phys: Adolph Wilde MD Unit Num: [id number] Loc: EN Specimen: [id number] Received: 08/19/182 Spec Type: EGD BIOPSY TISSUES 1 TISSUES: Gastric mucous membrane COMMENT The results of immunohistochemistry for Helicobacter pylori will be reported separately ([id number]). GROSS DESCRIPTION Received in fixative is one container labeled with the patient's name and designated antrum biopsy for H. pylori and path. The specimen consists of multiple irregular fragments of light elizabeth soft tissue that in aggregate measure 0.8 x 0.3 x 0.1 cm. The specimen is totally submitted in one cassette. / SJ:juan luis 08/19/18 TC:3 CPT: 09188 HEADER OPERATION: EGD ([facility]) PRE-OP DIAGNOSIS: RUQ pain TISSUE SUBMITTED: Antrum biopsy for H. pylori and path MICROSCOPIC DESCRIPTION Slides are reviewed. MICROSCOPIC DIAGNOSIS Gastric antrum, biopsy: Chronic gastritis, mild to moderate. AM:juan luis 08/20/18 Signed Johnathon Adan 08/20/18 <signature on file> Performed By: #### PEGD #### [facility] [address] [place] [address]. [place], [place], [address] IMMUNOHISTOCHEMISTRY Observed: 08/19/2018 Status: F Source: [place] 12:00 AM [facility] Patient: BRET WHALEY : 1935 (82/M) Acct Num: [id number] Phys: Adolph Wilde MD Unit Num: [id number] Loc: EN Specimen: [id number] Received: 08/19/18 1553 Spec Type: IMMUNO TISSUES 1 TISSUES: Stomach, NOS SPECIMEN INFORMATION: Tissue Source: Antrum biopsy Clinical Info: RUQ pain Specimen Number: [id number] CPT code: 55071 METHODOLOGY: Deparaffinized sections of prefer/formalin-fixed tissue or PAP/DQ stained slides are incubated with monoclonal/polyclonal antibodies/oligonucleotide probes. Localization is made via biotin free immunoperoxidase method. Appropriate controls are performed and reacted as expected. Results on target cell population are indicated in the following table: RESULTS: ANTIBODY / CLONE RESULT H Pylori (polyclonal) negative These tests were developed and their performance characteristics determined by [facility]. They may not have been cleared or approved by the U.S. Food and Drug Administration. The FDA has determined that such clearance or approval is not necessary. INTERPRETATION: Antrum, biopsy: Negative for Helicobacter pylori organisms. SJ:juan luis 08/20/18 PHYSICIAN AND INSTIT[facility] [address] [address] Signed Chuckie Juan 08/20/18 <signature on file> Performed By: #### PIMM #### [facility] [address] [place] [address]. [place], [address] GALLBLADDER Observed: 08/07/2018 Status: F Source: [place] 9:00 AM [facility] Imaging Services [address] [place] [address] Gallbladder MR#: [id number] Acct: [id number] Name: BRET WHALEY Rep #: [id number] : 1935 M 82 From: Malachi Ferro MD PCP: Abilio Valencia MD Status: REG CLI Study: Gallbladder Date of Exam: 08/07/18 Exam# [id number] Ordering Dr: Adolph Wilde MD STUDY: ABDOMINAL ULTRASOUND - RIGHT UPPER QUADRANT REASON FOR VISIT: Male, 82 years old. Right upper quadrant pain radiating to back x2 years TECHNIQUE: Ultrasound evaluation of the right upper quadrant was performed with real-time and static metz-scale imaging. TECHNICAL QUALITY: Limited. Examination limited by bowel gas. COMPARISON: None. FINDINGS: Liver: The liver measures 13.1 cm. There is normal echogenicity of the liver. The bile ducts are within normal limits. There is hepatic color flow. The direction of portal flow is hepatopetal. There is no demonstrated mass lesion. Gallbladder: Normal distended gallbladder. The gallbladder wall measures 3.9 mm. There is a negative sonographic Quezada's sign. There is no pericholecystic fluid. There are no gallstones. There are several small hyperechoic nonmobile foci of the gallbladder which may represent polyps. Common Bile Duct (C.B.D.): The common bile duct measures 3.2 mm. Pancreas: There is nonvisualization of the pancreas. Right Kidney: Normal size of the right kidney. The right kidney measures 9.1 x 4.7 x 4.3 cm. Normal renal cortex. The right cortex measures 1.3 cm. There is no demonstrated renal mass or cyst. There is no right hydronephrosis. US/Gallbladder IMPRESSION: Limited study secondary to excessive bowel gas artifact. Several small hyperechoic nonmobile foci along the gallbladder wall noted which may represent polyps. There is nonvisualization of the pancreas. Electronically Signed: Malachi Ferro MD at 19:03 EDT , Service support , CC: Adolph Wilde MD; Abilio Valencia MD Equipment Or Machinery Cleaner: Signed SURGERY VISIT REPORT Observed: 08/06/2018 Status: F Source: [place] 9:52 AM [facility] [place] REPOSITORY [facility] [address] [place] [address] [address] [place] [address] OFFICE VISIT Date of Service: 08/06/18 MR#: [id number] Acct: [id number] Name: BRET WHALEY Rep #: [id number] : 1935 Provider: Adolph Wilde MD Age/Sex: 82/M Location: 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: No Accompanied by: None Is patient in pain?: No Allergies gluten Adverse Reaction (Verified 07/29/18 11:08) Other Medications Aspirin [Aspirin, Baby] 81 mg PO DAILY@0800 #0 tab.chew 11/20/17 [Rx Confirmed 07/29/18] stool softner PO 01/08/18 [History Confirmed 07/29/18] cholecalciferol (vitamin D3) 50,000 unit capsule 50,000 unit PO QWEEK #20 cap 02/18/18 [Rx Confirmed 07/29/18] blood pressure monitor kit See Dose Instructions .ROUTE .MEDSUPPLY #1 ea 07/29/18 [Rx Confirmed 07/29/18] omeprazole 40 mg capsule,delayed release 40 mg PO QAM #90 cap 07/29/18 [Rx Confirmed 07/29/18] PFSH Medical History Chronic constipation (Chronic) Diverticulitis (Chronic) Celiac disease (Chronic) IBS (irritable bowel syndrome) (Chronic) Spinal stenosis (Chronic) Carpal tunnel syndrome (Acute) Surgical History History of appendectomy (Acute) History of back surgery (Acute) History of carpal tunnel surgery (Acute) History of cataract surgery (Acute) Family History Brother Heart disease Unknown Celiac disease Social History Smoking Status: Never smoker alcohol intake: never substance use type: does not use 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 The patient reports that for the last several months he has been having right lower chest upper abdominal pain. he says he is not having any indigestion with this. He says the chocolate and soda make it worse. He has been on omeprazole for 1 month and he says it is slightly improved it. He says that it is much worse at night than it is during the day and it radiates to the back. It is not associated with nausea or vomiting. ROS General General: No weight change or fatigue Cardio Cardiovascular: No murmur, pacemaker, heart disease, atrial fibrillation, high blood pressure, heart attack, heart stent, palpitations, shortness of breat with exertion or chest pain Psych Psychiatric: No depression or anxiety Resp Respiratory: No shortness of breath, No sleep apnea, No cough, No COPD, No asthma, No emphysema, No wheezing Gastro Gastrointestinal: Yes abdominal pain, No nausea or vomiting, No diarrhea, Yes constipation, No blood in stool, Yes acid reflux, No hemorrhoids, No ulcers, No gallbladder problem, No black,tarry stools Ganesh Hematologic: Yes blood thinners Exam Const General: cooperative Orientation: alert, oriented x3 Resp Effort AND Inspection: normal respiratory effort Auscultation: clear to auscultation bilaterally Cardio Rate: regular rate Rhythm: regular rhythm Heart Sounds: no murmurs GI Inspection: non-distended Palpation: soft, nontender Assessment AND Plan Problems 1. RUQ pain R10.11 Plan 1. Patient is having right upper quadrant pain. This is concerning for possible gallbladder etiology. It may also be related to gastritis or reflux. I explained that I would recommend getting an ultrasound of his gallbladder first. If that shows any stones I would recommend him coming back into the office to discuss laparoscopic cholecystectomy. If he has no gallstones I will schedule him for an EGD to evaluate his esophagus and stomach. 2. I explained endoscopy in detail to the patient. I explained the risks including but not limited to stroke or heart attack with anesthesia, perforation of the GI tract, bleeding, infection. I explained that any of these could necessitate further emergency surgery. The patient understands and all questions were answered sufficiently. The patient wishes to proceed with procedure. Adolph Wilde MD Pager: [facility] [address] [place] [address], [address] [place] [address] Office: Orders Orders: Coding Level of Care Code Off vis,new,level 3 Diagnoses RUQ pain R10.11 08/06/18 0952 <Electronically signed by Adolph Wilde MD> Date Adolph Wilde MD Cosigner Signature: Date (if applicable) CC: Abilio Valencia MD INTERNAL MEDICINE Observed: 07/31/2018 Status: F Source: [place] OFFICE VISIT 5:02 PM [facility] [address] [place] [address] OFFICE VISIT Date of Service: 07/29/18 MR#: [id number] Acct: [id number] Name: BRET WHALEY Rep #: [id number] : 1935 Provider: Abilio Valencia MD Age/Sex: 82/M Location: [facility] [place] Status: Signed Intake Vital Signs07/29/18 Height 5 ft 7 in 07/29/18 Weight: 190 lb 07/29/18 Body Mass Index (BMI) 29.7 07/29/18 Blood Pressure 144/77 H Intake Visit Reasons: 1 mo fu Chief Complaint: 1 mo Follow up - stomach problem Is patient in pain?: No Allergies gluten Adverse Reaction (Verified 07/29/18 11:08) Other Medications Aspirin [Aspirin, Baby] 81 mg PO DAILY@0800 #0 tab.chew 11/20/17 [Rx Confirmed 07/29/18] stool softner PO 01/08/18 [History Confirmed 07/29/18] cholecalciferol (vitamin D3) 50,000 unit capsule 50,000 unit PO QWEEK #20 cap 02/18/18 [Rx Confirmed 07/29/18] blood pressure monitor kit See Dose Instructions .ROUTE .MEDSUPPLY #1 ea 07/29/18 [Rx Confirmed 07/29/18] omeprazole 40 mg capsule,delayed release 40 mg PO QAM #90 cap 07/29/18 [Rx Confirmed 07/29/18] PFSH Medical History Chronic constipation (Chronic) Diverticulitis (Chronic) Celiac disease (Chronic) IBS (irritable bowel syndrome) (Chronic) Spinal stenosis (Chronic) Carpal tunnel syndrome (Acute) Surgical History History of appendectomy (Acute) History of back surgery (Acute) Family History Brother Heart disease Unknown Celiac disease Social History Smoking Status: Never smoker alcohol intake: never substance use type: does not use 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 He was seen about a month ago and started on omeprazole due to symptoms concerning for new onset reflux. For the most part symptoms have improved. He still has occasional flareups. Denies blood in his stool, nausea or vomiting. Blood pressure still noted to be elevated today. He has a history of stage I hypertension. ROS Const Constitutional: No chills, fatigue, fever(s), frequent falls, malaise, weakness, sleep problems or change in appetite Eyes Eyes: No blurry vision, change in vision, double vision, discharge or visual disturbances ENT ENT: No abnormal hearing, ear pain, ear pressure, tinnitus or dizziness/vertigo Resp Respiratory: No cough, shortness of breath or wheezing Cardio Cardiology: No chest pain at rest, chest pain with exertion, shortness of breath, dyspnea on exertion, generalized swelling, irregular heart rhythm, lightheadedness, orthopnea, fast heart rate or palpitations Gastro GI: Positive for abdominal pain (More in the stomach area than abdominal) and heartburn; no change in bowel habits, constipation, diarrhea, nausea/dyspepsia or vomiting Genitourinary Male: No difficulty urinating, burning urination, painful urination, urinary incontinence, urinary frequency, urinary urgency, urinary hesitancy, urinary retention, blood in urine, Frequent nighttime urination/ nocturia, sexual problems, testicle lump or testicle pain Musc Musculoskeletal: No joint pain, back pain, joint swelling, limited range of motion, numbness, tingling or muscle weakness Skin Skin: No change in skin color, itching, rash or wounds Breast Breast: No breast lump or breast pain Neuro Neurology: No frequent falls, weakness, abnormal hearing, numbness, tingling, unsteady gait/balance, dizziness, loss of vision, memory loss or visual disturbances Psych Psychiatric: No memory loss, No anxiety, No change in appetite, No depression, No Thoughts of harming yourself/Others Endo Endocrine: No fatigue, heat intolerance, increased thirst/drinking, increased hunger or increased urination Aller/Imm Allergy/Immunologic: No wheezing, itchy eyes or seasonal allergy symptoms Ganesh/Lymp Hematologic/Lymphatic: No easy bleeding, easy bruising or enlarged lymph nodes Exam Const General: cooperative, no acute distress Orientation: alert, awake, oriented x3 HENMT Head: atraumatic, normocephalic Ears: hearing grossly normal bilaterally Resp Effort AND Inspection: normal respiratory effort, able to speak in complete sentences Auscultation: Bilateral: Clear to Auscultation Cardio Rate: regular rate Rhythm: regular rhythm Heart Sounds: S1 normal, S2 normal GI Palpation: soft (Mild epigastric discomfort.), no hepatosplenomegaly Musc Musculoskeletal: No muscle weakness Neuro General: alert, awake, oriented x3, moves all extremities, CN's II-XI intact bilaterally Extrem General: no clubbing, cyanosis or edema Psych Appearance: grossly normal Mental Status: mental status grossly normal Affect: normal affect Immunizations Fluad 2017- 65yr up(PF)45 mcg(15 mcgx3)/0.5 mL intramuscular syringe Performing Provider: Abilio Valencia MD Administered by: Ginny Sargent on 07/29/18 11:51 Dose Route Admin Location Lot Number Expiration Date [facility] Application Software Engineer 0.5 mL IM Right Deltoid [id number] 04/12/19 [id number] SEQIRUS VIS Given Date VIS Publication Date 07/29/18 01/26/15 Eligibility Eligibility Date Assessment AND Plan 1. Abdominal pain R10.9 Plan Most likely secondary to new onset reflux/gastritis. Has done well on omeprazole with some occasional flareups most often dependent on diet. Due to his age and new onset of symptoms, he may benefit from an EGD. Patient actually insists on an EGD. Referred to general surgery. Continue current medication. Orders Referrals: 2. Hypertension I10 Plan Blood pressure elevated during his visit. He is not open to medications. Advised to keep a blood pressure log. If log shows significantly large portion of poorly controlled blood pressure, I would strongly encouraged that he start on antihypertensive 3. Healthcare maintenance Z00.00 Plan Flu shot given. This note was generated with Dragon dictation software. It may contain incorrect words, spelling, and punctuation that were not noted in checking the note before signing. Plan Detail Other Orders Orders: Referrals: Other Medications New: Refilled: Discontinued: Fluad 2017- 65yr up(PF)45 mcg(15 mcgx3)/0.5 mL intramuscula0.5 mL IM ONCE #1 0RF NS Z23 r syringe (flu vac 2017 65up-[id number](PF)) Discontinued Re ason: Office Medication has been Documented as given Coding Level of Care Code Off vis,est,level 3 Diagnoses Abdominal pain R10.9 Hypertension I10 Healthcare maintenance Z00.00 07/31/18 1702 <Electronically signed by Abilio Valencia MD> Date Abilio Valencia MD Cosigner Signature: Date (if applicable) CC: Observed: 07/05/2018 Status: F Source: [place] STOOL OCCULT BLOOD 8:00 PM [facility] REPOSITORY [facility] iFOB Occult Blood Negative Performed By: #### M100.7900 #### [facility] [address] [place], [address] INTERNAL MEDICINE Observed: 07/01/2018 Status: F Source: [place] OFFICE VISIT 5:15 PM [facility] [place] REPOSITORY [facility] [address] [place] [address] [place] [address] OFFICE VISIT Date of Service: 06/30/18 MR#: [id number] Acct: [id number] Name: BRET WHALEY Rep #: [id number] : 1935 Provider: Abilio Valencia MD Age/Sex: 82/M Location: [facility] Status: Signed Intake Vital Signs06/30/18 Height 5 ft 7 in Intake Visit Reasons: 1 MO FU Chief Complaint: Follow up blood pressure. Is patient in pain?: Yes (back and sides) Pain scale (1-10): 5 Allergies gluten Adverse Reaction (Verified 02/18/18 10:26) Other Medications Aspirin [Aspirin, Baby] 81 mg PO DAILY@0800 #0 tab.chew 11/20/17 [Rx Confirmed 04/14/18] stool softner PO 01/08/18 [History Confirmed 04/14/18] cholecalciferol (vitamin D3) 50,000 unit capsule 50,000 unit PO QWEEK #20 cap 02/18/18 [Rx Confirmed 04/14/18] omeprazole 40 mg capsule,delayed release 40 mg PO QAM #60 cap 06/30/18 [Rx Confirmed 06/30/18] PFSH Medical History Chronic constipation (Chronic) Diverticulitis (Chronic) Celiac disease (Chronic) IBS (irritable bowel syndrome) (Chronic) Spinal stenosis (Chronic) Carpal tunnel syndrome (Acute) Surgical History History of appendectomy (Acute) History of back surgery (Acute) Family History Brother Heart disease Unknown Celiac disease Social History Smoking Status: Never smoker alcohol intake: never substance use type: does not use 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 Details: BRET WHALEY, is a 82 M who presents to the office today for follow-up on his blood pressure. At his last visit his blood pressure was noted to be elevated about 160s over 80. Lifestyle changes were discussed. Blood pressure at this time is 135/74 mmHg. He also discontinued use of NSAIDs. He however reports midsternal upper abdominal pain which is been ongoing over the last month. Reports feeling full easily however denies blood in his stool or any weight changes. He also has no loss of appetite. Pain is said to improve with Pepcid. ROS Const Constitutional: No weight change, body ache, chills, fatigue, sleep problems, fever(s), change in appetite, snoring, weakness, frequent falls, headache(s) or excessive sweating Eyes Eyes: No change in vision, eye pain, light sensitivity or blurry vision ENT ENT: No headache(s), abnormal hearing, ear pain, tinnitus, nasal congestion, sore throat or neck pain Resp Respiratory: No snoring, cough, shortness of breath or wheezing Cardio Cardiology: No excessive sweating, chest pain at rest, chest pain with exertion, shortness of breath, dyspnea on exertion, palpitations, orthopnea or lightheadedness Gastro GI: Positive for constipation; no change in bowel habits, diarrhea, vomiting, nausea/dyspepsia or cramping Genitourinary Male: No painful urination, urinary incontinence, urinary frequency, urinary urgency, blood in urine, testicle pain or other Musc Musculoskeletal: No neck pain, abnormal walking, joint pain, back pain, limited range of motion, numbness, tingling or muscle weakness Skin Skin: No redness, dry skin, itching, lesions, wounds or rash Neuro Neurology: No weakness, frequent falls, headache(s), abnormal hearing, abnormal walking, numbness, tingling, abnormal speech, dizziness or memory loss Psych Psychiatric: No change in appetite, No memory loss, No anxiety, No depression, No Thoughts of harming yourself/Others Endo Endocrine: No fatigue, excessive sweating, cold intolerance, increased thirst/drinking, heat intolerance, flushing or increased hunger Aller/Imm Allergy/Immunologic: No wheezing, itchy eyes, hives or seasonal allergy symptoms Ganesh/Lymp Hematologic/Lymphatic: No easy bleeding, easy bruising or enlarged lymph nodes Exam Const General: cooperative, no acute distress Orientation: alert, awake, oriented x3 [facility] Head: atraumatic, normocephalic Ears: hearing grossly normal bilaterally Resp Effort AND Inspection: normal respiratory effort, able to speak in complete sentences Auscultation: Bilateral: Clear to Auscultation Cardio Rate: regular rate Rhythm: regular rhythm Heart Sounds: S1 normal, S2 normal GI Palpation: soft (Mild epigastric discomfort.), no hepatosplenomegaly Musc Musculoskeletal: No muscle weakness Neuro General: alert, awake, oriented x3, moves all extremities, CN's II-XI intact bilaterally Extrem General: no clubbing, cyanosis or edema Psych Appearance: grossly normal Mental Status: mental status grossly normal Affect: normal affect Assessment AND Plan 1. Borderline hypertension R03.0 Plan Blood pressure largely improved however still essentially stage I/borderline hypertension. Continue lifestyle and dietary modifications. Avoid prolonged use of NSAIDs. Follow-up at next visit. 2. Abdominal pain R10.9 Plan ? Gastritis/reflux however concerning is this is relatively new to patient. Stool occult ordered. Last CBC within normal. Omeprazole 40 mg every morning 30 minutes before breakfast. Lifestyle and dietary modifications discussed. If no significant improvement with the above, will refer for an EGD. This note was generated with [employer]de[employer] dictation software. It may contain incorrect words, spelling, and punctuation that were not noted in checking the note before signing. Orders Orders: Plan Detail Other Medications New: Discontinued: sennosides-docusate sodium 8.6-50 mg (Senna with Docusate S1 tab PO BID PRN constipation odium) Discontinued Reason: Order Changed Follow Up 1 Month Coding Level of Care Code Off vis,est,level 3 Diagnoses Borderline hypertension R03.0 Abdominal pain R10.9 07/01/18 1715 <Electronically signed by Abilio Valencia MD> Date Abilio Valencia MD Cosigner Signature: Date (if applicable) CC: COMPREHENSIVE METABOLIC Collected: 05/29/2018 Status: F Source: [place] 9:19 AM [facility] REPOSITORY TYPE CODE TESTS RESULT OUT OF RANGE REFERENCE UNITS LAB L501.0100 74-106 mg/dL High GLU 111 Result Comment: Fasting Glucose result from 100 to 125 mg/dL suggests IMPAIRED HOMEOSTASIS per A.D.A. criteria. Please note revised GLUCOSE reference range effective 2017. LAB L501.1000 7-18 mg/dL Normal BUN 16 LAB L501.1100 0.70-1.30 mg/dL Normal CREAT,SERUM 1.06 Result Comment: The validity of the calculated GFR AND GFRAA in patients over 70 years has not been determined. Clinical correlation is essential. LAB L501.1110 >60 mL/min Normal EST GFR 71 Result Comment: Non- GFR Calc LAB L501.1115 >60 mL/min Normal EST GFR - AA 86 Result Comment: GFR Calc LAB L501.1300 10-20 RATIO Normal BUN/CRE 15.1 LAB L501.1500 6.4-8.2 g/dL T Normal PROT 8.2 LAB L501.1800 3.2-5.0 g/dL Normal ALB 4.2 LAB L501.1950 2.2-4.2 g/dL Normal GLOB 4.0 LAB L501.2000 0.9-2.4 RATIO Normal A/G 1.0 LAB L501.2200 8.5-10.1 mg/dL CA Normal 9.2 LAB L501.4100 15-37 U/L Normal AST 26 LAB L501.4305 45-117 U/L Normal ALK P 91 LAB L501.4405 16-61 U/L Normal ALT 29 LAB L501.4600 0.20-1.00 mg/dL T Normal BILI 0.60 LAB L501.5300 136-145 mmol/L NA Normal 139 LAB L501.5600 3.5-5.1 mmol/L K Normal 4.2 LAB L501.5900 98-107 mmol/L CL Normal 104 LAB L501.6100 21.0-32.0 mmol/L Normal CO2 29.0 LAB L501.6200 5-15 Normal GAP 6 Performed By: #### L500.4050, L503.0105, L506.1000 #### [facility] [address] [place], [address] VITAMIN B12 Collected: 05/29/2018 Status: F Source: [place] 9:19 AM [facility] REPOSITORY TYPE CODE TESTS RESULT OUT OF RANGE REFERENCE UNITS LAB L503.0105 211-911 pg/mL Normal Vitamin B12 503 Performed By: #### L500.4050, L503.0105, L506.1000 #### [facility] [address] [place], [address] VITAMIN D,25 HYDROXY Collected: 05/29/2018 Status: F Source: [place] 9:19 AM [facility] REPOSITORY TYPE CODE TESTS RESULT OUT OF REFERENCE UNITS RANGE LAB L506.1000 29.95-100.01 ng/mL Low Vitamin D 28.8 25-OH Result Comment: Vitamin D 25(OH) Status Range Deficiency <20 ng/mL (50nmol/L) Insuffciency 20 - 30 ng/mL (50 - 75 nmol/L) Sufficiency 30 - 100 ng/mL (75 - 250 nmol/L) Toxicity >100 ng/mL (>250 nmol/L) Performed By: #### L500.4050, L503.0105, L506.1000 #### [facility] [place], [address] CBC W/DIFF, AUTOMATED Collected: 05/29/2018 Status: F Source: [place] 9:19 AM [facility] REPOSITORY TYPE CODE TESTS RESULT OUT OF RANGE REFERENCE UNITS LAB L100.1000 4.4-11.0 K/mm3 Normal WBC 6.1 LAB L100.1200 4.6-6.2 M/mm3 Low RBC 4.34 LAB L100.1300 13.0-16.5 g/dl Normal HGB 14.2 LAB L100.1400 40-54 % Normal HCT 43.1 LAB L100.1500 80-94 fL High MCV 99.3 LAB L100.1600 27.0-32.0 pg High MCH 32.7 LAB L100.1700 32-36 g/gl Normal MCHC 32.9 LAB L100.1810 11.6-14.6 % Normal RDW CV 13.8 LAB L100.1820 35.1-43.9 fl High RDW SD 50.0 LAB L100.1900 150-450 K/mm3 Normal PLT 263 LAB L100.2000 6.2-12.0 fl Normal MPV 11.3 LAB L100.2100 47-70 % Normal NEUT% 62.2 LAB L100.2200 19-41 % Normal LY% 26.1 LAB L100.2300 0-10 % High MONO% 10.4 LAB L100.2400 0-5 % Normal EO% 0.8 LAB L100.2500 0-1 % Normal BASO% 0.5 LAB L100.2550 0.0-0.9 % Normal IM GRAN % 0.000 Result Comment: IG% - Immature Granulocytes (promyelocytes, myelocytes and metamyelocytes) > 1% indicates that a LEFT SHIFT is Present. LAB L100.2620 2.0-7.7 X10 3/uL Normal Absolute Neut 3.8 LAB L100.2720 0.83-4.51 X10 3/ul Normal Absolute Lymph 1.60 Performed By: #### L100.0100 #### [facility] [place], [address] INTERNAL MEDICINE Observed: 05/27/2018 Status: F Source: [place] OFFICE VISIT 4:43 PM [facility] REPOSITORY [facility] [address] [place] [address] OFFICE VISIT Date of Service: 05/26/18 MR#: [id number] Acct: [id number] Name: BRET WHALEY Rep #: [id number] : 1935 Provider: Abilio Valencia MD Age/Sex: 82/M Location: [facility] [place] Status: Signed Intake Vital Signs05/26/18 Height 5 ft 7 in Intake Visit Reasons: 3 mo fu Chief Complaint: pain through back and sides Is patient in pain?: Yes (back through sides, worse with movement) Pain scale (1-10): 7 Allergies gluten Adverse Reaction (Verified 02/18/18 10:26) Other Medications Aspirin [Aspirin, Baby] 81 mg PO DAILY@0800 #0 tab.chew 11/20/17 [Rx Confirmed 04/14/18] sennosides 8.6 mg-docusate sodium 50 mg tablet 1 tab PO BID PRN #60 tab 01/08/18 [Rx Confirmed 04/14/18] stool softner PO 01/08/18 [History Confirmed 04/14/18] cholecalciferol (vitamin D3) 50,000 unit capsule 50,000 unit PO QWEEK #20 cap 02/18/18 [Rx Confirmed 04/14/18] PFSH Medical History Chronic constipation (Chronic) Diverticulitis (Chronic) Celiac disease (Chronic) IBS (irritable bowel syndrome) (Chronic) Spinal stenosis (Chronic) Carpal tunnel syndrome (Acute) Surgical History History of appendectomy (Acute) History of back surgery (Acute) Family History Brother Heart disease Unknown Celiac disease Social History Smoking Status: Never smoker alcohol intake: never substance use type: does not use 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 He reports abdominal discomfort which is been ongoing for a couple of weeks. Describes this as mild. Constipation has improved however he has been taking senna daily. He feels well otherwise and denies chills, fever, nausea, vomiting or otherwise change in his bowel habit. Blood pressure is also noted to be elevated at 161/82 mmHg. He has no prior history of hypertension. ROS Const Constitutional: No weight change, body ache, chills, fatigue, sleep problems, fever(s), change in appetite, snoring, weakness, frequent falls, headache(s) or excessive sweating Eyes Eyes: No change in vision, eye pain, light sensitivity or blurry vision ENT ENT: No headache(s), abnormal hearing, ear pain, tinnitus, nasal congestion, sore throat or neck pain Resp Respiratory: No snoring, cough, shortness of breath or wheezing Cardio Cardiology: No excessive sweating, chest pain at rest, chest pain with exertion, shortness of breath, dyspnea on exertion, palpitations, orthopnea or lightheadedness Gastro GI: No abdominal pain, change in bowel habits, constipation, diarrhea, vomiting, nausea/dyspepsia or cramping Genitourinary Male: No painful urination, urinary incontinence, urinary frequency, urinary urgency, blood in urine, testicle pain or other Musc Musculoskeletal: Positive for back pain; no neck pain, abnormal walking, joint pain, limited range of motion, numbness, tingling or muscle weakness Skin Skin: No redness, dry skin, itching, lesions, wounds or rash Neuro Neurology: No weakness, frequent falls, headache(s), abnormal hearing, abnormal walking, numbness, tingling, abnormal speech, dizziness or memory loss Psych Psychiatric: No change in appetite, No memory loss, No anxiety, No depression, No Thoughts of harming yourself/Others Endo Endocrine: No fatigue, excessive sweating, cold intolerance, increased thirst/drinking, heat intolerance, flushing or increased hunger Aller/Imm Allergy/Immunologic: No wheezing, itchy eyes, hives or seasonal allergy symptoms Ganesh/Lymp Hematologic/Lymphatic: No easy bleeding, easy bruising or enlarged lymph nodes Exam Const General: cooperative, no acute distress Orientation: alert, awake, oriented x3 HENMT Head: atraumatic, normocephalic Ears: hearing grossly normal bilaterally Resp Effort AND Inspection: normal respiratory effort, able to speak in complete sentences Auscultation: Bilateral: Clear to Auscultation Cardio Rate: regular rate Rhythm: regular rhythm Heart Sounds: S1 normal, S2 normal GI Palpation: soft (Non tender), no hepatosplenomegaly Musc Musculoskeletal: No muscle weakness Neuro General: alert, awake, oriented x3, moves all extremities, CN's II-XI intact bilaterally Extrem General: no clubbing, cyanosis or edema Psych Appearance: grossly normal Mental Status: mental status grossly normal Affect: normal affect Assessment AND Plan 1. Abdominal pain R10.9 Plan Pain is said to start in the lower back and radiate all around his abdomen. Non distressing. No other concerning symptoms. Tylenol as needed for pain. Advised to limit use of ibuprofen. 2. Elevated blood-pressure reading without diagnosis of hypertension R03.0 Plan Blood pressure noted to be elevated during the subserosa. No prior history of hypertension. Dietary and lifestyle modifications discussed. Also advised to limit the use of ibuprofen. Follow-up in 1 month. 3. 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 Labs ordered. Continue current supplements. Orders Orders: 4. Chronic constipation K59.09 Plan Chronic. Currently uses Senokot daily. Advised to alternate Senokot and MiraLAX but preference to its MiraLAX. Other dietary modifications also discussed. Follow-up at next visit. This note was generated with [employer] dictation software. It may contain incorrect words, spelling, and punctuation that were not noted in checking the note before signing. Coding Level of Care Code Off vis,est,level 3 Diagnoses Abdominal pain R10.9 Elevated blood-pressure reading without diagnosis of hypertension R03.0 Malabsorption K90.9 Chronic constipation K59.09 05/27/18 1643 <Electronically signed by Abilio Valencia MD> Date Abilio Valencia MD Cosigner Signature: Date (if applicable) CC: SURGERY VISIT REPORT Observed: 04/15/2018 Status: F Source: [place] 10:25 AM [facility] [address] [place] [address] OFFICE VISIT Date of Service: 04/14/18 MR#: [id number] Acct: [id number] Name: BRET WHALEY Rep #: [id number] : 1935 Provider: Adolph Wilde MD Age/Sex: 82/M Location: 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 Is patient in pain?: Yes Allergies gluten Adverse Reaction (Verified 02/18/18 10:26) Other Medications Aspirin [Aspirin, Baby] 81 mg PO DAILY@0800 #0 tab.chew 11/20/17 [Rx Confirmed 04/14/18] sennosides 8.6 mg-docusate sodium 50 mg tablet 1 tab PO BID PRN #60 tab 01/08/18 [Rx Confirmed 04/14/18] stool softner PO 01/08/18 [History Confirmed 04/14/18] cholecalciferol (vitamin D3) 50,000 unit capsule 50,000 unit PO QWEEK #20 cap 02/18/18 [Rx Confirmed 04/14/18] [facility] Medical History Diverticulitis (Chronic) Celiac disease (Chronic) IBS (irritable bowel syndrome) (Chronic) Carpal tunnel syndrome (Acute) Surgical History History of appendectomy (Acute) History of back surgery (Acute) Family History Brother Heart disease Unknown Celiac disease Social History Smoking Status: Never smoker alcohol intake: never substance use type: does not use 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 He reports that he feels like everything is sliding downward in his abdomen. He says he also has constipation for which he takes daily MiraLAX. He is also complaining that he has to lift his scrotum to sit on his lawnmower. ROS General General: No weight change, appetite, fatigue, colon cancer, breast cancer or weakness HEENT HEENT: No difficulty swallowing, eye injury, eye surgery, swollen glands or hoarseness Endo Endocrine: No thyroid disease, diabetes mellitus, thyroid cancer, Hair loss, heat intolerance or cold intolerance Musc Musculoskeletal: Yes back problems and arthritis; no rheumatoid arthritis, gout or joint pain Cardio Cardiovascular: No murmur, pacemaker, heart disease, atrial fibrillation, high blood pressure, heart attack, heart stent, palpitations, shortness of breat with exertion or chest pain Resp Respiratory: No shortness of breath, No sleep apnea, No cough, No COPD, No asthma, No emphysema, No wheezing Gastro Gastrointestinal: No abdominal pain, No nausea or vomiting, Yes diarrhea, Yes constipation, No blood in stool, No acid reflux, No hemorrhoids, No ulcers, No gallbladder problem, No black,tarry stools Ganesh Hematologic: No blood thinners, No blood disorders, No bleeding, No anemia, No blood clots Neuro Neurologic: No weakness Exam Const General: cooperative, comfortable Nutritional Appearance: average body habitus Resp Effort AND Inspection: normal respiratory effort Auscultation: clear to auscultation bilaterally Cardio Rate: regular rate Rhythm: regular rhythm Heart Sounds: no murmurs GI Other: Abdomen is soft, nontender, nondistended. There is no sign of any inguinal hernia or abdominal hernia. Assessment AND Plan Problems 1. Chronic constipation K59.09 Plan 1. The patient has no sign of inguinal hernia. His scrotum appears normal with no herniated contents. The patient came in because he said he would like surgery to lift everything up in his abdomen as he feels like it is sliding downward and causing his constipation. I explained to him that this was not the case. I asked him if he feels anything prolapsing out of his anus when he goes the bathroom he says no. I told him there is no way to do surgery to pin anything up and nothing usually slides down in the abdomen. Adolph Wilde MD Pager: [facility] [address] [place] [address], [address] [place] [phone] Office: Coding Level of Care Code Off vis,est,level 3 Diagnoses Chronic constipation K59.09 04/15/18 1025 <Electronically signed by Adolph Wilde MD> Date Adolph Wilde MD Cosigner Signature: Date (if applicable) CC: Abilio Valencia MD INTERNAL MEDICINE Observed: 02/18/2018 Status: F Source: [place] OFFICE VISIT 3:27 PM [facility] [address] [place] [address] OFFICE VISIT Date of Service: 02/18/18 MR#: [id number] Acct: [id number] Name: BRET WHALEY Rep #: [id number] : 1935 Provider: Abilio Valencia MD Age/Sex: 82/M Location: [facility] [place] Status: Signed Intake Vital Signs02/18/18 Height 5 ft 8 in 02/18/18 Weight: 195 lb 02/18/18 Body Mass Index (BMI) 29.6 02/18/18 Blood Pressure 147/78 Intake Visit Reasons: physical Chief Complaint: constipation for 1 year Is patient in pain?: No Allergies gluten Adverse Reaction (Verified 02/18/18 10:26) Other Medications Aspirin [Aspirin, Baby] 81 mg PO DAILY@0800 #0 tab.chew 11/20/17 [Rx Confirmed 02/18/18] sennosides 8.6 mg-docusate sodium 50 mg tablet 1 tab PO BID PRN #60 tab 01/08/18 [Rx Confirmed 02/18/18] stool softner PO 01/08/18 [History Confirmed 01/08/18] cholecalciferol (vitamin D3) 50,000 unit capsule 50,000 unit PO QWEEK #20 cap 02/18/18 [Rx Confirmed 02/18/18] PFSH Medical History Diverticulitis (Chronic) Celiac disease (Chronic) IBS (irritable bowel syndrome) (Chronic) Carpal tunnel syndrome (Acute) Surgical History History of appendectomy (Acute) History of back surgery (Acute) Family History Brother Heart disease Unknown Celiac disease Social History Smoking Status: Never smoker alcohol intake: never substance use type: does not use 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 He has no acute complaints at this time. He has been extensively worked up for his constipation including seeing a urologist, general surgery and GI. He was most recently seen by Dr Queen. He has a prior history of Celiac's disease and IBS - D. ROS Const Constitutional: No chills, fatigue, fever(s), frequent falls, malaise, weakness, sleep problems or change in appetite Eyes Eyes: No blurry vision, change in vision, double vision, discharge or visual disturbances ENT ENT: No abnormal hearing, ear pain, ear pressure, tinnitus or dizziness/vertigo Resp Respiratory: No cough, shortness of breath or wheezing Cardio Cardiology: No chest pain at rest, chest pain with exertion, shortness of breath, dyspnea on exertion, generalized swelling, irregular heart rhythm, lightheadedness, orthopnea, fast heart rate or palpitations Gastro GI: Positive for constipation; no abdominal pain, change in bowel habits, diarrhea, nausea/dyspepsia or vomiting Genitourinary Male: No difficulty urinating, burning urination, painful urination, urinary incontinence, urinary frequency, urinary urgency, urinary hesitancy, urinary retention, blood in urine, Frequent nighttime urination/ nocturia, sexual problems, testicle lump or testicle pain Musc Musculoskeletal: Positive for back pain; no joint pain, joint swelling, limited range of motion, muscle weakness, numbness or tingling Skin Skin: No change in skin color, itching, rash or wounds Breast Breast: No breast lump or breast pain Neuro Neurology: No frequent falls, weakness, abnormal hearing, numbness, tingling, unsteady gait/balance, dizziness, loss of vision, memory loss or visual disturbances Psych Psychiatric: No memory loss, No anxiety, No change in appetite, No depression, No Thoughts of harming yourself/Others Endo Endocrine: No fatigue, heat intolerance, increased thirst/drinking, increased hunger or increased urination Aller/Imm Allergy/Immunologic: No wheezing, itchy eyes or seasonal allergy symptoms Ganesh/Lymp Hematologic/Lymphatic: No easy bleeding, easy bruising or enlarged lymph nodes Exam Const General: cooperative, no acute distress Orientation: alert, awake, oriented x3 HENMA Head: atraumatic, normocephalic Ears: hearing grossly normal bilaterally Resp Effort AND Inspection: normal respiratory effort, able to speak in complete sentences Auscultation: Bilateral: Clear to Auscultation Cardio Rate: regular rate Rhythm: regular rhythm Heart Sounds: S1 normal, S2 normal GI Palpation: soft (Non tender), no hepatosplenomegaly Musc Musculoskeletal: No muscle weakness Neuro General: alert, awake, oriented x3, moves all extremities, CN's II-XI intact bilaterally Extrem General: no clubbing, cyanosis or edema Psych Appearance: grossly normal Mental Status: mental status grossly normal Affect: normal affect Assessment AND Plan 1. Chronic constipation K59.09 Plan Most likely idiopathic/related to his history of IBS. Work up in the past has been negative. Typically responds to OTC laxatives. Miralax as needed Dietary modifications discussed. Follow up in 2 months. 2. Malabsorption K90.9 Plan Most likely from his IBS. CBC suggestive of iron deficiency and Vitamin D level also low. Dietary correction of iron recommended for now. Vitamin D replacement also sent in. Will follow. 3. Celiac disease K90.0 Plan Stable. Continue current management. This note was generated with Dragon dictation software. It may contain incorrect words, spelling, and punctuation that were not noted in checking the note before signing. Plan Detail Other Medications New: cholecalciferol (vitamin D3) take weekly for 8 weeks then take m50,000 units PO QWEEK onthly. Follow Up 3 Months Coding Level of Care Code Off vis,est,level 3 Diagnoses Chronic constipation K59.09 Malabsorption K90.9 Celiac disease K90.0 02/18/18 1527 <Electronically signed by Abilio Valencia MD> Date Abilio Valencia MD Cosigner Signature: Date (if applicable) CC: INTERNAL MEDICINE Observed: 01/08/2018 Status: F Source: [place] OFFICE VISIT 2:53 PM [facility] [address] [place] [address] [place] [address] OFFICE VISIT Date of Service: 01/08/18 MR#: [id number] Acct: [id number] Name: BRET WHALEY Rep #: [id number] : 1935 Provider: Joshua Crain NP Age/Sex: 82/M Location: [facility] [place] Status: Signed Intake Vital Signs01/08/18 Height 5 ft 8 in Intake Visit Reasons: bowel pain will est w/Dr. Valencia after acute visit Chief Complaint: constipation for 1 year Is patient in pain?: No Allergies gluten Adverse Reaction (Verified 06/16/17 15:18) Other Medications Aspirin [Aspirin, Baby] 81 mg PO DAILY@0800 #0 tab.chew 11/20/17 [Rx] sennosides 8.6 mg-docusate sodium 50 mg tablet 1 tab PO BID PRN #60 tab 01/08/18 [Rx Confirmed 01/08/18] stool softner PO 01/08/18 [History Confirmed 01/08/18] PFSH Medical History Diverticulitis (Chronic) Celiac disease (Chronic) IBS (irritable bowel syndrome) (Chronic) Carpal tunnel syndrome (Acute) Surgical History History of appendectomy (Acute) History of back surgery (Acute) Family History Brother Heart disease Unknown Celiac disease Social History Smoking Status: Never smoker alcohol intake: never substance use type: does not use 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 He has a past medical history of diverticulosis, IBS, and celiac disease. The patient is a new patient to our office The patient states that he has had extensive workups for his constipation that has been going on for over a year now. He states he has had a colonoscopy done and has had CTs and evaluated by a general surgeon Dr. Heller and they not found the root cause of his constipation. He states that he was seen his previous PCP Dr. Silva who had placed him on Linzess and other laxatives that he did not like the side effects of them. The patient states that his constipation originally occurred 1 year ago when he lifted something heavy and felt a tearing sensation in his lower abdomen. The patient states that his bowel movements are infrequent and sometimes only occur every other day. The patient states that he feels constipated if he does not have a bowel movement daily. He states that his bowel movements now caused him to strain and, and produce small ribbons of stool. The patient does state that he is recommended previous times to see a GI doctor, however has not followed up with one and needs a referral. The patient is currently only taking senna [id number] twice daily. The patient otherwise denies any fever, chills, nausea, vomiting, shortness of breath, chest pain or pressure, palpitations, orthopnea, lower extremity edema, syncope or presyncopal episodes. ROS Const Constitutional: No weight change, body ache, chills, fatigue, sleep problems, fever(s), change in appetite, snoring, weakness, frequent falls, headache(s) or excessive sweating Eyes Eyes: No change in vision, eye pain, light sensitivity or blurry vision ENT ENT: No headache(s), abnormal hearing, ear pain, tinnitus, nasal congestion, sore throat or neck pain Resp Respiratory: Positive for shortness of breath (when his bowls get backed up really bad.); no snoring, cough or wheezing Cardio Cardiology: No excessive sweating, chest pain at rest, chest pain with exertion, shortness of breath, dyspnea on exertion, palpitations, orthopnea or lightheadedness Gastro GI: Positive for change in bowel habits, constipation and bloating; no abdominal pain, diarrhea, vomiting, nausea/dyspepsia or cramping Musc Musculoskeletal: Positive for joint pain, back pain (arthritis) and joint swelling; no neck pain, abnormal walking, limited range of motion, numbness or tingling Skin Skin: No redness, dry skin, itching, lesions, wounds or rash Neuro Neurology: No weakness, frequent falls, headache(s), abnormal hearing, abnormal walking, numbness, tingling, abnormal speech, dizziness or memory loss Psych Psychiatric: No change in appetite, No memory loss, No anxiety, No depression, No Thoughts of harming yourself/Others Endo Endocrine: No fatigue, excessive sweating, cold intolerance, increased thirst/drinking, heat intolerance, flushing or increased hunger Aller/Imm Allergy/Immunologic: No wheezing, itchy eyes, hives or seasonal allergy symptoms Ganesh/Lymp Hematologic/Lymphatic: No easy bleeding, easy bruising or enlarged lymph nodes Exam Const General: cooperative, comfortable, no acute distress Nutritional Appearance: average body habitus, well nourished Orientation: alert, oriented x3 Limitations: mental status not altered Resp Effort AND Inspection: normal respiratory effort, able to speak in complete sentences, normal respiratory pattern, symmetric chest movement, no audible wheezes, no cough Auscultation: Bilateral: Clear to Auscultation Cardio Palpation: normal PMI Rate: regular rate Heart Sounds: S1 normal, S2 normal, normal S1 and S2, no click, no gallops, no murmurs, no rubs GI Inspection: normal to inspection, non-distended Auscultation: normal bowel sounds, no hyperactive bowel sounds, no hypoactive bowel sounds Percussion: normal to percussion Palpation: soft, no hepatosplenomegaly Skin General: no rashes or lesions noted, elasticity normal, turgor normal Lesions: no lesions Rashes: no rashes Extrem General: normal to inspection, normal gait, no edema, no pedal edema Psych Appearance: grossly normal Mental Status: mental status grossly normal Affect: normal affect Attitude: cooperative Thought Process: normal Assessment AND Plan 1. Chronic constipation K59.09 Plan The patient does have a history of chronic constipation. Will request his records from [facility]. A referral was also placed to Dr. Queen gastroenterology. Discussed with patient conservative measures to take including increasing his green leafy vegetables and dietary fiber. Patient is hesitant to starting any prescription medications. Also instructed patient that he may berry picker [id number] senna with Colace instead of just senna that he is taking currently to see if this helps as well. Patient has not had routine screening blood work and has not had a routine physical in quite some time either, he will follow-up in 6 weeks for his physical and by that time we should have prior records as well. Instructed patient on red flag symptoms of bowel obstruction that require urgent medical attention. Orders Referrals: Plan Detail Other Medications New: sennosides-docusate sodium 8.6-50 mg (Senna with Docusate S1 tab PO BID PRN constipation odium) Follow Up 6 weeks or sooner if needed Coding Level of Care Code Off vis,new,level 3 Diagnoses Chronic constipation K59.09 01/08/18 1453 <Electronically signed by Joshua ANTONY> Date Joshua ANTONY Cosigner Signature: Date (if applicable) CC: CBC W/DIFF, AUTOMATED Collected: 12/04/2017 Status: F Source: [place] 2:47 PM [facility]POS[facility] TYPE CODE TESTS RESULT OUT OF RANGE REFERENCE UNITS LAB L100.1000 4.4-11.0 K/mm3 Normal WBC 6.9 LAB L100.1200 4.6-6.2 M/mm3 Low RBC 4.12 LAB L100.1300 13.0-16.5 g/dl Normal HGB 13.8 LAB L100.1400 40-54 % Normal HCT 40.1 LAB L100.1500 80-94 fL High MCV 97.3 LAB L100.1600 27.0-32.0 pg High MCH 33.5 LAB L100.1700 32-36 g/gl Normal MCHC 34.4 LAB L100.1810 11.6-14.6 % Normal RDW CV 13.5 LAB L100.1820 35.1-43.9 fl High RDW SD 47.2 LAB L100.1900 150-450 K/mm3 Normal PLT 268 LAB L100.2000 6.2-12.0 fl Normal MPV 10.8 LAB L100.2100 47-70 % Normal NEUT% 68.4 LAB L100.2200 19-41 % Normal LY% 21.5 LAB L100.2300 0-10 % Normal MONO% 9.0 LAB L100.2400 0-5 % Normal EO% 0.7 LAB L100.2500 0-1 % Normal BASO% 0.3 LAB L100.2550 0.0-0.9 % Normal IM GRAN % 0.100 Result Comment: IG% - Immature Granulocytes (promyelocytes, myelocytes and metamyelocytes) > 1% indicates that a LEFT SHIFT is Present. LAB L100.2620 2.0-7.7 X10 3/uL Normal Absolute Neut 4.7 LAB L100.2720 0.83-4.51 X10 3/ul Normal Absolute Lymph 1.49 Performed By: #### L100.0100 #### [facility] [address] [place], [address] COMPREHENSIVE METABOLIC Collected: 12/04/2017 Status: F Source: [facility] 2:47 PM [facility] REPOSITORY TYPE CODE TESTS RESULT OUT OF RANGE REFERENCE UNITS LAB L501.0100 74-106 mg/dL Normal GLU 88 Result Comment: Please note revised GLUCOSE reference range effective 2017. LAB L501.1000 7-18 mg/dL High BUN 26 LAB L501.1100 0.70-1.30 mg/dL Normal CREAT,SERUM 0.95 Result Comment: The validity of the calculated GFR AND GFRAA in patients over 70 years has not been determined. Clinical correlation is essential. LAB L501.1110 >60 mL/min Normal EST GFR 81 Result Comment: Non- GFR Calc LAB L501.1115 >60 mL/min Normal EST GFR - AA 98 Result Comment: GFR Calc LAB L501.1300 10-20 RATIO High BUN/CRE 27.4 LAB L501.1500 6.4-8.2 g/dL T Normal PROT 8.0 LAB L501.1800 3.2-5.0 g/dL Normal ALB 4.4 LAB L501.1950 2.2-4.2 g/dL Normal GLOB 3.6 LAB L501.2000 0.9-2.4 RATIO Normal A/G 1.2 LAB L501.2200 8.5-10.1 mg/dL CA Normal 8.6 LAB L501.4100 15-37 U/L Normal AST 34 LAB L501.4305 45-117 U/L Normal ALK P 89 LAB L501.4405 16-61 U/L Normal ALT 33 Result Comment: Please note revised ALT reference range effective 2017. LAB L501.4600 0.20-1.00 mg/dL Normal T BILI 0.50 LAB L501.5300 136-145 mmol/L Normal NA 139 LAB L501.5600 3.5-5.1 mmol/L Normal K 3.7 LAB L501.5900 98-107 mmol/L Normal CL 103 LAB L501.6100 21.0-32.0 mmol/L Normal CO2 27.0 LAB L501.6200 5-15 Normal GAP 9 Performed By: #### L500.4050, L501.9520 #### [facility] [address] [place], [place], [id number] THYROID STIM HORMONE Collected: 12/04/2017 Status: F Source: [place] (TSH) 2:47 PM [facility] REPOS[facility]ORY TYPE CODE TESTS RESULT OUT OF RANGE REFERENCE UNITS LAB L501.9520 0.358-3.74 uIU/mL Normal TSH 1.23 Performed By: #### L500.4050, L501.9520 #### [facility] [address] [place], [place], [address] VITAMIN D,25 HYDROXY Collected: 12/04/2017 Status: F Source: [place] 2:47 PM [facility] REPOSITORY TYPE CODE TESTS RESULT OUT OF REFERENCE UNITS RANGE LAB L506.1000 19.95-100.01 ng/mL Low Vitamin D 13.7 25-OH Result Comment: Vitamin D 25(OH) Status Range Deficiency <20 ng/mL (50nmol/L) Insuffciency 20 - 30 ng/mL (50 - 75 nmol/L) Sufficiency 30 - 100 ng/mL (75 - 250 nmol/L) Toxicity >100 ng/mL (>250 nmol/L) Performed By: #### L506.1000 #### [facility] [address] [place], [address] ABD INC DECUB Observed: 12/04/2017 Status: F Source: [place] AND/OR ERECT 2:45 PM [facility] [place] REPOSITORY [facility] Imaging Services [address] [place] [address] Abd Inc Decub and/or Erect MR#: [id number] Acct: [id number] Name: BRET WHALEY Rep #: [id number] : 1935 M 82 From: Daniel Lora MD PCP: Al Higuera MD Status: REG CLI Study: Abd Inc Decub and/or Erect Date of Exam: 12/04/17 Exam# [id number] Ordering Dr: Yosvany Silva MD STUDY: X-RAY - ABDOMEN/PELVIS REASON FOR EXAM: Male, 82 years old. Constipation. Pain. TECHNIQUE: AP supine and upright views of the abdomen and pelvis. COMPARISON: January 22, 2017 FINDINGS: Normal visualized lung bases. There is an unremarkable bowel gas pattern. There is a moderate amount of feces in the colon. There is no demonstrated free abdominal air. The visualized liver, spleen and kidneys are grossly normal in size and morphology. Incidentally noted is a stable calcification in the right upper quadrant of the abdomen There are postsurgical changes in the region of the prostate. There is generalized osteopenia with lower lumbar spondylosis and postsurgical changes. RAD/Abd Inc Decub and/or Erect IMPRESSION: Moderate amount of feces in the colon. No acute pathology. Electronically Signed: Daniel Lora MD at 19:09 EST , Service support , CC: Al Higuera MD; Yosvany Silva MD Equipment Or Machinery Cleaner: Signed 12 LEAD ELECTROCARDIOGRAM Observed: 11/25/2017 Status: F Source: [place] 1:58 PM [facility] REPOSITORY [facility] Cardiovascular Services [address] [place] [address] 12 Lead EKG 11/20/17 0529 MR#: [id number] Acct: [id number] Name: BRET WHALEY Rep #: [id number] : 1935 82 From: Fortino Lew MD Attending Dr: Kell Rodrigez MD Status: DIS ORTEGA Ordering Dr: Joshua Garrison DO Date: 11/20/17 Location: [facility] Sex: M C Admitted: 11/19/17 Test Reason : MORNING EKG Blood Pressure : / mmHG Vent. Rate : 064 BPM Atrial Rate : 064 BPM P-R Int : 214 ms QRS Dur : 098 ms QT Int : 410 ms P-R-T Axes : 021 -10 020 degrees QTc Int : 422 ms Sinus rhythm with 1st degree A-V block Otherwise normal ECG Confirmed by LOUANN JAFFE, FORTINO ([id number]), research editor NAGA RANDHAWA ([id number]) on 11/25/2017 1:58:29 PM Referred By: Confirmed By:FORTINO LEW MD 11/25/17 1358 Date Fortino Lew MD CC: Al Higuera MD; Joshua Garrison DO Signed 12 LEAD ELECTROCARDIOGRAM Observed: 11/22/2017 Status: F Source: [place] 1:34 PM [facility] REPOSITORY [facility] Cardiovascular Services [address] [place] [address] 12 Lead EKG 11/19/17 1238 MR#: [id number] Acct: [id number] Name: BRET WHALEY W Rep #: [id number] : 1935 82 From: Fortino Lew MD Attending Dr: Kell Rodrigez MD Status: DIS ORTEGA Ordering Dr: Roney Wallace MD Date: 11/19/17 Location: [facility] Sex: M C Admitted: 11/19/17 Test Reason : Blood Pressure : / mmHG Vent. Rate : 094 BPM Atrial Rate : 094 BPM P-R Int : 222 ms QRS Dur : 092 ms QT Int : 352 ms P-R-T Axes : 037 -17 016 degrees QTc Int : 440 ms Sinus rhythm with 1st degree A-V block Otherwise normal ECG Confirmed by LOUANN JAFFE, FORTINO ([id number]), research editor NAGA RANDHAWA ([id number]) on 11/22/2017 1:33:41 PM Referred By: SHANTELLE Confirmed By:FORTINO LEW MD 11/22/17 1333 Date Fortino Lew MD CC: Al Higuera MD; Roney Wallace MD Signed DISCHARGE SUMMARY Observed: 11/21/2017 Status: F Source: [place] 7:44 [facility] Medical Records Department [address] [place] [id number] Discharge Summary 11/20/17 1350 MR#: [id number] Acct: [id number] Name: BRET WHALEY Rep #: [id number] : 1935 82 From: Kell Rodrigez MD PCP: Al Higuera MD Status: DIS ORTEGA Y Location: [place] [address] Discharge Date and Diagnosis Date of Admission: 11/19/17 Date of Discharge: 11/20/17 - Primary Discharge Diagnosis Chest pain - Secondary Discharge Diagnosis Chronic Problems Spinal stenosis (Chronic) Hospital Course and Treatment Imaging Results: Clinical Impression(s) from Imaging Studies Chest X-Ray 11/19/17 12:49 IMPRESSION: No acute abnormality is seen. Electronically Signed: Neil Hines MD at 13:31 EST Tel [phone], Service support , None Operations: None Procedures: None Summary of Care Provided: 82 year old M with no significant past medical history who comes in to the hospital with complaints of midsternal chest pain that located at rest, described as dull and pressure-like , radiating to both arms, causing him to be sweaty and nauseated. Patient says his chest pain went away with his 's nitroglycerin. His admitting EKG showed normal sinus rhythm with no ST-T changes, his labs are unremarkable as well as his chest x-ray. Patient was admitted to the monitored bed, monitored on telemetry with no acute events. He underwent 2D echo that was essentially normal. He also underwent stress test that was negative. Patient continued to be asymptomatic throughout his hospital stay and was subsequently discharged to continue on baby aspirin. He will follow-up with his primary care doctor within 2 weeks. Discharge Diet: No Restrictions Discharge Activity: Return to Normal Activity Home Medications: Medications to take at Discharge Aspirin [Aspirin, Baby] 81 mg PO DAILY@0800 #0 tab.chew 11/20/17 Primary Care Physician: Al Higuera MD [Primary Care Provider] - Please follow up with your Primary Care Physician in: within 2 weeks Disposition: Home Minutes spent on discharge:: 25 Patient Condition:: Stable Meaningful Use Info Meaningful Use Diagnoses (Choose all that apply): None applicable Code Visit Inpatient E AND M: [id number] Disch Hosp 11/21/17 0744 <Electronically signed by Kell Rodrigez MD> Date Kell Rodrigez MD Cosigner Signature (if applicable): Date CC: Al Higuera MD; Kell Rodrigez MD Signed STRESS REPORT Observed: 11/20/2017 Status: F Source: [place] 4:13 PM [facility] REPOSITORY [facility] Cardiovascular Services [address] [place] [address] MR#: [id number] Acct: [id number] Name: BRET WHALEY Rep #: [id number] : 1935 82 From: Ronald Taylor MD Primary Care: Al Higuera MD Status: DIS ORTEGA Ordering Dr: Sex: M C Stress Test Report Pharmacologic myocardial perfusion stress test. 82-year-old man with a history of chest pain. Stress protocol: Resting EKG demonstrates sinus rhythm with a rate of 71 bpm resting blood pressure is 142/84 mmHg. 0.4 mg of regadenoson was infused per usual protocol followed by rapid intravenous saline flush injection continuous EKG monitoring was performed. The patient maintained sinus rhythm throughout the recording the resting heart rate was 72 bpm with a maximum heart rate of 94 bpm. The maximum workload was 1 metabolic equivalent. At rest there were no ST or T-wave changes noted to suggest abnormal flow reserve at peak infusion no ST or T-wave changes were noted to suggest abnormal flow reserve. Myocardial perfusion protocol. 9.9 mCi of technetium 99m sestamibi was injected at rest. 0.4 mg of regadenoson was infused per usual protocol peak infusion 30.3 mCi of technetium 99m sestamibi was injected. Stress images were obtained. Stress and rest images were reconstructed and compared in the short axis vertical long and horizontal long axis. Gated images were also obtained. Perfusion SPECT analysis: Review of the stress images demonstrate normal uptake of tracer noted in all areas of the myocardium. The resting images similarly demonstrate normal uptake of tracer noted in all areas of the myocardium. No areas of reversibility are noted suggest ischemia. Gated SPECT analysis: The gated ejection fraction is noted to be 61%. Conclusion: Normal pharmacologic myocardial perfusion stress test. Preserved ejection fraction. 11/20/17 1613 <Electronically signed by Ronald Taylor MD> Date Ronald Taylor MD CC: Al Higuera MD Date Dictated: 11/20/17 1424 Date Transcribed: 11/20/17 1424 Equipment Or Machinery Cleaner: CO Signed DISCHARGE INSTRUCTION Observed: 11/20/2017 Status: F Source: [place] 1:50 PM [facility] REPOSITORY [facility] Medical Records Department [address] [place] [address] Instructions for Home/Discharge Instructions 11/20/17 1348 MR#: [id number] Acct: [id number] Name: BRET WHALEY Rep #: [id number] : 1935 82 From: Kell Rodrigez MD PCP: Al Higuera MD Status: ADM ORTEGA - Discharge Diagnoses Reason(s) for Visit for Discharge Instructions: chest pain You will use the following diet at home:: Regular Your food should be the consistency of: Regular Your liquids should be the consistency of: Regular/Thin Discharge Activity: Return to Normal Activity Additional Instructions: Your stress test was negative. Please follow-up with your doctor on discharge. Allergies/Adverse Reactions: Allergies gluten Adverse Reaction (Verified 06/16/17 15:18) Other celiac's disease Medications to take at Discharge Aspirin [Aspirin, Baby] 81 mg PO DAILY@0800 #0 tab.chew 11/20/17 Primary Care Physician: Al Higuera MD [Primary Care Provider] - Please follow up with your Primary Care Physician in: within 2 weeks Proposed Discharge Date: 11/20/17 11/20/17 1350 <Electronically signed by Kell Rodrigez MD> Date Kell Rodrigez MD CC: Al Higuera MD TROPONIN-I Collected: 11/20/2017 Status: F Source: [place] 2:45 AM [facility] REPOSITORY Order Comment: 'TROP' Serial specimen #1, #2, #3, or #4: 4 TYPE CODE TESTS RESULT OUT OF RANGE REFERENCE UNITS LAB L501.4010 <0.06 ng/mL Normal < 0.02 TROPONIN-I Result Comment: TROPONIN-I EXPECTED VALUES <0.05 NEGATIVE 0.06 - 0.59 AT RISK OF [place] > OR = 0.60 SUGGEST WA Performed By: #### L501.4010 #### [facility] [address] [place], [place], [address] CBC W/DIFF, AUTOMATED Collected: 11/20/2017 Status: F Source: [place] 2:45 AM [facility] REPOSIT[facility] TYPE CODE TESTS RESULT OUT OF RANGE REFERENCE UNITS LAB L100.1000 4.4-11.0 K/mm3 Normal WBC 6.0 LAB L100.1200 4.6-6.2 M/mm3 Low RBC 3.90 LAB L100.1300 13.0-16.5 g/dl Normal HGB 13.2 LAB L100.1400 40-54 % Low HCT 37.4 LAB L100.1500 80-94 fL High MCV 95.9 LAB L100.1600 27.0-32.0 pg High MCH 33.8 LAB L100.1700 32-36 g/gl Normal MCHC 35.3 LAB L100.1810 11.6-14.6 % Normal RDW CV 13.3 LAB L100.1820 35.1-43.9 fl High RDW SD 45.1 LAB L100.1900 150-450 K/mm3 Normal PLT 230 LAB L100.2000 6.2-12.0 fl Normal MPV 10.3 LAB L100.2100 47-70 % Normal NEUT% 54.9 LAB L100.2200 19-41 % Normal LY% 31.9 LAB L100.2300 0-10 % High MONO% 11.2 LAB L100.2400 0-5 % Normal EO% 1.0 LAB L100.2500 0-1 % Normal BASO% 0.8 LAB L100.2550 0.0-0.9 % Normal IM GRAN % 0.200 Result Comment: IG% - Immature Granulocytes (promyelocytes, myelocytes and metamyelocytes) > 1% indicates that a LEFT SHIFT is Present. LAB L100.2620 2.0-7.7 X10 3/uL Normal Absolute Neut 3.3 LAB L100.2720 0.83-4.51 X10 3/ul Normal Absolute Lymph 1.91 Performed By: #### L100.0100 #### [facility] [address] [place], [place], [address] PROTHROMBIN TIME W/INR Collected: 11/20/2017 Status: F Source: [place] 2:45 AM [facility] REPOSITORY TYPE CODE TESTS RESULT OUT OF RANGE REFERENCE UNITS LAB L300.4150 11.7-14.9 SECONDS Normal PROTIME 14.9 LAB L300.4200 Normal INR 1.2 Performed By: #### L300.3900, L300.4310 #### [facility] [address] [place], [place], [address] PARTIAL THROMBOPLAST Collected: 11/20/2017 Status: F Source: [place] TIME 2:45 AM [facility] REPOSITORY TYPE CODE TESTS RESULT OUT OF REFERENCE UNITS RANGE LAB L300.4310 24.1-36.2 Seconds High PTT 51.3 Performed By: #### L300.3900, L300.4310 #### [facility] [address] [facility] [place], [place], [address] BASIC METABOLIC Collected: 11/20/2017 Status: F Source: [place] PROFILE (BMP) 2:45 AM [facility] REPOSITORY TYPE CODE TESTS RESULT OUT OF RANGE REFERENCE UNITS LAB L501.0100 74-106 mg/dL Normal GLU 98 LAB L501.1000 7-18 mg/dL Normal BUN 16 LAB L501.1100 0.70-1.30 mg/dL Normal 0.85 CREAT,SERUM Result Comment: The validity of the calculated GFR AND GFRAA in patients over 70 years has not been determined. Clinical correlation is essential. LAB L501.1110 >60 mL/min Normal EST GFR 92 Result Comment: Non- GFR Calc LAB L501.1115 >60 mL/min Normal EST GFR - AA 112 Result Comment: GFR Calc LAB L501.1255 ml/min Normal Estimated CRCL 67.06 LAB L501.1300 10-20 RATIO Normal BUN/CRE 18.9 LAB L501.2200 8.5-10 mg/dL Low .1 CA 8.4 LAB L501.5300 136-14 mmol/L Normal 5 NA 140 LAB L501.5600 3.5-5. mmol/L Normal 1 K 4.0 LAB L501.5900 98-107 mmol/L Normal CL 106 LAB L501.6100 21.0-3 mmol/L Normal 2.0 CO2 28.0 LAB L501.6200 5-15 Normal GAP 6 Performed By: #### L500.2500 #### [facility] [address] [place], [address] TROPONIN-I Collected: 11/19/2017 Status: F Source: [place] 4:49 PM [facility] REPOSIT[facility] Order Comment: 'TROP' Serial specimen #1, #2, #3, or #4: 2 TYPE CODE TESTS RESULT OUT OF RANGE REFERENCE UNITS LAB L501.4010 <0.06 ng/mL Normal < 0.02 TROPONIN-I Result Comment: TROPONIN-I EXPECTED VALUES <0.05 NEGATIVE 0.06 - 0.59 AT RISK OF [place] > OR = 0.60 SUGGEST [place] Performed By: #### L501.4010 #### [facility] [address] [facility], [address] ECHOCARDIOGRAM COMPLETE Observed: 11/19/2017 Status: F Source: [place] 4:11 PM [facility] REPOSITORY [facility] Cardiovascular Services [address] [place] [address] Echo Complete W/ Contrast 11/19/17 1440 MR#: [id number] Acct: [id number] Name: BRET WHALEY Rep #: [id number] : 1935 82 From: Fortino Lew MD Attending Dr: Joshua Garrison DO Status: ADM ORTEGA Ordering Dr: Joshua Garrison DO Date: 11/19/17 Location: [facility] Sex: M C Admitted: 11/19/17 Reason For Study: CHEST PAIN Procedure This was a 2D Doppler, Color Flow transthoracic echocardiogram. The exam was of fair technical quality due to poor acoustic windows. The study was technically difficult. Contrast injection was performed. Exam performed in department. Left Ventricle Normal LV size. Left ventricular systolic function is normal. The estimated ejection fraction is 60 %. No regional wall motion abnormalities noted. Right Ventricle Normal RV size. Normal systolic function. Atria Normal left atrium. Normal right atrium. No doppler evidence for ASD. Mitral Valve There is mild to moderate mitral annular calcification. Equivocal mitral valve prolapse. Trivial mitral valve insufficiency. Tricuspid Valve Normal tricuspid valve. Trivial tricuspid valve insufficiency. Right ventricular systolic pressure estimated to be 31 mmHg. Aortic Valve Trisinus/trileaflet aortic valve. Mild focal aortic valve calcification. Trivial aortic valve insufficiency. Pulmonic Valve The pulmonic valve is not well visualized. Trivial eccentric pulmonic valve insufficiency. Great Vessels Normal sized aortic root. Pericardium/Pleural No pericardial effusion. Medication Diluted definity 3ml given slow IV push to enhance endocardial definition. MMode/2D Measurements AND Calculations LVIDd: 4.9 cm IVSd: 1.00 cm Ao root diam: 3.7 cm LVIDs: 3.5 cm LVPWd: 1.2 cm LA dimension: 3.8 cm RVDd: 3.9 cm FS: 27.7 % LAV(MOD-bp): 39.6 ml EDV(MOD-sp4): 117.4 ml EDV(MOD-sp2): 106.9 ml LAV(MOD-bp) Indexed: 19.4 ml/m2 ESV(MOD-sp4): 52.9 ml EF(MOD-sp2): 64.3 % LAV(MOD-sp2): 52.1 ml EF(MOD-sp4): 55.0 % LAV(MOD-sp4): 24.1 ml SV(MOD-sp4): 64.5 ml SV(MOD-sp2): 68.8 ml LA A4 area: 11.3 cm2 RA A4 area: 8.8 cm2 Doppler Measurements AND Calculations MV E max jeannine: 63.9 cm/sec Ao V2 max: 143.1 cm/sec AI max jeannine: 332.5 cm/sec MV A max jeannine: 114.1 cm/sec Ao max P.2 mmHg AI max P.2 mmHg MV E/A: 0.56 AI dec slope: 163.4 cm/sec2 AI P1/2t: 596.1 msec PA V2 max: 110.3 cm/sec PI end-d jeannine: 129.4 cm/sec TR max jeannine: 263.9 cm/sec TR max P.9 mmHg Interpretation Summary The study was technically difficult. Contrast injection was performed. Left ventricular systolic function is normal. The estimated ejection fraction is 60 %. There is mild to moderate mitral annular calcification. Equivocal mitral valve prolapse. Trivial mitral valve insufficiency. Trivial tricuspid valve insufficiency. Mild focal aortic valve calcification. Trivial aortic valve insufficiency. Trivial eccentric pulmonic valve insufficiency. Right ventricular systolic pressure estimated to be 31 mmHg. Ordering Physician: Joshua Garrison Referring Physician: VICKI HIGUERA Performed By: Ya Robledo, HELGA, RVT 11/19/17 1611 Date Fortino Lew MD CC: Al Higuera MD; Joshua Garrison DO Date Dictated: 11/19/17 1440 Date Transcribed: 11/19/17 1611 Equipment Or Machinery Cleaner: Signed HISTORY AND PHYSICAL Observed: 11/19/2017 Status: F Source: [place] EXAM 2:02 PM [facility] REPOSITORY [facility] Medical Records Department [address] [place] [address] History and Physical 11/19/17 1352 MR#: [id number] Acct: [id number] Name: BRET WHALEY Rep #: [id number] : 1935 82 From: Joshua Garrison DO PCP: Al Higuera MD Status: ADM ORTEGA Y Location: [place] [address] Problem List (1) Chest pain Status: Acute Qualifiers: Chest pain type: precordial pain Qualified Code(s): R07.2 - Precordial pain History of Present Illness Date of Admission: 11/19/17 Chief Complaint: Chest pain The patient is a 82 year old M in the emergency room at [facility] with chief complaint of midsternal chest pain which occurred this morning at rest. Patient described the pain as being dull and pressure-like, radiating to both arms, it also caused him to be sweaty and nauseated. Patient took 1 of his 's nitroglycerin today and this resolved the chest pain. The chest pain lasted approximately half an hour. Patient also stated that 48 hours ago he had an additional episode of chest discomfort which lasted 10 minutes this time it went into the left shoulder and down the left arm he described this also as a dull achy feeling and pressure-like in nature. Patient took 1 of his 's nitroglycerin but it did not have any effect on the discomfort and it went away after about 10 minutes. Patient has no history of medical problems, he takes no medications, he does take a baby aspirin daily. Evaluation in the emergency room included an EKG which showed a normal sinus rhythm without evidence of ischemic changes, patient's labs were unremarkable, patient's chest x-ray was unremarkable. On examination, patient's heart rate and rhythm was regular with occasional unifocal PVCs noted on the monitor, lungs are clear bilaterally, patient was alert and appropriate and had no lower extremity edema. Patient will be placed into observation status on PCU for chest pain, cardiac enzymes will be cycled, echocardiogram will be obtained, patient will undergo nuclear stress test (resting) if his enzymes remain negative. I will keep him on a baby aspirin a day for now Past Medical History Past Medical History (Chronic Problems): Chronic Problems Spinal stenosis (Chronic) Allergies gluten Adverse Reaction (Verified 06/16/17 15:18) Other celiac's disease Home Medications: Ambulatory Orders Medication Instructions Recorded NK [NK] 11/19/17 Surgical History: appendectomy, cataract, - - Lumbar surgery for spinal stenosis Psychiatric History: No pertinent psych hx Lives: Spouse/ Significant Other Smoking Status: Never smoker Tobacco Use: Non-smoker Alcohol: None Drugs: None - *Family History Maternal History Items: No pertinent history Paternal History Items: Heart Disease - of heart failure Review of Systems Constitutional: Denies: Anorexia, Chills, Fever, Night Sweats, Malaise, Weakness, Weight Change, Fatigue Eyes: Denies: Blurred vision, Cataracts, Conjunctivae Inflammation, Double vision, Drainage, Eyelid Inflammation HEENT: Denies: Difficulty Swallowing, Dysphasia, Ear Pain, Eye Pain, Head Aches, Hearing Changes, Nasal bleeding, Nasal Congestion, Post Nasal Drip Cardiovascular: Reports: Chest Pain, Chest Pressure. Denies: Claudication, Chest Tightness, Edema, Heaviness, Light Headedness, Orthopnea, Palpitations, Paroxysmal Noc. Dyspnea, Syncope Respiratory: Denies: Cough, Hemoptysis, Pleuritic Pain, Shortness of Breath, Shortness of breath at rest, Shortness of breath upon exertion, Sputum production, Wheezing Gastrointestinal: Reports: Nausea - With episodes of chest discomfort. Denies: Abdominal Pain, Constipation, Diarrhea, Hematemesis, Hematochezia, Melena, Vomiting Genitourinary: Denies: Dysuria, Frequency, Hematuria, Hesitancy, Incontinence, Nocturia, Urgency Musculoskeletal: Denies: Foot Pain, Hand Pain, Joint Pain, Joint stiffness, Joint swelling, Joint Tenderness Skin: Denies: Dryness, Jaundice, Pruritis, Rash Neurological: Denies: Balance problems, Blurred vision, Double vision, Slurred speech, Difficulty swallowing, Focal weakness, Headaches, Incoordination, Numbness, Tingling Psychiatric: Denies: Anxiety, Depression, Homicidal Ideations, Suicidal Ideations Endocrine: Denies: Change in Body Habitus, Heat/ Cold Intolerance, Polydipsia, Polyuria Hematologic/ Lymphatic: Denies: Adenopathy, Anemia, Easy Bruising, Easy Bleeding, Petechiae, Purpura VTE Information - Inpt Only VTE Present on Admission: No VTE Mechan Device Prophylaxis: None VTE Pharm Prophylaxis ordered?: Yes - Physical Exam General: Alert, Oriented x3, Cooperative, No apparent distress, Well developed, Well nourished HEENT: Atraumatic, PERRLA, EOMI, Normocephalic Oral: Moist Mucosa Neck: Supple, No JVD, Negative Carotid Bruits Lungs: Clear to auscultation, Normal air movement, No rhonchi, No wheeze, No rales Cardiovascular: Regular rate, Regular Rhythm, Normal S1, Normal S2, No murmurs, PMI Normal, No rub noted, No Gallop, - - unifocal PVCs are noted occasionally on the monitor Abdomen: Bowel Sounds Present, Soft, Non Tender, Non-Distended, No hernias noted Extremities: No clubbing, No cyanosis, No edema, Capillary Refill Less than 3 Seconds Skin: No rashes, No breakdown Musculoskeletal: No Tenderness to Palpation of Joints or Extremities Neurological: Cranial nerves II-XII grossly intact, Neuro grossly intact, Sensory exam intact to light touch and pain, Coordination normal Psych/Mental Status: Normal Affect, Appropriate, Alert and oriented to time, place, person, mood and affect Vital Signs Temp Pulse Resp BP Pulse Ox 98.2 F 91 16 127/83 H 98 11/19/17 12:34 11/19/17 13:10 11/19/17 12:34 11/19/17 13:10 11/19/17 13:06 Oxygen Flow Rate 2 Oxygen Delivery Method Nasal Cannula Weight: 89.584 kg Body Mass Index (BMI) 30.0 Laboratory Tests Past 24 Hrs WBC 7.5 RBC 4.42 L Hgb 14.5 Hct 42.6 MCV 96.4 H MCH 32.8 H MCHC 34.0 RDW 13.5 Assessment/Plan #1 precordial chest pain-etiology unclear, patient will be placed in observation status on PCU, enzymes will be cycled, patient will have an echocardiogram, if enzymes are negative, patient will have a resting nuclear stress test tomorrow. Patient will remain on one baby aspirin a day #2 unifocal PVCs-significance unknown patient will be monitored on telemetry Code Visit OBSV Ellen AND M: [id number] Initial observation care L3 11/19/17 1402 <Electronically signed by Joshua Garrison DO> Date Joshua Garrison DO Cosigner Signature: Date (if applicable) CC: Al Higuera MD; Joshua Garrison DO Signed EMERGENCY DEPARTMENT Observed: 11/19/2017 Status: F Source: [place] SUMMARY 1:31 PM [facility] REPOSITORY [facility] Medical Records Department [address] [place] [address] Emergency Department Summary 11/19/17 1254 MR#: [id number] Acct: [id number] Name: BRET WHALEY Rep #: [id number] : 1935 82 From: Roney Wallace MD PCP: Al Higuera MD Status: REG ER - ER Visit Summary Date of Service: 11/19/17 Chief Complaint: Achy left-sided chest pain with diaphoresis on Saturday and midsternal chest discomfort with radiation to both arms and diaphoresis this morning History of Present Illness: The patient is a 82 M because of aching chest discomfort that occurred on Saturday while at rest. Lasted approximately hour. He took one his 's nitro. There was no effect. He states it did not burn under his tongue. He denied nausea question dyspnea. There was no alleviating, precipitating or exacerbating factors. Both parents had [place] in their 80s. He states this morning at 0930 while at rest developed mid chest discomfort with radiation to left and right shoulder and down the right and left upper extremity associated with significant diaphoresis and no other symptoms. Since he was still having pain 1 hour after onset he took 1 of his 's nitroglycerin tablets. He states this 1 burned and it did improve his discomfort. He reports mild discomfort presently. He denies any fever, chills or night sweats. He denies any ocular, visual or auditory symptoms. He denies back pain. He denies any paresthesia, anesthesia or motor weakness. He denies any GI or symptoms. He was seen by Dr. Lonny Masters many years ago and his workup at that time was negative. Physical Examination: Patient's vitals remarkable blood pressure 173/95 and heart rate 103. He states he does not have history of hypertension. He is slightly diaphoretic. HEENT exam is unremarkable. Heart is regular without murmur, gallop or rub. S1 and S2 are normal. Lungs are clear to auscultation with good movement of air bilaterally. There is no reproducible chest or abdominal pain. Abdomen is soft nontender with no palpable subtle mass abdominal bruit. There is no asymmetry, swelling, discoloration, leg vein distention, palpable cords or tenderness along the distribution of the deep venous system. Patient is alert and oriented 3. Motor is 5 over 5. Sensory is intact. DTRs are symmetric with no clonus or Babinski sign. Cranial 2 through 12 are intact. Cerebellar testing is normal. Test Results: EKG reveals a sinus rhythm rate of 94 with first- degree AV block, otherwise normal. Portable chest x-ray to read by me as negative. CBC is unremarkable. BMP reveals slight elevation of glucose of 116. Troponin less than 0.02. Emergency Department Course and Treatment: Chest pain workup was undertaken to evaluate cardiac versus noncardiac etiology. He will receive aspirin since he does not take aspirin and nitroglycerin was ordered since he still complaining of discomfort. Treatment Plan: Serial blood work and provocative testing Disposition: Hospitalist was informed the patient and will admit 23 hour observation monitored bed Impression: Chest pain unknown etiology This note was generated with Verde[employer]o dictation software. It may contain incorrect words, spelling, and punctuation that were not noted in review of the chart prior to signing ED Disposition - Plan for ED Patient: Chief Complaint: Chest Pain Referrals: Al Higuera MD [Primary Care Provider] - What to do if you have Problems For any increased pain, shortness of breath, bleeding, nausea or vomiting, chest pain, or any unexpected problems, contact your Primary Care Provider. Call [facility] ([phone]) or report to the closest Emergency Room. Call 911 if necessary. 11/19/17 1331 <Electronically signed by Roney Wallace MD> Date Roney Wallace MD Cosigner Signature (If Indicated): Date CC: Al Higuera MD CHEST 1 VIEW Observed: 11/19/2017 Status: F Source: [place] (PORTABLE) 12:52 PM [facility] Imaging Services [address] [place] [address] Chest 1 View (Portable) MR#: [id number] Acct: [id number] Name: BRET WHALEY Rep #: [id number] : 1935 M [id number] From: Neil Hines MD PCP: Al Higuera MD Status: REG ER Study: Chest 1 View (Portable) Date of Exam: 11/19/17 Exam# [id number] Ordering Dr: Roney Wallace MD STUDY: X-RAY CHEST REASON FOR EXAM: Male, 82 years old. Left anterior chest pain. TECHNIQUE: Single AP portable view of the chest. COMPARISON: Comparison is made with prior study dated December 10, 2015. FINDINGS: EKG electrodes are seen. Scattered calcified granulomas. The lungs are clear. There is no demonstrated pleural abnormality. Normal size heart. Normal mediastinum and gerber. Normal visualized pulmonary arteries. There is atherosclerotic tortuosity of the aortic arch and descending thoracic aorta. Normal visualized thoracic spine. Normal visualized ribs, clavicles, and shoulders. There is no demonstrated abnormality of the visualized soft tissue structures of the upper abdomen. RAD/Chest 1 View (Portable) IMPRESSION: No acute abnormality is seen. Electronically Signed: Neil Hines MD at 13:31 EST Tel [phone], Service support , CC: Al Higuera MD; Roney Wallace MD Equipment Or Machinery Cleaner: Signed CBC W/DIFF, AUTOMATED Collected: 11/19/2017 Status: F Source: [place] 12:40 PM [facility] TYPE CODE TESTS RESULT OUT OF RANGE REFERENCE UNITS LAB L100.1000 4.4-11.0 K/mm3 Normal WBC 7.5 LAB L100.1200 4.6-6.2 M/mm3 Low RBC 4.42 LAB L100.1300 13.0-16.5 g/dl Normal HGB 14.5 LAB L100.1400 40-54 % Normal HCT 42.6 LAB L100.1500 80-94 fL High MCV 96.4 LAB L100.1600 27.0-32.0 pg High MCH 32.8 LAB L100.1700 32-36 g/gl Normal MCHC 34.0 LAB L100.1810 11.6-14.6 % Normal RDW CV 13.5 LAB L100.1820 35.1-43.9 fl High RDW SD 46.3 LAB L100.1900 150-450 K/mm3 Normal PLT 272 LAB L100.2000 6.2-12.0 fl Normal MPV 10.3 LAB L100.2100 47-70 % Normal NEUT% 63.3 LAB L100.2200 19-41 % Normal LY% 26.8 LAB L100.2300 0-10 % Normal MONO% 8.4 LAB L100.2400 0-5 % Normal EO% 0.7 LAB L100.2500 0-1 % Normal BASO% 0.5 LAB L100.2550 0.0-0.9 % Normal IM GRAN % 0.300 Result Comment: IG% - Immature Granulocytes (promyelocytes, myelocytes and metamyelocytes) > 1% indicates that a LEFT SHIFT is Present. LAB L100.2620 2.0-7.7 X10 3/uL Normal Absolute Neut 4.8 LAB L100.2720 0.83-4.51 X10 3/ul Normal Absolute Lymph 2.01 Performed By: #### L100.0100 #### [facility] [address] [place], [address] BASIC METABOLIC Collected: 11/19/2017 Status: F Source: [place] PROFILE (BMP) 12:40 PM [facility] Order Comment: 'TROP' Serial specimen #1, #2, #3, or #4: 1 TYPE CODE TESTS RESULT OUT OF RANGE REFERENCE UNITS LAB L501.0100 74-106 mg/dL High GLU 116 Result Comment: Fasting Glucose result from 110 to <126 mg/dL suggests IMPAIRED HOMEOSTASIS per A.D.A. criteria. LAB L501.1000 7-18 mg/dL Normal BUN 16 LAB L501.1100 0.70-1.30 mg/dL Normal CREAT,SERUM 0.98 Result Comment: The validity of the calculated GFR AND GFRAA in patients over 70 years has not been determined. Clinical correlation is essential. LAB L501.1110 >60 mL/min Normal EST GFR 78 Result Comment: Non- GFR Calc LAB L501.1115 >60 mL/min Normal EST GFR - AA 95 Result Comment: GFR Calc LAB L501.1255 ml/min Normal Estimated CRCL 58.16 LAB L501.1300 10-20 RATIO Normal BUN/CRE 16.3 LAB L501.2200 8.5-10 mg/dL Normal .1 CA 9.0 LAB L501.5300 136-14 mmol/L Normal 5 NA 140 LAB L501.5600 3.5-5. mmol/L Normal 1 K 3.7 LAB L501.5900 98-107 mmol/L Normal CL 106 LAB L501.6100 21.0-3 mmol/L Normal 2.0 CO2 25.0 LAB L501.6200 5-15 Normal GAP 9 Performed By: #### L500.2500, L501.4010 #### [facility] [address] [place], [place], [address] TROPONIN-I Collected: 11/19/2017 Status: F Source: [place] 12:40 PM [facility] Order Comment: 'TROP' Serial specimen #1, #2, #3, or #4: 1 TYPE CODE TESTS RESULT OUT OF RANGE REFERENCE UNITS LAB L501.4010 <0.06 ng/mL Normal < 0.02 TROPONIN-I Result Comment: TROPONIN-I EXPECTED VALUES <0.05 NEGATIVE 0.06 - 0.59 AT RISK OF [place] > OR = 0.60 SUGGEST [place] Performed By: #### L500.2500, L501.4010 #### [facility] [address] [place], [address] ALLERGIES ALLERGIES DATE TYPE / CODE NAME / CODE REACTION SEVERITY SOURCE 10/28/2018 Drug gluten/F0060 Other Unknown [facility] Allergy/4160 09724([facility] 28876(SNOMED ) Repository CT) ENCOUNTERS ENCOUNTERS ADMIT/DISCHARGE ACCOUNT ADMITTING ENCOUNTER LOCATION SOURCE NUMBER CLASS 10/28/2018/ [id number] Ambulatory BMSBuilding:B [place] 9 5 [place] Repository 10/09/2018/ [id number] Ambulatory BMSBuilding:B [place] 8 5 [facility] Repository 09/29/2018/ [id number] Ambulatory BMSBuilding:B [place] 8 0 [facility] Repository 09/24/2018 [id number] Ambulatory BMSBuilding:B [place] 1 MS.CF.[facility] Repository 09/24/2018 [id number] Ambulatory BMSBuilding:W [place] 6 [facility] Repository 09/24/2018/ [id number] Ambulatory [place] 8 4 [facility] Hospital ing:SDCRoom: Repository [facility] 09/17/2018/ [id number] Ambulatory BMSBuilding:B [place] 8 6 [facility] Repository 08/19/2018/ [id number] Ambulatory [place] 8 9 [facility] Hospital ing:ENRoom: Repository [facility] 08/19/2018/ [id number] Ambulatory BMSBuilding:B [place] 8 7 MS.CF.[facility] Repository 08/07/2018 [id number] Ambulatory Hung [place] 0 [facility] Hospital ing:US Repository 08/06/2018/ [id number] Ambulatory BMSBuilding:B [place] 8 6 [facility] Repository 07/29/2018/ [id number] Ambulatory BMSBuilding:B [place] 8 7 [facility] Repository 07/07/2018 [id number] Ambulatory [place] 6 [facility] Hospital ing:LABSPEC Repository 06/30/2018/ [id number] Ambulatory BMSBuilding:B [place] 8 6 [facility] Repository 05/29/2018 [id number] Ambulatory [place] 1 [facility] ing:LAB Repository 05/26/2018/ [id number] Ambulatory BMSBuilding:B [place] 8 6 [facility] Repository 04/14/2018/ [id number] Ambulatory BMSBuilding:B [place] 8 4 [facility] Repository 02/18/2018/ [id number] Ambulatory BMSBuilding:B [place] 8 1 [facility] Repository 01/08/2018/ [id number] Ambulatory BMSBuilding:B [place] 8 4 [facility] Repository 12/04/2017 [id number] Ambulatory [place] 0 [facility] Hospital ing:POLAB3 Repository 12/04/2017 [id number] Ambulatory [place] 9 [facility] Hospital ing:RAD Repository 11/19/2017/ [id number] [place]re[place], Ambulatory Hung [place] 8 8 [place] [facility] ing:PCURoom: Repository DHU089Eus: 1 11/19/2017 [id number] Tere[place]sky, Ambulatory BMSBuilding:B [place] 9 Joshua [place] Repository 11/19/2017 [id number] [place]re[place]sky, Ambulatory BMSBuilding:B [place] 2 [place] [facility] Repository 11/19/2017/ [id number] Ambulatory BMSBuilding:W [place] 8 5 [facility] Repository PAYERS PAYERS ENCOUNTER GUARANTOR PAYER SUBSCRIBER SOURCE 10/28/2018 BRET W Primary BRET W [place] [id number] Insurance:MEDICARE HOCHSTETLERDOB: Community [address] PART A [facility] [id number] [place] Number: Repository [address]Ves: 330 [id number] [phone] (HP) Date:2018-09-29 10/28/2018 Secondary BRET W [place] Insurance:RURAL HOCHSTETLERDOB: Community CARRIER BENEFIT [id number] Hospital PLANPolicy Number: Repository [id number] Date:0386-46-86IS [address] [place] [address] 39922LL: 10/28/2018 Tertiary NOT GIVENUNK [place] Insurance:SELF PAY [facility] Number[facility] Effective Repository Date:2018-10-20 10/09/2018 BRET W Primary BRET W [place] [id number] Insurance:MEDICARE HOCHSTETLERDOB[facility] [id number] Indian [facility], [place] Number: Repository [address]Psr: 330 [id number] [phone] (HP) Date:2018-09-26 10/09/2018 Secondary BRET W Hung Insurance:RURAL HOCHSTETLERDOB: Community CARRIER BENEFIT [id number] Hospital PLANPolic Number: Repository [id number] Date:0370-77-16TU [address] [address]SN: 10/09/2018 Tertiary NOT GIVENUNK Hung Insurance:SELF PAY [facility] Number: Effective Repository Date:2018-10-08 09/29/2018 BRET W Primary BRET W [place] [id number] Insurance:MEDICARE HOCHSTETLERDOB: Community [address] PART A [facility] [id number] Indian Dental Clinic, [place] Number: Repository [address]Xoe: 330 [id number] [phone] (HP) Date:2018-07-29 09/29/2018 Secondary BRET W Hung Insurance:RURAL HOCHSTETLERDOB: Community CARRIER BENEFIT [id number] Hospital PLANPolicy Number: Repository [id number] Date:8636-33-29IQ [address] [address]PJ: 09/29/2018 Tertiary NOT GIVENUNK [place] Insurance:SELF PAY Community [facility] Number: Effective Repository Date:2018-09-29 09/24/2018 BRET W Primary BRET W [place] [id number] Insurance:MEDICARE HOCHSTETLERDOB: Community [address]NA [address] PART A [facility] [id number] [address]Hzj: 330 [id number] [phone] () Date:2018 09/24/2018 Secondary BRET W Hung Insurance:RURAL HOCHSTETLERDOB: Community [employer]RI[employer]IT [id number] Hospital PLANPolicy Number: Repository [id number] Date:9646-36-54WC [address] [address]SK: 09/24/2018 Tertiary NOT GIVENUNK [place] Insurance:SELF PAY [facility] Number: Effective Repository Date:2018-09-24 09/24/2018 BRET W Primary BRET W [place] [id number] Insurance:MEDICARE HOCHSTETLERDOB: Community [address] PART A [facility] [id number] Number: Repository [address]Wxz: 330 [id number] [phone] () Date:2018 09/24/2018 Secondary BRET W [place] Insurance:RURAL HOCHSTETLERDOB: Community [employer]RIER [employer]IT [id number] Hospital PLANPolicy Number: Repository [id number] Date:0407-13-63YV [address] [address]PE: 09/24/2018 Tertiary NOT GIVENUNK [place] Insurance:SELF PAY Community [facility] Number: Effective Repository Date:2018-09-24 09/24/2018 BRET W Primary BRET W [place] [id number] Insurance:MEDICARE HOCHSTETLERDOB: Community [address] PART A [facility] [id number] Indian Dental Clinic, [place] Number: Repository [address]Ksj: 330 [id number] [phone] (HP) Date:2018 09/24/2018 Secondary BRET W Hung Insurance:RURAL HOCHSTETLERDOB: Community [employer]RI[employer]EFIT [id number] Hospital PLANPolicy Number: Repository [id number] Date:0366-39-89YC [address] [place] [address]CQ: 09/24/2018 Tertiary NOT GIVENUNK Hung Insurance:SELF PAY [facility] Number: Effective Repository Date:2018 2018 BRET W Primary BRET W [place] [id number] Insurance:MEDICARE HOCHSTETLERDOB: Community [address] PART A [facility] [id number] Indian Dental Clinic, [place] Number: Repository [address]Fhc: 330 [id number] [phone] () Date:2018-08-26 2018 Secondary BRET W Hung Insurance:RURAL HOCHSTETLERDOB: Community [employer] [id number] Hospital PLANPolicy Number: Repository [id number] Date:9936-02-79EP [facility] [address] [place] [address] 805[address]HH: 2018 Tertiary NOT GIVENUNK [place] Insurance:SELF PAY [facility] Number: Effective Repository Date:2018 08/19/2018 BRET W Primary BRET W [place] [id number] Insurance:MEDICARE HOCHSTETLERDOB: Community [address] PART A [facility] [id number] Indian Dental Clinic, [place] Number: Repository [address]Pdf: 330 [id number] [phone] () Date:2018-08-15 08/19/2018 Secondary BRET W [place] Insurance:RURAL HOCHSTETLERDOB: Community [employer]IT [id number] Hospital PLANPolicy Number: Repository [id number] Date:8346-74-87RS [address] [place] [address], [place] [address]AQ: 08/19/2018 Tertiary NOT GIVENUNK Hung Insurance:SELF PAY [facility] Number: Effective Repository Date:2018-08-15 08/19/2018 BRET W Primary BRET W [place] [id number] Insurance:MEDICARE HOCHSTETLERDOB: Community [address] PART A [facility] [id number] [facility]ajo Medical Center [place] Number: Repository [address]Mok: 330 [id number] [phone] () Date:2018-08-15 08/19/2018 Secondary BRET W Hung Insurance:RURAL HOCHSTETLERDOB: Community [employer]RI[employer]IT [id number] Hospital PLANPolicy Number: Repository [id number] Date:5043-39-10IJ [facility] [address], [place] [address]TY: 08/19/2018 Tertiary NOT GIVENUNK [place] Insurance:SELF PAY [facility] Number: Effective Repository Date:2018-08-19 08/07/2018 BRET W Primary BRET W Hung [id number] Insurance:MEDICARE HOCHSTETLERDOB: Community [address] PART A [facility] [id number] Indian Dental Clinic, [place] Number: Repository [address]Vpr: 330 [id number] [phone] () Date:2018-08-06 08/07/2018 Secondary BRET W [place] Insurance:RURAL HOCHSTETLERDOB: Community [employer]RI[employer]IT [id number] Hospital PLANPolicy Number: Repository [id number] Date:3061-71-65GL [address]SADIQDIGN[facility] [place] [address]KF: 08/07/2018 Tertiary NOT GIVENUNK [place] Insurance:SELF PAY [facility] Number: Effective Repository Date:2018-08-06 08/06/2018 BRET W Primary BRET W [place] [id number] Insurance:MEDICARE HOCHSTETLERDOB: Community [address] PART A [facility] [id number] Indian Dental Clinic, [place] Number: Repository [address]Pgs: 330 [id number] [phone] (HP) Date:2018-07-29 08/06/2018 Secondary BRET W Hung Insurance:RURAL HOCHSTETLERDOB: Community CARRIER [employer]ENEFIT [id number] PLANPolic Number: Repository [id number] Date:3662-28-12NX [address] [address]JU: 08/06/2018 Tertiary NOT GIVENUNK [place] Insurance:SELF PAY [facility] Number: Effective Repository Date:2018-08-05 07/29/2018 BERT W Primary BRET W [place] [id number] Insurance:MEDICARE HOCHSTETLERDOB: [facility] [address] PART A [facility] [id number] Indian Dental Clinic, [place] Number: Repository [address]Hgx: 330 [id number] [phone] () Date:2018-06-30 07/29/2018 Secondary BRET W [place] Insurance:RURAL KIN[facility]ED HEALTHCARESTETLERDOB: Community CARRIER BENEFIT [id number] [place], [place] [address]ic Number: Repository [id number] Date:6954-30-09LO [address] [place] [address] 184[address]AU: 07/29/2018 Tertiary NOT GIVENUNK [place] Insurance:SELF PAY [facility] Number: Effective Repository Date:2018-07-29 07/07/2018 BRET W Primary BRET W Hung [id number] Insurance:MEDICARE HOCHSTETLERDOB: [facility] [id number] [place] [address], [place]: Repository [address]Nij: 330 [id number] [phone] () Date:2018-07-07 07/07/2018 Secondary BRET W [place] Insurance:RURAL HOCHSTETLERDOB: Community CARRIER BENEFIT [id number] Number: Repository [id number] Date:3430-77-65HD [address] [address]UI: 07/07/2018 Tertiary NOT GIVENUNK [place] Insurance:SELF PAY [facility] Number: Effective Repository Date:2018-07-07 06/30/2018 BRET W Primary BRET W [place] [id number] Insurance:MEDICARE HOCHSTETLERDOB: Community [address] PART A [facility] [id number] Indian Dental Clinic, [place] Number: Repository [address]Zjo: 330 [id number] [phone] (HP) Date:2018-05-26 06/30/2018 Secondary BRET W [place] Insurance:RURAL HOCHSTETLERDOB: Community CARRIER BENEFIT [id number] PLANPolicy Number: Repository [id number] Date:3672-65-37WN [address] [place] [address] [place] [address]VZ: 06/30/2018 Tertiary NOT GIVENUNK [place] Insurance:SELF PAY [facility] Number: Effective Repository Date:2018-06-30 05/29/2018 BRET W Primary BRET W [place] [id number] Insurance:MEDICARE HOCHSTETLERDOB: Community RE[address] PART A [facility] [id number] [place] [address], [place]: Repository [address]Oqh: 330 [id number] [phone] (HP) Date:2018-05-29 05/29/2018 Secondary BRET W [place] Insurance:RURAL HOCHSTETLERDOB: Community CARRIER BENEFIT [id number] Number: Repository [id number] Date:8693-13-75GI [address] [place] [address] [place] [address]FI: 05/29/2018 Tertiary NOT GIVENUNK [place] Insurance:SELF PAY [facility] Number: Effective Repository Date:2018-05-29 05/26/2018 BRET W Primary BRET W [place] [id number] Insurance:MEDICARE HOCHSTETLERDOB: Community [address] PART A [facility] [id number], [place] Number: Repository [address]Cpq: 330 [id number] [phone] (HP) Date:2018-02-18 05/26/2018 Secondary BRET W [place] Insurance:RURAL HOCHSTETLERDOB: Community CARRIER BENEFIT [id number] Hospital PLANPolicy Number: Repository [id number] Date:6696-07-22XX [address] [address]XE: 05/26/2018 Tertiary NOT GIVENUNK [place] Insurance:SELF PAY [facility] Number: Effective Repository Date:2018-05-26 04/14/2018 BRET W Primary BRET W [place] [id number] Insurance:MEDICARE HOCHSTETLERDOB: Community [address] PART A [facility] [id number] Indian Dental Clinic, [place] Number: Repository [address]Kta: 330 [id number] [phone] () Date:2018-04-08 04/14/2018 Secondary BRET W [place] Insurance:RURAL HOCHSTETLERDOB: Community CARRIER BENEFIT [id number] Hospital PLANPolicy Number: Repository [id number] Date:3306-82-48VY [address] [address]QE: 04/14/2018 Tertiary NOT GIVENUNK [place] Insurance:SELF PAY [facility] Number: Effective Repository Date:2018-04-14 02/18/2018 BRET W Primary BRET W [place] [id number] Insurance:MEDICARE HOCHSTETLERDOB: Community RE[address] PART A [facility] [id number] Indian Dental Clinic, [place] Number: Repository [address]Pkm: 330 [id number] [phone] () Date:2018-01-08 02/18/2018 Secondary BRET W [place] Insurance:RURAL HOCHSTETLERDOB: Community CARRIER BENEFIT [id number] Hospital PLANPolicy Number: Repository [id number] Date:7685-77-04YX [address] [address]TQ: 02/18/2018 Tertiary NOT GIVENUNK Hung Insurance:SELF PAY [facility] Number: Effective Repository Date:2018-02-18 01/08/2018 BRET W Primary BRET W Hung [id number] Insurance:MEDICARE HOCHSTETLERDOB: Community [address] PART A [facility] [id number] Indian Dental [facility]: Repository [address]Vfj: 330 [id number] [phone] (HP) Date:2018-01-07 01/08/2018 Secondary BRET W [place] Insurance:RURAL HOCHSTETLERDOB: Community CARRIER BENEFIT [id number] Hospital PLANPolicy Number: Repository [id number] Date:5259-48-26OV [address] [place] [address] 62[address]UN: 01/08/2018 Tertiary NOT GIVENUNK [place] Insurance:SELF PAY [facility] Number: Effective Repository Date:2018-01-08 12/04/2017 BRET W Primary BRET W [place] [id number] Insurance:MEDICARE HOCHSTETLERDOB: Community [address] PART A [facility] [id number] Indian Dental Clinic[place] Number: Repository [address]Glz: 330 [id number] [phone] () Date:2017-12-04 12/04/2017 Secondary BRET W [place] Insurance:RURAL HOCHSTETLERDOB: Community CARRIER BENEFIT [id number] Hospital PLANPolicy Number: Repository [id number] Date:7731-03-87AM [address] [place] [address] 93146IE: 12/04/2017 Tertiary NOT GIVENUNK Hung Insurance:SELF PAY [facility] Effective Repository Date:2017-12-04 12/04/2017 BRET W Primary BRET W [place] [id number] Insurance:MEDICARE HOCHSTETLERDOB: Community REYNA [address] PART A [facility] [id number] [place] Number: Repository [id number]: 330 [id number] [phone] (HP) Date:2017-12-04 12/04/2017 Secondary BRET W [place] Insurance:RURAL HOCHSTETLERDOB: Community CARRIER B[employer]EFIT [id number] Hospital PLANPolicy Number: Repository [id number] Date:6318-54-71YK [address] [place] [address]YR: 12/04/2017 Tertiary NOT GIVENUNK [place] Insurance:SELF PAY [facility] Number: Effective Repository Date:2017-12-04 11/19/2017 BRET W Primary BRET W Hung [id number] Insurance:MEDICARE HOCHSTETLERDOB: Community REYNA [address]WE[address] PART A [facility] [id number] [place] Number[facility] Repository [address]Njv: 330 [id number] [phone] () Date:2017-11-19 11/19/2017 Secondary BRET W Hung Insurance:RURAL HOCHSTETLERDOB: Community CAR[employer]ER B[employer]EFIT [id number] [place] [address] PLANPolicy Number: Repository [id number] Date:2082-15-23IY [facility] [address] [id number]: 11/19/2017 Tertiary NOT GIVENUNK Hung Insurance:SELF PAY [facility] [place] [facility] Number: Effective Repository Date:2017-11-19 11/19/2017 BRET W Primary BRET W Hung [id number] Insurance:MEDICARE HOCHSTETLERDOB: Community REYNA [address]WE[address] PART A [facility] [id number], [place] Number: Repository [id number]: 330 [id number] [phone] () Date:2017-11-19 11/19/2017 Secondary BRET W [place] Insurance:RURAL HOCHSTETLERDOB: Community CARRIER BENEFIT [id number] PLANPolicy Number: Repository [id number] Date:3292-58-80[address] [address] [address]PL: 11/19/2017 Tertiary NOT GIVENUNK [place] Insurance:SELF PAY [facility] Number: Effective Repository Date:2017-11-19 11/19/2017 BRET W Primary BRET W Hung [id number] Insurance:MEDICARE HOCHSTETLERDOB: Community REYNA [address]WE[address] PART A [facility] [id number] Number[place] Repository [id number]: 330 [id number] [phone] () Date:2017-11-19 11/19/2017 Secondary BRET W [place] Insurance:RURAL [facility] HEALTHCARESTETLERDOB: Community CARRIER BENEFIT [id number] Hospital PLANPolicy Number: Repository [id number] Date:4061-12-45PM [address] [address]ZR: 11/19/2017 Tertiary NOT GIVENUNK [place] Insurance:SELF PAY [facility] Effective Rep[facility] Date:2017-11-19 11/19/2017 BRET W Primary BRET W Hung [id number] Insurance:MEDICARE [facility]: [facility] PART A [facility] [id number] [id number]: 330 [id number] [phone] () Date:2017-11-19 11/19/2017 Secondary BRET W [place] Insurance:RURAL [facility] CLINICETLERDOB: Community CARRIER BENEFIT [id number]ository [id number] Date:2571-33-53LK [address] [place] [address]QX: 11/19/2017 Tertiary NOT GIVENUNK [place] Insurance:SELF PAY [facility]: Effective Repository Date:2017-11-19
== END 2018-09-24 19:35 | disposition home or self-care (01) ==
LOC: SDC 12:17 → AC 12:19
PROVIDERS: Anesthesiology; Family Provider Internal Medicine; PCP Internal Medicine; Referring Provider Surgery; Visit Provider Surgery
PROC: (CPT 47610; principal; 2018-09-24 14:15)
DX: K81.1 Chronic cholecystitis (principal); K90.0 Celiac disease; K57.90 Diverticulosis of intestine, part unspecified, without perforation or abscess without bleeding; K58.1 Irritable bowel syndrome with constipation; K21.9 Gastro-esophageal reflux disease without esophagitis; Z79.82 Long term (current) use of aspirin; Z79.899 Other long term (current) drug therapy
CPT/HCPCS: 47563; 74300; 76000; 80076; 85027; 85610; 85730; 88304; 93005; J7120; J2405

== ENCOUNTER → 2018-11-19 07:47 | Outpatient (CLI) | payer MEDICARE, OTHER, SELFPAY ==
[2018-10-28 09:59] VITALS: BMI 29.8
[2018-11-19 11:24] LABS: Cholesterol 146 mg/dL (200); High Density Lipoprotein 43 mg/dL; Triglycerides 85 mg/dL; Very Low Density Lipoprotein 17 mg/dL (5-40)
== END ==
PROVIDERS: Family Provider Internal Medicine; PCP Internal Medicine; Referring Provider Internal Medicine; Visit Provider Internal Medicine
DX: I10 Essential (primary) hypertension (principal)
CPT/HCPCS: 36415; 80061

== ENCOUNTER → 2019-01-26 | Outpatient (CLI) | payer MEDICARE, OTHER, SELFPAY ==
[2019-01-26 10:10] VITALS: BMI 29.8
--- NOTE | 2019-01-26 10:29 | RAD_ITS ---
STUDY: X-RAY - LUMBAR SPINE REASON FOR EXAM: Male, 83 years old. Chronic pain TECHNIQUE: 5 view(s) of the lumbar spine were obtained. COMPARISON: January 08, [address] scan abdomen and pelvis FINDINGS: Normal lumbar lordosis. There is no substantial scoliosis. Slight retrolisthesis at the level of L2-L3. There is multilevel disc space narrowing mild endplate sclerosis and spondylosis. There is multilevel disc space narrowing. There is multilevel facet arthropathy. There is no apparent acute loss of height or alignment. There is chronic appearing loss of height at the level of T11. There is a nonspecific calcification in the right upper quadrant which may represent a renal calcification or phlebolith. This postoperative change within the pelvis. RAD/L/S Spine Min 4 Views IMPRESSION: Degenerative change of the lumbar spine. Stable since prior study. Electronically Signed: Edie Madrid MD at 17:45 EDT Tel , Service support ,
== END | disposition home or self-care (01) ==
LOC: MTRAD 10:28
PROVIDERS: Family Provider Internal Medicine; PCP Internal Medicine; Referring Provider Internal Medicine; Visit Provider Internal Medicine
DX: M54.5 Low back pain (principal)
CPT/HCPCS: 72110

== ENCOUNTER 2019-02-27 09:30 | Outpatient (RCR) | payer MEDICARE, OTHER, SELFPAY ==
[2019-01-26 10:10] VITALS: BMI 29.8
--- NOTE | 2019-02-04 10:02 | HP.PTEVAL ---
Patient's Visit Information SARAH WHALEY is a 83 year old M referred to Physical Therapy by Abilio Valencia MD with a diagnosis of LOW BACK PAIN. Date of Evaluation: 02/04/19 Physical Therapist: Tommy Drummond PT, Cert MDT, OCS - Visit Plan Frequency: 2x /Week Duration: 4 Weeks Plan: INTERVENTIONS LUMBAR FLEXION,DLS ,LE FLEXABILITY - Subjective Findings: This 83 y/o male presents to physical therapy with low back pain left leg. Patient symptoms located hamstring/thigh along left lumbar. Patient had lumbar surgery due to stenosis laminectomy. Aggravating factors to include walking ,standing,lifting. Alleviating factors sitting,rest . Patient seen DR did X-RAYS DDD. Coughing/sneezing-. Denies parathesia/tingling. Sleeping good . No truama. No prior PT.Patients symptoms affects QOL and function. Patient symptoms affect QOL and function with ADLS' housework. SOCIAL: . VOCATION: retired - Pain Left Back Pain Intensity (Out of 10): 5 Pain Intensity Range: 6, 10 Comment: walking Left Lower Extremity Pain Intensity (Out of 10): 7 Pain Intensity Range: 10 Comment: walking - Objective POSTURE: rounded shoulder head foward. GAIT: reciprocal pattern antalgic gait .mild foward posture. NEURO: denies parathesai/tingling,reflexes 1/3 L3-4,L4-5,L5-S1. SYMMTRIES: alighn. PALAPTION: unremarkable. MMT: quads/hams 4/5,hip flexion 4-/5 ,ankle 4/5. LUMBAR ROM: flexion mod loss,extensions mod severe loss,side glides min/mod loss decrease - Special Tests L/S Slump test left side: Negative L/S Slump test right side: Negative L/S Left Straight Leg Raise: Negative L/S Right Straight Leg Raise: Negative Lumbar Standing: Flexion - Mechanical Response: No effect Lumbar Standing: Flexion - Symptoms During Testing: Decreases Lumbar Standing: Flexion - Symptoms After Testing: Better Lumbar Standing: Extension - Mechanical Response: No effect Lumbar Standing: Extension - Symptoms During Testing: Increases Lumbar Standing: Extension - Symptoms After Testing: No worse Lumbar Lying: Flexion - Mechanical Response: No effect Lumbar Lying: Flexion - Symptoms During Testing: Decreases Lumbar Lying: Flexion - Symptoms After Testing: Better - Goals Goal 1:: Independant with HEP Goal Time Frame: 4-6 Weeks Goal 2:: Improve posture for ADL'S. Goal Time Frame: 4-6 Weeks Goal 3:: Patient decrease lumbar pain and leg symptoms by 50% or grearer to improve function. Goal Time Frame: 4-6 Weeks Goal 4:: Patient improve ablity to walk and stand to improve function. Goal Time Frame: 4-6 Weeks Goal 5:: Patient to umprove back owestry by 5 points or greater to improve QOL. Goal Time Frame: 4-6 Weeks - Rehabilitation Potential Physical Therapy Diagnosis: This 83 y/o male presents to physical therapy with LBP with symptoms worse with standing ,walking ,alleviated with sitting flexion. Rehabilitation Potential: Good - Anticipated Interventions Patient/Client Instruction: Educate patient on: Condition, Plan of Care For the Purpose of:: To decrease pain, To increase ROM, To increase oxygenation perfusion, To improve ability to perform ADL's, To increase tolerance to activity/condition/position, To decrease level of supervision to perform tasks, To improve health of tissue, To decrease soft tissue restriction, To increase flexibility/ROM, To improve endurance, To improve ability to perform tasks related to life management Therapeutic Exercise to Include: Strength training, Body mechanics, Postural training, Flexibilty training, Dynamic Lumbar Stabilization For the Purpose of:: To decrease pain, To increase ROM, To increase tolerance to activity/condition/position, To improve performance and independence with ADL's, To improve ability of physical actions for home/community/work/leisure, To improve health of tissue, To decrease soft tissue restriction, To increase flexibility/ROM, To improve ability to perform tasks related to life management TENS: Yes IF ES: Yes Cryotherapy (ice pack, ice massage): Yes Thermo therapy (hot pack): Yes Ultrasound (thermal/non thermal): Yes For the Purpose of:: To decrease pain, To decrease swelling/inflammation, To improve health of tissue Thank you for the opportunity to evaluate your patient. For Medicare and Medicare HMO plans, please review the plan of care and approve it. It will need to be FAXED BACK to us at [phone] for Medicare purposes. For Medicare only, by signing this I certify the plan of care. Please let me know if there are questions or concerns regarding this plan of care. Physician Signature: Date:
--- NOTE | 2019-05-12 08:12 | HP.PT.NRP ---
HP - Discharge Summary (1) - Patient Information SARAH WHALEY was seen in my office for initial evaluation on 02/04/19. The following Plan of Care was established for this patient: Initial Frequency: 2x /Week Initial Duration: 4 Weeks - Anticipated Interventions Patient/Client Instruction: Educate patient on: Condition, Plan of Care For the Purpose of:: To decrease pain, To increase ROM, To increase oxygenation perfusion, To improve ability to perform ADL's, To increase tolerance to activity/condition/position, To decrease level of supervision to perform tasks, To improve health of tissue, To decrease soft tissue restriction, To increase flexibility/ROM, To improve endurance, To improve ability to perform tasks related to life management Therapeutic Exercise to Include: Strength training, Body mechanics, Postural training, Flexibilty training, Dynamic Lumbar Stabilization For the Purpose of:: To decrease pain, To increase ROM, To increase tolerance to activity/condition/position, To improve performance and independence with ADL's, To improve ability of physical actions for home/community/work/leisure, To improve health of tissue, To decrease soft tissue restriction, To increase flexibility/ROM, To improve ability to perform tasks related to life management TENS: Yes IF ES: Yes Cryotherapy (ice pack, ice massage): Yes Thermo therapy (hot pack): Yes Ultrasound (thermal/non thermal): Yes For the Purpose of:: To decrease pain, To decrease swelling/inflammation, To improve health of tissue This patient was last seen in our office . Pertinent comments regarding their Physical therapy will appear below: At this point I will be discontinuing this patient from physical therapy. I would be happy to see this patient again in the future if found appropriate by the physician. Thank you! Tommy Drummond, PT, Cert MDT, OCS
== END 2019-02-27 19:00 | disposition home or self-care (01) ==
LOC: PT 09:30
PROVIDERS: Family Provider Internal Medicine; PCP Internal Medicine; Referring Provider Internal Medicine; Visit Provider Internal Medicine
DX: M54.5 Low back pain (principal)
CPT/HCPCS: 97110; 97162

== ENCOUNTER → 2019-04-09 | Outpatient (CLI) | payer MEDICARE, OTHER, SELFPAY ==
[2019-01-26 10:10] VITALS: BMI 29.8
--- NOTE | 2019-04-09 09:25 | RAD_ITS ---
STUDY: X-RAY - LUMBAR SPINE REASON FOR EXAM: Male, 83 years old. Back pain TECHNIQUE: 5 view(s) of the lumbar spine were obtained. COMPARISON: 01/26/2019 FINDINGS: Normal lumbar lordosis. There is a levoscoliosis of the lumbar spine. There is a normal alignment of the vertebrae. There is multilevel endplate spondylosis of the lumbar vertebrae. There is multi-level degenerative disc disease with multi-level disc space narrowing. The soft tissue structures are unremarkable. RAD/L/S Spine Min 4 Views IMPRESSION: Levoscoliosis with diffuse degenerative disc disease similar to the prior study Electronically Signed: James Erickson MD at 15:52 EDT Tel , Service support ,
--- NOTE | 2019-04-09 09:25 | RAD_ITS ---
STUDY: X-RAY - SACROILIAC JOINTS REASON FOR EXAM: Male, 83 years old. Facet arthropathy TECHNIQUE: 3 view(s) of the sacroiliac joints were obtained. COMPARISON: None. FINDINGS: There is fusion of the bilateral sacroiliac joints consistent with late changes of ankylosing spondylitis (), a seronegative spondyloarthropathy. Normal visualized sacral ala and sacrum. Normal visualized iliac bones. Normal visualized soft tissue structures. 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 Electronically Signed: James Erickson MD at 15:50 EDT Tel , Service support ,
== END | disposition home or self-care (01) ==
PROVIDERS: Family Provider Family Medicine; PCP Family Medicine; Referring Provider Family Medicine; Visit Provider Family Medicine
DX: M47.819 Spondylosis without myelopathy or radiculopathy, site unspecified (principal)
CPT/HCPCS: 72110; 72202

== ENCOUNTER → 2019-04-14 | Outpatient (CLI) | payer MEDICARE, OTHER, SELFPAY ==
[2019-01-26 10:10] VITALS: BMI 29.8
[2019-04-22 17:06] LABS: HLA B27 Negative (.)
== END | disposition home or self-care (01) ==
LOC: MFPLAB 14:07
PROVIDERS: Family Provider Family Medicine; PCP Family Medicine; Referring Provider Family Medicine; Visit Provider Family Medicine
DX: M45.9 Ankylosing spondylitis of unspecified sites in spine (principal)
CPT/HCPCS: 36415; 81374

== ENCOUNTER → 2019-05-14 | Outpatient (CLI) | payer MEDICARE, OTHER, SELFPAY ==
[2019-01-26 10:10] VITALS: BMI 29.8
[2019-05-14 10:39] LABS: Vitamin D,25 Hydroxy 23.2 ng/mL (29.95-100.01)
== END | disposition home or self-care (01) ==
LOC: MFPLAB 09:10
PROVIDERS: Family Provider Family Medicine; PCP Family Medicine; Referring Provider Family Medicine; Visit Provider Family Medicine
DX: E55.9 Vitamin D deficiency, unspecified (principal)
CPT/HCPCS: 36415; 82306

== ENCOUNTER → 2019-06-03 | Outpatient (CLI) | payer MEDICARE, OTHER, SELFPAY ==
[2019-01-26 10:10] VITALS: BMI 29.8
--- NOTE | 2019-06-03 13:24 | MRI_ITS ---
STUDY: MRI LUMBAR SPINE WITHOUT CONTRAST REASON FOR EXAM: Male, 83 years old. The patient presents with a history of low back and leg pain. History of prior surgery (2000). TECHNIQUE: Standardized fat and water weighted pulse sequences were obtained in the sagittal and axial planes. COMPARISON: X-RAY LUMBAR SPINE-April 09, 2019 FINDINGS: Curvature: Normal lordosis. Mild levoscoliosis of the lumbar spine on this non-weight bearing examination. Thoracic Cord (visualized distal) / Conus Medullaris Normal. Terminates at the inferior endplate of T12 vertebra. Disc Space Levels N.B.: Normal level statement indicates: Normal endplates; disc height, signal and morphology; facet joints; central canal, lateral recesses, and intervertebral neuroformina. T12-L1: (Imaged only in the sagittal plane). There is disc dessication with mild annular bulging. Normal central canal and intervertebral neural foramina. L1-L2: There is disc desiccation, moderate loss of the disc height, mild facet arthrosis, with a 3 mm L1 retrolisthesis relationship to the L2 vertebra. Normal central canal. L2-L3: There is disc desiccation with collapse intervertebral disc, with a first-degree L2 retrolisthesis in relationship to the L3 vertebra with 6 mm of posterior displacement. There is uncovering the annulus. There is bilateral facet arthrosis (right greater than left) with severe right-sided foraminal stenosis with neural impingement upon the exiting right L2 nerve root (sagittal T2 series 2, image 12 normal central canal. Left L2-3 intervertebral foramina is normal. There are total laminectomies at the L3 and L4 levels. L3-L4: There is disc desiccation, severe loss of the disc height, endplate irregularity with circumferential endplate spondylosis and bilateral facet. There is severe bilateral osseous foraminal stenosis with neural impingement upon the bilateral exiting L3 nerve roots (sagittal T2 2, images 4 and 11). Normal central canal. L4-L5: There is disc desiccation, severe loss of the disc height with moderate bilateral facet arthrosis. There is bilateral osseous foraminal stenosis with neural impingement upon the bilateral exiting L4 nerve roots (sagittal T2 series 2, images 5 and 12; axial T2 series 5, image 9). Normal central canal. L5-S1: There is disc desiccation, severe loss of the disc height posteriorly with posterior annular bulging and moderate bilateral facet arthrosis. There is mild bilateral osseous foraminal stenosis but without neural impingement. Normal central canal. Sacral Alae: Normal. Retroperitoneum and Paraspinal Structures Kidneys: Partially imaged with no demonstrated abnormality. Aorta: Normal. Inferior Vena Cava: Normal. Lymph Nodes: None visualized. Muscles (Paraspinal): Severe paraspinal muscular atrophy. MRI/Spine Lumbar (Routine) IMPRESSION: 1. Status post total laminectomies at the L3 and L4 levels. 2. Multilevel degenerative disease, endplate spondylosis and facet arthroses of the entire lumbar spine. 3. L2 retrolisthesis with severe right-sided L2-3 foraminal stenosis with neural impingement upon the exiting right L2 nerve root. 4. L3-4 and L4-5 bilateral osseous foraminal stenosis with neural impingement upon the exiting bilateral L3 and L4 nerve roots. 5. Normal central canal all levels. Electronically Signed: Rupesh Mullen DO at 15:19 EDT Tel , Service support ,
== END | disposition home or self-care (01) ==
LOC: MRI 13:19
PROVIDERS: Family Provider Family Medicine; PCP Family Medicine; Referring Provider Anesthesiology Pain Medicine; Visit Provider Anesthesiology Pain Medicine
DX: M54.9 Dorsalgia, unspecified (principal); M79.606 Pain in leg, unspecified
CPT/HCPCS: 72148

== ENCOUNTER → 2019-12-30 08:47 | Outpatient (CLI) | payer MEDICARE, OTHER, SELFPAY ==
[2019-12-28 08:58] VITALS: BMI 29.8
--- NOTE | 2019-12-30 09:00 | RAD_ITS ---
STUDY: AIR CONTRAST UPPER GI SERIES REASON FOR EXAM: Male, 84 years old. CHEST AND THROAT PAIN AND HEARTBURN X 1 YEAR FLUOROSCOPY TIME (if supplied): (0:30) minutes/seconds TECHNIQUE: SINGLE CONTRAST AND AIR CONTRAST FLUOROSCOPIC IMAGES. COMPARISON: None. FINDINGS: The cervical esophagus demonstrates normal motility without aspiration. There is there is a 2.3 mm diverticulum in the midportion of the esophagus. . No intraluminal polypoid mass is identified. The thoracic esophagus distends well without stricture or mucosal fold thickening. No mucosal ulcerations are identified. There is no extrinsic mass effect. There is evidence of gastroesophageal reflux. No hiatal hernia or gastroesophageal reflux was identified. The stomach distends well without mucosal fold thickening or mucosal ulceration. There is no intraluminal mass. The duodenal bulb is freely distensible without deformity or ulceration. The duodenal sweep is normal in position and caliber. RAD/Upper GI w/BA Swallow IMPRESSION: 2.3 mm diverticulum in the midportion of the esophagus. Gastroesophageal reflux. Electronically Signed: Neil Hines, at 10:52 EDT , Service support ,
== END ==
PROVIDERS: PCP Family Medicine; Referring Provider Surgery; Visit Provider Surgery
DX: K21.9 Gastro-esophageal reflux disease without esophagitis (principal); R13.10 Dysphagia, unspecified
CPT/HCPCS: 74246

== ENCOUNTER 2020-03-15 07:30 | Day surgery (SDC) | payer MEDICARE, OTHER, SELFPAY ==
--- NOTE | 2020-03-11 02:33 | HP_ITS ---
Intake Vital Signs 03/11/20 BMI 29.8 03/11/20 Height 5 ft 8 in 03/11/20 Weight: 190 lb 03/11/20 BMI 28.8 03/11/20 BP 167/89 H 03/11/20 Blood Pressure Location Rt brachial 03/11/20 Position Sitting 03/11/20 Respiration 18 03/11/20 Pulse 77 03/11/20 Pulse Source Monitor 03/11/20 Temp 97.7 F L 03/11/20 Temp Source Temporal 03/11/20 Pulse Oximetry (%) 98 03/11/20 Oxygen Delivery Method room air Intake Visit Reasons: UPPER SCOPE Chief Complaint: GERD Tankage Grinder Required: No Is patient in pain?: No Allergies gluten Adverse Reaction (Verified 03/11/20 14:06) Other Medications ibuprofen 200 mg tablet 200 mg PO Q6H PRN 03/11/20 [History Confirmed 03/11/20] PFSH Medical History Gastroesophageal reflux disease (Acute) Chronic cholecystitis (Chronic) Hypertension (Chronic) Borderline hypertension (Chronic) Elevated blood-pressure reading without diagnosis of hypertension (Acute) Abdominal pain (Chronic) Malabsorption (Chronic) Chronic constipation (Chronic) Diverticulitis (Chronic) Celiac disease (Chronic) IBS (irritable bowel syndrome) (Chronic) Spinal stenosis (Chronic) Carpal tunnel syndrome (Acute) Chronic cholecystitis (Chronic) Surgical History History of appendectomy (Acute) History of back surgery (Acute) History of carpal tunnel surgery (Acute) History of cataract surgery (Acute) History of cholecystectomy (Acute) Family History Brother Heart disease Unknown Celiac disease Social History (Updated 03/11/20 @ 14:[address] 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 I had seen him in December at the time that the Covid-19 pandemic was causing cancellation of elective surgery. I got an upper GI contrast study on him showing a small esophageal diverticulum and reflux. I placed him on Dexilant. Apparently his initial dosing seem to help him with his severe reflux but then subsequently he developed diarrhea. Apparently on further searching Dexilant can cause diarrhea in folks who have celiac disease and he does. So he stopped the Dexilant he has had some recurrent problems now with reflux his diarrhea is improving but has not resolved and that is now been for 3 weeks. By previous history he was supposed to have another colonoscopy 2018. The current problems now are reflux disease intolerance to Dexilant diarrhea of undetermined etiology. ROS General General: No weight change, appetite, fatigue, colon cancer, breast cancer or weakness HEENT HEENT: No difficulty swallowing, eye injury, eye surgery, swollen glands or hoarseness Endo Endocrine: No thyroid disease, diabetes mellitus, thyroid cancer, Hair loss, heat intolerance or cold intolerance Skin Skin: No rash or changing moles Musc Musculoskeletal: Yes back problems and arthritis; no rheumatoid arthritis, gout or joint pain Cardio Cardiovascular: No murmur, pacemaker, heart disease, atrial fibrillation, high blood pressure, heart attack, heart stent, palpitations, shortness of breat with exertion or chest pain Psych Psychiatric: No depression, anxiety or hearing voices Resp Respiratory: Yes shortness of breath, No sleep apnea, No cough, No COPD, No asthma, No emphysema, No wheezing Gastro Gastrointestinal: Yes abdominal pain, No nausea or vomiting, Yes diarrhea, No constipation, No blood in stool, Yes acid reflux, No hemorrhoids, No ulcers, No gallbladder problem, No black,tarry stools Ganesh Hematologic: No blood thinners, No blood disorders, No bleeding, No anemia, No blood clots Neuro Neurologic: Yes numbness, Yes tingling, No weakness Exam Const General: cooperative, comfortable, no acute distress Nutritional Appearance: overweight Orientation: alert, awake [facility] Head: normal to inspection Resp Effort & Inspection: normal respiratory effort Auscultation: clear to auscultation bilaterally Cardio Rate: regular rate Rhythm: regular rhythm Heart Sounds: no murmurs GI Palpation: soft, no hepatosplenomegaly Skin General: no rashes or lesions noted Neuro Cognition: normal cognition Extrem General: no calf tenderness Psych Affect: normal affect Assessment & Plan Problems 1. Gastroesophageal reflux disease, esophagitis presence not specified K21.9 2. Diarrhea, unspecified type R19.7 Plan I think it is pertinent to pursue the esophagogastroduodenoscopy with biopsy and very careful inspection of the EG junction for his reflux problems. In addition now with a new diarrhea which the patient thinks may have been related to the Dexilant therapy although he is now 3 weeks having stopped the Dexilant and is still having diarrhea it is now indeterminate. He does carry history of celiac disease actually previously diagnosed by Dr. Man Quezada. At the conclusion appointment it seemed pertinent to pursue a esophagogastroduodenoscopy with possible biopsy or polypectomy and a colonoscopy with planned random biopsies to assist with the potential diagnosis of microcytic colitis. He has had an opportunity to ask and have questions answered. We will schedule and proceed at his discretion. He is aware that we are still dealing with Covid-19 pandemic. He is aware that the [facility] reports a low local incidence. I appreciate the ongoing opportunity of assisting with surgical care Cc: Dr Andreas Heller M.D., F.A.C.S. Coding Level of Care Code Off vis,est,level 2 Diagnoses Gastroesophageal reflux disease, esophagitis presence not specified K21.9 ??Esophagitis presence: esophagitis presence not specified Diarrhea, unspecified type R19.7 ??Diarrhea type: unspecified type 03/11/20 1433 <Electronically signed by Basilio merida MD> Date _ Basilio Heller MD
[2020-03-11 14:09] VITALS: BMI 29.8
[2020-03-15 07:48] VITALS: BP 134/82; PULSE 84; RESP 16; TEMP 37.2; O2SAT 96; BMI 29.2
[2020-03-15] MEDS: Lactated Ringers 1,000 ML 100 ML IV (07:59)
--- NOTE | 2020-03-15 08:35 | HP.PCM_ITS ---
Problem List (1) Diarrhea Status: Acute Qualifiers: Diarrhea type: unspecified type (2) Gastroesophageal reflux disease Status: Acute Qualifiers: Esophagitis presence: esophagitis presence not specified History and Physical Date of Admission: 03/15/20 MR#:[id number]:[id number] Name: SARAH WHALEY Rep #: [id number] : 1935 Provider: Dr. Terrence Heller MD Age/Sex: 84/M Location: [facility] Status: Signed with Addenda ADDENDUM by Dr. Basilio Heller MD on 03/14/20 at 1649 Addendum entered and electronically signed by Basilio Heller MD 03/14/20 16:49: Previous colonoscopy February 12, [address] Nile Castaneda for lower abdominal pain constipation. No biopsies obtained at that time. Diverticulosis identified. Basilio Heller M.D., F.A.C.S. Intake Chief Complaint: GERD Allergies gluten Adverse Reaction (Verified 03/14/20 09:56) Other Medications ibuprofen 200 mg tablet 200 mg PO Q6H PRN 03/11/20 [History Confirmed 03/14/20] Assessment & Plan Problems 1. Gastroesophageal reflux disease, esophagitis presence not specified K21.9 2. Diarrhea, unspecified type R19.7 Plan - Dr. Basilio Heller MD I think it is pertinent to pursue the esophagogastroduodenoscopy with biopsy and very careful inspection of the EG junction for his reflux problems. In addition now with a new diarrhea which the patient thinks may have been related to the Dexilant therapy although he is now 3 weeks having stopped the Dexilant and is still having diarrhea it is now indeterminate. He does carry history of celiac disease actually previously diagnosed by Dr. Man Quezada. At the conclusion appointment it seemed pertinent to pursue a esophagogastroduodenoscopy with possible biopsy or polypectomy and a colonoscopy with planned random biopsies to assist with the potential diagnosis of microcytic colitis. He has had an opportunity to ask and have questions answered. We will schedule and proceed at his discretion. He is aware that we are still dealing with Covid-19 pandemic. He is aware that the [facility] reports a low local incidence. I appreciate the ongoing opportunity of assisting with surgical care Cc: Dr Andreas Heller M.D., F.A.C.S. Orders Orders: Colonoscopy 03/11/20 EGD 03/11/20 03/14/20 1649 <Electronically signed by Basilio merida MD> Date _ Basilio Heller MD cc: Dr. 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[employer] Required: No Is patient in pain?: No Allergies gluten Adverse Reaction (Verified 03/11/20 14:06) Other Medications ibuprofen 200 mg tablet 200 mg PO Q6H PRN 03/11/20 [History Confirmed 03/11/20] PFSH Medical History Gastroesophageal reflux disease (Acute) Chronic cholecystitis (Chronic) Hypertension (Chronic) Borderline hypertension (Chronic) Elevated blood-pressure reading without diagnosis of hypertension (Acute) Abdominal pain (Chronic) Malabsorption (Chronic) Chronic constipation (Chronic) Diverticulitis (Chronic) Celiac disease (Chronic) IBS (irritable bowel syndrome) (Chronic) Spinal stenosis (Chronic) Carpal tunnel syndrome (Acute) Chronic cholecystitis (Chronic) Surgical History History of appendectomy (Acute) History of back surgery (Acute) History of carpal tunnel surgery (Acute) History of cataract surgery (Acute) History of cholecystectomy (Acute) Family History Brother Heart disease Unknown Celiac disease Social History (Updated 03/11/20 @ 14:[address] 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 I had seen him in December at the time that the Covid-19 pandemic was causing cancellation of elective surgery. I got an upper GI contrast study on him showing a small esophageal diverticulum and reflux. I placed him on Dexilant. Apparently his initial dosing seem to help him with his severe reflux but then subsequently he developed diarrhea. Apparently on further searching Dexilant can cause diarrhea in folks who have celiac disease and he does. So he stopped the Dexilant he has had some recurrent problems now with reflux his diarrhea is improving but has not resolved and that is now been for 3 weeks. By previous history he was supposed to have another colonoscopy 2018. The current problems now are reflux disease intolerance to Dexilant diarrhea of undetermined etiology. ROS General General: No weight change, appetite, fatigue, colon cancer, breast cancer or weakness HEENT HEENT: No difficulty swallowing, eye injury, eye surgery, swollen glands or hoarseness Endo Endocrine: No thyroid disease, diabetes mellitus, thyroid cancer, Hair loss, heat intolerance or cold intolerance Skin Skin: No rash or changing moles Musc Musculoskeletal: Yes back problems and arthritis; no rheumatoid arthritis, gout or joint pain Cardio Cardiovascular: No murmur, pacemaker, heart disease, atrial fibrillation, high blood pressure, heart attack, heart stent, palpitations, shortness of breat with exertion or chest pain Psych Psychiatric: No depression, anxiety or hearing voices Resp Respiratory: Yes shortness of breath, No sleep apnea, No cough, No COPD, No asthma, No emphysema, No wheezing Gastro Gastrointestinal: Yes abdominal pain, No nausea or vomiting, Yes diarrhea, No constipation, No blood in stool, Yes acid reflux, No hemorrhoids, No ulcers, No gallbladder problem, No black,tarry stools Ganesh Hematologic: No blood thinners, No blood disorders, No bleeding, No anemia, No blood clots Neuro Neurologic: Yes numbness, Yes tingling, No weakness Exam Const General: cooperative, comfortable, no acute distress Nutritional Appearance: overweight Orientation: alert, awake [facility] Head: normal to inspection Resp Effort & Inspection: normal respiratory effort Auscultation: clear to auscultation bilaterally Cardio Rate: regular rate Rhythm: regular rhythm Heart Sounds: no murmurs GI Palpation: soft, no hepatosplenomegaly Skin General: no rashes or lesions noted Neuro Cognition: normal cognition Extrem General: no calf tenderness Psych Affect: normal affect Assessment & Plan Problems 1. Gastroesophageal reflux disease, esophagitis presence not specified K21.9 2. Diarrhea, unspecified type R19.7 Plan I think it is pertinent to pursue the esophagogastroduodenoscopy with biopsy and very careful inspection of the EG junction for his reflux problems. In addition now with a new diarrhea which the patient thinks may have been related to the Dexilant therapy although he is now 3 weeks having stopped the Dexilant and is still having diarrhea it is now indeterminate. He does carry history of celiac disease actually previously diagnosed by Dr. Man Quezada. At the conclusion appointment it seemed pertinent to pursue a esophagogastrod uodenoscopy with possible biopsy or polypectomy and a colonoscopy with planned random biopsies to assist with the potential diagnosis of microcytic colitis. He has had an opportunity to ask and have questions answered. We will schedule and proceed at his discretion. He is aware that we are still dealing with Covid-19 pandemic. He is aware that the [facility] reports a low local incidence. I appreciate the ongoing opportunity of assisting with surgical care Cc: Dr Andreas Heller M.D., F.A.C.S. Coding Level of Care Code Off vis,est,level 2 Diagnoses Gastroesophageal reflux disease, esophagitis presence not specified K21.9 ??Esophagitis presence: esophagitis presence not specified Diarrhea, unspecified type R19.7 ??Diarrhea type: unspecified type 03/11/20 1433 <Electronically signed by Basilio merida MD> Date _ Basilio Heller MD I have re-examined the patient. There are no clinical changes since date of exam. Procedure Criteria Procedure Type: Elective COVID Risk Discussion: The surgeon/proceduralist and patient have discussed in detail the risk of exposure to and/or potential harm posed by the COVID-19 virus with having a surgery/procedure at this time versus the risk of delaying the surgery/procedure. It is not possible to know either the risk of delaying the surgery or procedure or chance of getting an infection with perfect accuracy, but a joint decision was made between the patient and the surgeon/proceduralist to proceed at this time with the scheduled surgery/procedure as indicated on the consent form.
--- NOTE | 2020-03-15 08:45 | IMM_PTH ---
PATIENT: SARAH WHALEY LOC: [facility] U#:[id number] AGE/SX: 84/M ROOM: RE03/15/[address]: Dr. Basilio Heller MD : 1935 BED: DIS: 03/15/2020 SPEC #: [id number] RECD: 03/16/20 09:29 STATUS: AI REKeyon #: [id number] MAXIMINO: 03/15/20 08:[address]: Basilio Heller DEPT: IMMUNOHISTOCHEMISTRY RECD BY: Bhumika Trimble ENTERED: 03/16/20 09:30 SP TYPE: IMMUNO OTHR DR: Dr. Andreas Macias MD Tissues: B - Stomach, NOS Procedures: H Pylori (initial) PHYSICIAN & INSTITUTION [place] [address] SPECIMEN INFORMATION: Tissue Source: B - Antrum biopsy Clinical Info: GERD, diarrhea Specimen Number: [id number] CPT code: 84777 METHODOLOGY: Deparaffinized sections of prefer/formalin-fixed tissue or PAP/DQ stained slides are incubated with monoclonal/polyclonal antibodies/oligonucleotide probes. Localization is made via biotin free immunoperoxidase method. Appropriate controls are performed and reacted as expected. Results on target cell population are indicated in the following table: RESULTS: ANTIBODY / CLONE RESULT Block B H Pylori (polyclonal) negative These tests were developed and their performance characteristics determined by [facility]. They may not have been cleared or approved by the U.S. Food and Drug Administration. The FDA has determined that such clearance or approval is not necessary. INTERPRETATION: B. Antrum biopsy: Negative for Helicobacter pylori organisms. SJ:juan luis 03/18/20
--- NOTE | 2020-03-15 08:45 | EGD_PTH ---
PATIENT: SARAH WHALEY LOC: [facility] [place] [facility] U#:[id number] AGE/SX: 84/M ROOM: RE03/15/[address]: Dr. Basilio Heller MD : 1935 BED: DIS: 03/15/2020 SPEC #: [id number] RECD: 03/15/20 12:35 STATUS: AI SHAYE #: [id number] MAXIMINO: 03/15/20 08:[address]: Basilio Heller DEPT: SURGICAL PATHOLOGY RECD BY: Tequila [place] ENTERED: 03/16/20 09:01 SP TYPE: EGD BIOPSY OT DR: Dr. Andreas Macias MD Tissues: A - Duodenum, NOS B - Gastric mucous membrane C - Esophagus, NOS D - COLON BIOPSY Procedures: Trichrome (control) Special Stain Group II Surgery Specimen Level IV HEADER OPERATION: Colonoscopy, EGD ([facility]) PRE-OP DIAGNOSIS: GERD, diarrhea TISSUE SUBMITTED: A - Duodenum biopsy, B - Antrum biopsy for histo and H. pylori, C - Distal esophagus biopsy, D - Random colonic biopsy MICROSCOPIC DIAGNOSIS A. Duodenum, biopsy: Fragments of small intestinal mucosa with moderate non-specific chronic inflammation. B. Antrum, biopsy: Mild gastritis. See microscopic description and comment. C. Distal esophagus, biopsy: Fragments of squamous epithelium with reactive changes. D. Colon, random biopsy: Fragments of colonic mucosa with focal changes consistent with collagenous colitis. See comment. SJ:juan luis 03/17/20 COMMENT B. The results of immunohistochemistry for Helicobacter pylori will be reported separately ([id number]). D. Trichrome stain with matched control shows focal thickening of subepithelial collagen band. Case has been reviewed in consultation with Dr. Adan who concurs with the above diagnosis. IDC:AM MICROSCOPIC DESCRIPTION Slides are reviewed. B. The specimen shows fragments of gastric mucosa with chronic inflammatory cell infiltrates in the lamina propria consisting of lymphocytes and plasma cells, consistent with mild chronic gastritis. GROSS DESCRIPTION A - Received in fixative is one container labeled with the patient's name and designated duodenum biopsy. The specimen consists of multiple irregular fragments of light elizabeth soft tissue that in aggregate measure 0.5 x 0.2 x 0.1 cm. The specimen is totally submitted in one cassette. B - Received in fixative is one container labeled with the patient's name and designated antrum biopsy. The specimen consists of one irregular fragment of light elizabeth soft tissue that measures 0.6 x 0.2 x 0.1 cm. The specimen is totally submitted in one cassette. C - Received in fixative is one container labeled with the patient's name and designated distal esophagus biopsy. The specimen consists of multiple irregular fragments of light elizabeth soft tissue that in aggregate measure 0.6 x 0.5 x 0.1 cm. The specimen is totally submitted in one cassette. D - Received in fixative is one container labeled with the patient's name and designated random colon biopsy. The specimen consists of multiple irregular fragments of light elizabeth soft tissue that in aggregate measure 1.3 x 1.2 x 0.1 cm. The specimen is totally submitted in one cassette. / AM:juan luis 03/16/20 TC:3 CPT: 52664 x4, 43898
[2020-03-15 10:10] VITALS: BP 116/57; BP 134/82; PULSE 69; RESP 14; TEMP 36; O2SAT 97
--- NOTE | 2020-03-15 10:12 | OP.CCLET_ITS ---
03/15/2020 Andreas Macias [address] [place] [address] Re : Upper GI endoscopy procedure for Bret Anneler Dear Dr. Macias This procedure was performed on Sunday, March 15, 2020. My impressions and recommendations are as follows: Impressions : - Reflux esophagitis. Biopsied. - Z-line variable, 38 cm from the incisors. - Small hiatal hernia. - Erythematous mucosa in the antrum. Biopsied. - Normal examined duodenum. Biopsied. Recommendations : - Discharge patient to home. - Resume previous diet. - Continue present medications. - Telephone my office for pathology results in 1 week. My findings are described in the full procedure note, which is enclosed. If I can be of further assistance, please feel free to contact me at Doctor phone number(s): Work: . Sincerely, Basilio Heller MD 03/15/2020 10:11:23 AM This report has been signed electronically.
--- NOTE | 2020-03-15 10:12 | OP.EGD_ITS ---
Patient Name: Bret Rivera Procedure Date: 03/15/2020 9:29 AM Date of : 1935 Age: 84 Procedure: Upper GI endoscopy Indications: Epigastric abdominal pain, Heartburn Providers: Basilio Heller MD Referring MD: Basilio Heller MD Medicines: See the Anesthesia note for documentation of the administered medications Complications: No immediate complications. Procedure: Pre-Anesthesia Assessment: - Prior to the procedure, a History and Physical was performed, and patient medications and allergies were reviewed. The patient's tolerance of previous anesthesia was also reviewed. The risks and benefits of the procedure and the sedation options and risks were discussed with the patient. All questions were answered, and informed consent was obtained. Prior Anticoagulants: The patient has taken no previous anticoagulant or antiplatelet agents. ASA Grade Assessment: II - A patient with mild systemic disease. After reviewing the risks and benefits, the patient was deemed in satisfactory condition to undergo the procedure. After obtaining informed consent, the endoscope was passed under direct vision. Throughout the procedure, the patient's blood pressure, pulse, and oxygen saturations were monitored continuously. The gastroscope was introduced through the mouth, and advanced to the second part of duodenum. The upper GI endoscopy was accomplished without difficulty. The patient tolerated the procedure well. Scope In: 9:38:36 AM Scope Out: 9:43:20 AM Total Procedure Duration Time 0 hours 4 minutes 44 seconds Findings: Esophagitis with no bleeding was found 38 cm from the incisors. Biopsies were taken with a cold forceps for histology. The Z-line was variable and was found 38 cm from the incisors. A moderate hiatal hernia was present. Diffuse mildly erythematous mucosa without bleeding was found in the gastric antrum. Biopsies were taken with a cold forceps for histology. The examined duodenum was normal. Biopsies were taken with a cold forceps for histology. Impression: - Reflux esophagitis. Biopsied. - Z-line variable, 38 cm from the incisors. - Small hiatal hernia. - Erythematous mucosa in the antrum. Biopsied. - Normal examined duodenum. Biopsied. Recommendation: - Discharge patient to home. - Resume previous diet. - Continue present medications. - Telephone my office for pathology results in 1 week. Procedure Code(s): --- Professional --- 75477, Esophagogastroduodenoscopy, flexible, transoral; with biopsy, single or multiple Diagnosis Code(s): --- Professional --- K21.0, Gastro-esophageal reflux disease with esophagitis K22.8, Other specified diseases of esophagus K44.9, Diaphragmatic hernia without obstruction or gangrene K31.89, Other diseases of stomach and duodenum R10.13, Epigastric pain R12, Heartburn CPT copyright 2017 [employer]. All rights reserved. The codes documented in this report are preliminary and upon nanotechnician review may be revised to meet current compliance requirements. Basilio Heller MD 03/15/2020 10:11:23 AM This report has been signed electronically. Number of Addenda: 0 Note Initiated On: 03/15/2020 9:29 AM
--- NOTE | 2020-03-15 10:14 | OP.COLON_ITS ---
Patient Name: Bret Rivera Procedure Date: 03/15/2020 9:43 AM Date of : 1935 Age: 84 Procedure: Colonoscopy Indications: Clinically significant diarrhea of unexplained origin Providers: Basilio Heller MD Referring MD: Basilio Heller MD Medicines: See the Anesthesia note for documentation of the administered medications Patient Profile: Last Colonoscopy: 2017. Complications: No immediate complications. Procedure: Pre-Anesthesia Assessment: - Prior to the procedure, a History and Physical was performed, and patient medications and allergies were reviewed. The patient's tolerance of previous anesthesia was also reviewed. The risks and benefits of the procedure and the sedation options and risks were discussed with the patient. All questions were answered, and informed consent was obtained. Prior Anticoagulants: The patient has taken no previous anticoagulant or antiplatelet agents. ASA Grade Assessment: II - A patient with mild systemic disease. After reviewing the risks and benefits, the patient was deemed in satisfactory condition to undergo the procedure. After I obtained informed consent, the scope was passed under direct vision. Throughout the procedure, the patient's blood pressure, pulse, and oxygen saturations were monitored continuously. The pediatric colonoscope was introduced through the anus and advanced to the cecum, identified by appendiceal orifice and ileocecal valve. The colonoscopy was performed without difficulty. The patient tolerated the procedure well. The quality of the bowel preparation was good. The ileocecal valve and the appendiceal orifice were photographed. Scope In: 9:45:48 AM Scope Withdrawal Time 0 hours 7 minutes 17 seconds Scope Out: 10:04:29 AM Total Procedure Duration Time 0 hours 18 minutes 41 seconds Findings: Hemorrhoids were found on perianal exam. The colon (entire examined portion) was moderately tortuous. Advancing the scope required changing the patient to a supine position and using manual pressure. Scattered diverticula were found in the sigmoid colon. Biopsies for histology were taken with a cold forceps from the entire colon for evaluation of microscopic colitis. Impression: - Hemorrhoids found on perianal exam. - Tortuous colon. - Diverticulosis in the sigmoid colon. - Biopsies were taken with a cold forceps from the entire colon for evaluation of microscopic colitis. Recommendation: - Discharge patient to home. - Resume previous diet. - Continue present medications. - Repeat colonoscopy is not recommended due to current age (66 years or older) for screening purposes. Procedure Code(s): --- Professional --- 33610, Colonoscopy, flexible; with biopsy, single or multiple Diagnosis Code(s): --- Professional --- K64.9, Unspecified hemorrhoids R19.7, Diarrhea, unspecified K57.30, Diverticulosis of large intestine without perforation or abscess without bleeding Q43.8, Other specified congenital malformations of intestine CPT copyright 2017 [employer]. All rights reserved. The codes documented in this report are preliminary and upon coder operator review may be revised to meet current compliance requirements. Basilio Heller MD 03/15/2020 10:14:01 AM This report has been signed electronically. Number of Addenda: 0 Note Initiated On: 03/15/2020 9:43 AM
--- NOTE | 2020-03-15 10:14 | OP.CCLET_ITS ---
03/15/2020 Andreas Macias [address] [place] [address] Re : Colonoscopy procedure for Bret Anneler Dear Dr. Macias This procedure was performed on Sunday, March 15, 2020. My impressions and recommendations are as follows: Impressions : - Hemorrhoids found on perianal exam. - Tortuous colon. - Diverticulosis in the sigmoid colon. - Biopsies were taken with a cold forceps from the entire colon for evaluation of microscopic colitis. Recommendations : - Discharge patient to home. - Resume previous diet. - Continue present medications. - Repeat colonoscopy is not recommended due to current age (66 years or older) for screening purposes. My findings are described in the full procedure note, which is enclosed. If I can be of further assistance, please feel free to contact me at Doctor phone number(s): Work: . Sincerely, Basilio Heller MD 03/15/2020 10:14:01 AM This report has been signed electronically.
[2020-03-15 10:15] VITALS: BP 101/78; BP 134/82; PULSE 70; RESP 16; O2SAT 96
[2020-03-15 10:20] VITALS: BP 124/53; BP 134/82; PULSE 68; RESP 16; O2SAT 98
[2020-03-15 10:25] VITALS: BP 121/59; BP 134/82; PULSE 69; RESP 14; TEMP 36; O2SAT 99
[2020-03-15 10:38] VITALS: BP 134/82
== END 2020-03-15 11:12 | disposition home or self-care (01) ==
LOC: SDC 07:31 → AC 07:32
PROVIDERS: PCP Family Medicine; Referring Provider Surgery; Visit Provider Surgery
PROC: 0DJD8ZZ Inspection of Lower Intestinal Tract, Via Natural or Artificial Opening Endoscopic (ICD-10-PCS; CPT 45378; principal; 2020-03-15 08:40)
DX: K21.0 Gastro-esophageal reflux disease with esophagitis (principal); K44.9 Diaphragmatic hernia without obstruction or gangrene; K64.9 Unspecified hemorrhoids; K57.30 Diverticulosis of large intestine without perforation or abscess without bleeding; Q43.8 Other specified congenital malformations of intestine; I10 Essential (primary) hypertension; K90.9 Intestinal malabsorption, unspecified; K58.0 Irritable bowel syndrome with diarrhea; K90.0 Celiac disease; Z11.59 Encounter for screening for other viral diseases
CPT/HCPCS: 43239; 45380; 87635; 88305; 88313; 88342; G2023; J7120; J2405; U0003

== ENCOUNTER 2020-11-30 08:10 | Outpatient (RCR) | payer MEDICARE, OTHER, SELFPAY ==
[2020-11-18 08:42] VITALS: BMI 31.5
== END 2020-11-30 23:59 ==
LOC: IMMUN 08:10
PROVIDERS: PCP Family Medicine; Visit Provider Family Medicine
DX: Z23 Encounter for immunization (principal)
CPT/HCPCS: 0011A; 0012A